=== PATIENT | female | born 1955 | race Caucasian/White ===

== ENCOUNTER 2021-06-25 09:48 | Inpatient (IN) | payer OTHER ==
--- OUTSIDE RECORDS SUMMARY | 2021-06-25 09:51 | XMS REPORT | Continuity of Care Document ---
:1955 Author Organization [facility] t Address [address] [place] [address] Care Team Providers Name Role Phone Estefany Doty MD Primary Care Physician Alfreda KAUFMAN, Carey Attending Clinician Unavailable Problems Condition Condition Condition Status Onset Resolution Last Treating Co mments Source Name Details Category Date Date Treatment Clinician Date Neuropathy Neuropathy Disease Active [place] 2-10 [facility] 00:00: st 00 Osteoarthr Osteoarthr Disease Active [place] itis itis 2-10 Methodi 00:00: st 00 Type 2 Type 2 Disease Active [place] diabetes diabetes 2-10 Method i mellitus mellitus 00:00: st 00 HLD HLD Disease Active [place] (hyperlipi (hyperlipi 2-10 Me thodi demia) demia) 00:00: st 00 Hypertensi Hypertensi Disease Active [place] on on 2-10 Methodi 00:00: st 00 Episodic Episodic Disease Active Overview: Rosales [place] mood mood 2-10 Formattin Methodi disorder disorder 00:00: g of this st note might be different from the original. Mood disorder Allergies, Adverse Reactions, Alerts Allergy Allergy Status Severity Reaction(s) Onset Inactive Treating Comm ents Source Name Type Date Date Clinician Scotty Propensi Active Moe Inhibito ty to 08-04 Methodi rs adverse 00:00: st reaction 00 s to drug Lisinopr Propensi Active [place] ty to 08-04 Methodi adverse 00:00: st reaction 00 s to drug Social History Social Habit Start Date Stop Date Quantity Comments Source Alcohol intake 2017-01-24 2017-01-24 Current [facility] thodist 00:00:00 00:00:00 non-drinker of alcohol (finding) Sex Ass[birth year] [facility] ethodist 00:00:00 00:00:00 Smoking Status Start Date Stop Date Source Never smoker [place] Methodis t Medications Ordered Filled Start Stop Current Ordering Indication Dosage Frequency Signature Comments Components Source Medication Medication Date Date Medication? Clinician (SIG) Name Name Bactrim DS Bactrim DS 2020-0 2020- No Yao [address] [facility] Pyridium Pyridium 2020-0 2020- No Yao [address] [facility] 07[facility] - 00:[facility]: 00:00 meals [facility] 00 :00 [facility] Wellbutrin Wellbutrin 2019-0 Yes Yao [address] [facility] XL XL 07-03 [facility] - 00:[facility]: morning [facility] 00 [facility] Magnesium Magnesium 2019-0 2020- No Yao [address] [facility] 07-02-04 [facility] - 00:00: 00:00 meal [facility] 00 :00 [facility] Sure Sure 2018-0 Yes Yao [address] [facility] Comfort Pen Comfort Pen 07-04 [facility] [place] 00:[place]: [facility] 00 [facility] simvastatin Yes TAKE 1 [place] (ZOCOR) 10 6-09 TABLET Methodi MG tablet 00:00: DAILY st 00 glimepiride Yes TAKE 1 [place] (AMARYL) 4 5-17 TABLET [facility]i MG tablet 00:00: DAILY st JARDIANCE 2016- Yes TAKE 1 [place] 25 mg 5-16 TABLET [facility]i tablet 00:00: DAILY st buPROPion Yes Depression TAKE 1 Moe XL 4-25 with TABLET Methodi (WELLBUTRIN 00:00: anxiety DAILY st XL) 150 MG 00 24 hr tablet nystatin Yes APPLY Abhi (MYCOSTATIN 4-25 TOPICALLY Met aleah ) 100,000 00:00: TWICE A st unit/gram 00 DAY cream benzonatate Yes 100mg [id number] Take 1 Abhi (TESSALON) 3-10 [id number] capsule Methodi 100 MG 00:00: 3D ([address] capsule 00 total) by mouth 3 (three) times a day as needed for cough. BD INSULIN Yes USE [place] PEN NEEDLE 02-03 DIRECTED Metho di UF MINI 31 00:00: st gauge x 00 02/10" needle valsartan Yes TAKE 1 [place] (DIOVAN) 3-09 TABLET [facility]i 320 MG 00:00: DAILY st tablet 00 metFORMIN Yes TAKE 1 [place] (GLUCOPHAGE 3-03 TABLET Method i ) 1,000 mg 00:00: TWICE A st tablet DAY FREESTYLE Yes USE TO [place] LITE STRIPS 3-03 TEST TWICE Me thodi strip test 00:00: A DAY st strips 00 cetirizine Yes 10mg QD Take 10 mg [place] (ZyrTEC) 10 2-27 by mouth Meth dany MG tablet 10:01: daily. st 19 multivitami Yes 1{tbl} QD Take 1 [place] 2-27 tablet by Miguelito (THERAGRAN) 10:00: mouth st tablet 22 daily. CYANOCOBALA Yes 1{tbl} QD Take 1 [place] MIN, 2-27 tablet by Miguelito VITAMIN 10:00: mouth st B-12, 22 daily. (VITAMIN B-12 ORAL) LACTOBACILL Yes 1{capsu QD Take 1 [place] US 2-27 le} capsule by Miguelito ACIDOPHILUS 10:00: mouth st (PROBIOTIC 22 daily. ORAL) fexofenadin Yes 1{tbl} QD Take 1 [place] e-pseudoepH 2-27 tablet by Met bullard EDrine 09:59: mouth st (DAYLIN-D 07 daily. 24) 180-240 mg per 24 hr tablet naproxen Yes 250mg Q.5D Take 250 [place] (NAPROSYN) 2-27 mg by Methodi 250 MG 09:59: mouth 2 st tablet 07 (two) times a day with meals. traMADol Yes 50mg Q6H Take 50 mg Marcin ston (ULTRAM) 50 2-27 by mouth Meth dany mg tablet 09:34: every 6 st 09 (six) hours as needed for moderate pain. PROAIR HFA Yes USE 2 [place] 90 2-03 INHALATION Methodi mcg/actuati 00:00: S EVERY 6 s t on inhaler 00 HOURS NEEDED FOR WHEEZING LANTUS 2015-11 Yes INJECT 60 [place] SOLOSTAR 1-22 UNITS Methodi 100 unit/mL 00:00: UNDER THE s t (3 mL) 00 SKIN EVERY insulin pen EVENING amLODIPine 2015-11 Yes TAKE 1 [place] (NORVASC) 1-01 TABLET Methodi 10 MG 00:00: DAILY st tablet 00 pen needle, Yes Type 2 Use once [place] diabetic 31 9-23 diabetes daily with Methodi gauge x 00:00: mellitus, lantus pen st 5/16" 00 uncontrolle needle d (HCC) lancets Yes [facility] Methodi 00:00: mellitus, st 00 uncontrolle d (HCC) FREESTYLE Yes USE [place] FREEDOM 1-13 DIRECTED Methodi LITE kit 00:00: TWICE A st 00 DAY. Lantus Lantus Yes Yao inject [address] [facility] SoloStar SoloStar [facility] Gabapentin Gabapentin Yes Yao [address] [facility] Simvastatin Simvastatin Yes Yao [address] [facility] - evening [facility] Amlodipine Amlodipine Yes Yao [address] [facility] Besylate Besylate [facility] Trulicity Trulicity Yes Yao as [facility] Aspirin Aspirin Yes Yao [address] Adult Adult [facility] Gabapentin Gabapentin Yes Yao TAKE [address] [facility] [facility] CAPSULE [facility] - TWICE A Memoria DAY l [facility] Metformin Metformin Yes Yao [address] HCl HCl [facility] with a [facility] - meal [facility] Zyrtec Zyrtec Yes Yao 1 tablet [facility] Allergy Allergy [facility] Valsartan Valsartan Yes Yao [address] [facility] Immunizations Ordered Filled Immunization Date Status Comments Sourc e Immunization Name Name Afluria single dose Afluria single dose 2019-08-[address] [facility] 00[facility]00 [facility] Influenza, 2015-08-27 Completed Moe Method ist Quadrivalent 00:00:00 Tdap 2011-11-28 Completed Moe Method ist 00:00:00 Procedures This patient has no known procedures. Plan of Care Planned Activity Planned Date Details Comments Source Future Scheduled 2021-07-29 INFLUENZA VACCINE [place] [facility] 00:00:00 [code = INFLUENZA VACCINE] Future Scheduled 2020 65+ PNEUMOCOCCAL [place] [facility] 00:00:00 VACCINE (1 of 1 - PPSV23) [code = 65+ PNEUMOCOCCAL VACCINE (1 of 1 - PPSV23)] Future Scheduled 2018-08-09 BREAST CANCER [facility] thodist Test 00:00:00 SCREENING [code = BREAST CANCER SCREENING] Future Scheduled 2005 COLONOSCOPY SCREENING [facility] 00:00:00 [code = COLONOSCOPY SCREENING] Future Scheduled 2005 SHINGLES VACCINES (#1) [place] [facility] Test 00:00:00 [code = SHINGLES VACCINES (#1)] Future Scheduled [address] malignant neoplasm of cervix (procedure) [code = 492957109] Future Scheduled 1967 COVID-19 VACCINE (1) Marcin chiquita [facility] 00:00:00 [code = COVID-19 VACCINE (1)] Encounters Start End Encounter Admission Attending Care Care Encounter Source Date/Time Date/Time Type Type Clinicians Facility Department ID 2021-04-10 2021-04-10 Outpatient [facility] [id number] [facility] 2021-01-21 2021-01-21 Outpatient [facility] [id number] [facility] 2021-01-19 2021-01-19 [facility] [id number] 2021-01-05 2021-01-05 Out[facility] [id number] [facility] 2021-01-05 2021-01-05 Out[facility] [id number] [facility] 2020-10-06 2020-10-06 Outpatient [facility] [id number] [facility] 2020-09-16 2020-09-16 Outpatient [facility] [id number] [facility] 2020-07-28 2020-07-28 [facility] [id number] 10:15:00 10:15:[address] Luke s - Drive [facility] Family [facility] l Medicine Outpati ent Clinics 2020-07-03 2020-07-03 [facility] [id number] 13:15:00 13:15:00 t [place] Luke s - Drive [facility] Family [facility] l Medicine Outpati ent Clinics 2020-06-03 2020-06-03 [facility] [id number] 08:10:00 08:10:00 t [place] [address] Luke s - Drive [facility] Family Medicine l Medicine Outpati ent Clinics 2020-04-02 2020-04-02 [facility] [id number] 14:30:00 14:30:00 t [place] [address] Luke s - Drive [facility] Family Medicine l Medicine Outpati ent Clinics 2020-03-19 2020-03-19 [facility] [id number] 16:00:00 16:00:00 t [place] [address] Luke s - Drive [facility] Family Medicine l Medicine Outpati ent Clinics 2020-03-18 2020-03-18 [facility] [id number] 10:06:00 10:06:00 t [place] [address] Luke s - Drive [facility] Medicine Outpati ent Clinics 2020-02-19 2020-02-19 [facility] [id number] 10:31:00 10:31:00 t [place]ite [place] [employer] [employer] Luke s - Drive [facility] Medicine Outpati ent Clinics 2020-02-14 2020-02-14 [facility] [id number] 11:00:00 11:00:00 t [facility] Road [facility] Medicine Outpati ent Clinics 2020-02-14 2020-02-14 [facility] [id number] 09:52:00 09:52:00 t [facility] Road [facility] Medicine Outpati ent Clinics 2020-01-25 2020-01-25 [facility] [id number] 10:49:00 10:49:00 t [place]ite [employer] s - Drive [facility] Medicine Outpati ent Clinics 2020-01-12 2020-01-12 [facility] [id number] 00:00:00 00:00:00 Deandra Thompson [id number] Aurelio Suh [id number] Professio [id number] [address] 2019-12-25 2019-12-25 [facility] [id number] 09:30:00 09:30:00 t Kywa Steiner - [facility] Medicine Medicine Outpati ent Clinics 2019-11-30 2019-11-30 [facility] [id number] 08:30:00 08:30:00 t [place]ite [employer] [employer] s - Drive [facility] Medicine Outpati ent Clinics 2019-11-16 2019-11-16 [facility] [id number] 15:35:00 15:35:00 t [address] [employer] s - Drive [facility] Medicine Outpati ent Clinics 2019-11-01 2019-11-01 [facility] [id number] 10:00:00 10:00:00 t [employer] - [employer] [facility] Medicine Outpati ent Clinics 2019-10-31 2019-10-31 [facility] [id number] 09:59:00 09:59:00 t Identia [facility] Medicine Outpati ent Clinics 2019-08-28 2019-08-28 [facility] [id number] 09:51:00 09:51:00 t Identia [facility] Medicine Outpati ent Clinics 2019-08-27 2019-08-27 [facility] [id number] 09:46:00 09:46:00 t Identia [facility] Medicine Outpati ent Clinics 2019-08-22 2019-08-22 [facility] [id number] 08:15:00 08:15:[address] [facility] Outpati ent Clinics Results This patient has no known results.
[2021-06-25] MEDS ORDERED: NA CHLORIDE 0.9% 1,000 ML ONE (11:15)
[2021-06-25 11:32] LABS: Absolute Lymphocytes (CBC) 0.6 K/uL (0.7-4.9); Basophils % 0.1 % (0-1.3); Hematocrit 32.2 % (36.0-45.0); Lymphocytes % 9.6 % (15.3-44.8); RBC Red Blood Cell Count 4.16 M/uL (3.86-4.86)
[2021-06-25 11:33] LABS: Protime INR 1.19
[2021-06-25] MEDS ORDERED: METHYLPREDNISOLONE 125 MG INJ ONE (11:43)
--- NOTE | 2021-06-25 12:31 | RAD REPORT ---
EXAM DESCRIPTION: Jarvis Single View06/25/2021 10:16 am CLINICAL HISTORY: sob COMPARISON: 2016 FINDINGS: Moderate bilateral pulmonary opacities. The heart is normal size IMPRESSION: Moderate bilateral pulmonary opacities may represent pneumonia
[2021-06-25 12:56] LABS: ALT/SGPT 28 U/L (12-78); AST/SGOT 36 U/L (15-37); Albumin 2.5 g/dL (3.4-5.0); Alkaline Phosphatase 65 U/L (45-117); BUN Blood Urea Nitrogen 22 mg/dL (7-18); Bicarbonate 26 mmol/L (21-32); Bilirubin Direct 0.1 mg/dL (0-0.2); Bilirubin Total 0.3 mg/dL (0.2-1.0); Ferritin 115.6 ng/mL (8-388); Glucose Level 101 mg/dL (74-106); Magnesium 1.6 mg/dL (1.8-2.4); NT PRO-BNP 165 pg/mL (<125); Potassium 3.9 mmol/L (3.5-5.1); Protein, Total 6.6 g/dL (6.4-8.2); Sodium Level 142 mmol/L (136-145); Troponin (Emerg Dept Use Only) < 0.02 ng/mL (0.0-0.045)
--- NOTE | 2021-06-25 13:18 | RAD REPORT ---
EXAM DESCRIPTION: CT - Chest For Pe Angio - 06/25/2021 1:07 pm CLINICAL HISTORY: SOB COMPARISON: Thorax Wo Con dated 05/23/2017 FINDINGS: Chest Wall: No suspicious thyroid nodules or pathologic lymphadenopathy. Lungs: Moderate to severe bilateral airspace disease. Pleura: No significant effusions or pneumothorax. Mediastinum/freddy: No pathologic lymphadenopathy. Small hiatal hernia. Question gastroesophageal reflu x disease as there is some circumferential thickening of distal esophagus. Pulmonary arteries/Aorta: No filling defect identified. No aortic aneurysm. Heart: No significant pericardial effusion. Cardiomegaly. Upper abdomen: No acute abnormality. Bones: No acute abnormality. Scattered degenerative changes are present spine. IMPRESSION: Negative for pulmonary embolism. Moderate to severe bilateral airspace disease concernin g for multifocal pneumonia, including Covid-19.
--- NOTE | 2021-06-25 13:32 | EDPHYS ---
Physician Documentation [facility] Name: Jazlyn Granados Age: 65 yrs Sex: Female : 1955 Arrival Date: 06/25/2021 Time: 09:49 Bed 17 Private MD: ED Physician Bill Castro HPI: 06/25 10:05 This 65 yrs old Female presents to ER via Wheelchair with complaints of cp Shortness Of Breath - covid+. Historical: - Allergies: 10:03 Lisinopril; aa5 - PMHx: 10:03 Anxiety; Depression; Diabetes - IDDM; Hyperlipidemia; Hypertension; aa5 - Immunization history:: Client reports having NOT received the Covid vaccine. Flu vaccine is not up to date. - Social history:: Smoking status: Patient denies any tobacco usage or history of. Exam: 12:38 ECG was reviewed by the Attending Physician. cp Vital Signs: 09:52 BP 124 / 96; Pulse 96; Resp 30 S; Temp 97.4(TE); Pulse Ox 62% on R/A; Weight 78.93 kg aa5 (R); Height 4 ft. 11 in. (149.86 cm) (R); 09:54 Pulse Ox 93% on Non-rebreather mask; aa5 12:00 BP 93 / 51; Pulse 91; Resp 27; Pulse Ox 97% on NC; tr6 09:52 Body Mass Index 35.14 (78.93 kg, 149.86 cm) aa5 MDM: 09:58 Patient medically screened. [facility] 06/25 09:59 Order name: Basic Metabolic Panel; Complete Time: 13:06 cp 06/25 13:06 Interpretation: Normal except: CL 113; BUN 22; GFR 65. cp 06/25 09:59 Order name: CBC with Diff; Complete Time: 11:40 cp 06/25 11:40 Interpretation: Normal except: HGB 10.6; HCT 32.2; MCV 77.5; MCH 25.4; RDW 16.1; MPV cp 7.0; PAPI% 82.6; LYM% 9.6; LYMA 0.6. 06/25 09:59 Order name: LFT's; Complete Time: 13:06 cp 06/25 09:59 Order name: Magnesium; Complete Time: 13:06 cp 06/25 09:59 Order name: NT PRO-BNP; Complete Time: 13:06 06/25 09:59 Order name: PT-INR; Complete Time: 11:40 06/25 09:59 Order name: Troponin (emerg Dept Use Only); Complete Time: 13:06 06/25 09:59 Order name: CRP; Complete Time: 13:06 06/25 09:59 Order name: Ferritin; Complete Time: 13:06 06/25 09:59 Order name: Urine Microscopic Only 06/25 10:15 Order name: Blood Culture Adult (2) 06/25 10:15 Order name: Lactate; Complete Time: 11:40 06/25 10:15 Order name: Procalcitonin; Complete Time: 11:40 06/25 10:16 Order name: Blood Culture ED[facility] 06/25 13:35 Order name: ABG 06/25 13:59 Order name: Basic Metabolic Panel [facility] 06/25 13:59 Order name: Basic Metabolic Panel [facility] 06/25 13:59 Order name: Lipid Profile [facility] 06/25 13:59 Order name: Lipid Profile [facility] 06/25 13:59 Order name: Magnesium [facility] 06/25 13:59 Order name: Magnesium [facility] 06/25 13:59 Order name: CBC with Automated Diff [facility] 06/25 13:59 Order name: CBC with Automated Diff [facility] 06/25 20:26 Order name: Glucose, Ancillary Testing [facility] 06/25 22:38 Order name: Glucose, Ancillary Testing [facility] 06/26 05:20 Order name: Liver (Hepatic) Function [facility] 06/26 07:56 Order name: Glucose, Ancillary Testing [facility] 06/26 11:47 Order name: Glucose, Ancillary Testing ED[facility] 06/26 16:30 Order name: Glucose, Ancillary Testing [facility] 06/26 20:07 Order name: Glucose, Ancillary Testing [facility] 06/25 09:59 Order name: XRAY Chest (1 view); Complete Time: 12:39 06/25 12:39 Interpretation: Report reviewed. 06/25 09:59 Order name: EKG; Complete Time: 10:00 06/25 09:59 Order name: Cardiac monitoring; Complete Time: 10:23 06/25 09:59 Order name: EKG - Nurse/Tech; Complete Time: 10:23 06/25 09:59 Order name: IV Saline Lock; Complete Time: 10:44 06/25 09:59 Order name: Labs collected and sent; Complete Time: 10:23 06/25 09:59 Order name: O2 Per Protocol; Complete Time: 10:23 06/25 09:59 Order name: O2 Sat Monitoring; Complete Time: 10:23 06/25 10:57 Order name: Labs - recollect needed: recollect all please, hemolyzed; Complete Time: em1 11:26 06/25 11:59 Order name: CT Chest For PE Angio; Complete Time: 13:23 06/25 13:59 Order name: CONS Physician Consult [facility] 06/25 13:59 Order name: Consistent Carb (ADA) 1800 Jose Eduardo [facility] 06/25 14:00 Order name: Respiratory Therapy Consult [facility] 06/27 05:51 Order name: D-Dimer [facility] 06/27 05:55 Order name: Liver (Hepatic) Function [facility] 06/27 05:55 Order name: C-Reactive Protein [facility] 06/27 05:55 Order name: Ferritin [facility] 06/27 08:19 Order name: Vancomycin Level Trough [facility] 06/27 08:30 Order name: Glucose, Ancillary Testing [facility] 06/27 13:14 Order name: Glucose, Ancillary Testing [facility] 06/27 17:58 Order name: Glucose, Ancillary Testing [facility] 06/27 20:25 Order name: Glucose, Ancillary Testing EDMS EC:38 Rate is 85 beats/min. Rhythm is regular. NE interval is normal. QRS interval is normal. cp QT interval is normal. T waves are Inverted in lead aVR. Interpreted by me. Reviewed by me. Administered Medications: 10:56 Drug: NS 0.9% 1000 ml Route: IV; Rate: 1 bolus; Site: right wrist; tr6 17:18 Follow up: Response: No adverse reaction; IV Status: Completed infusion jd3 11:26 Drug: SOLU-Medrol (methylPrednisoLONE) 125 mg Route: IVP; Site: right antecubital; tr6 12:20 Follow up: Response: No adverse reaction jd3 14:50 Drug: Magnesium Sulfate 1 grams Route: IVPB; Infused Over: 1 hrs; Site: right tr6 antecubital; 17:18 Follow up: Response: No adverse reaction; IV Status: Infusion continued upon admission jd3 Disposition Summary: 06/25/21 13:31 Hospitalization Ordered Hospitalization Status: Inpatient Admission cp Provider: Bubba Velez cp Condition: Stable cp Problem: new cp Symptoms: have improved cp Bed/Room Type: Standard cp Location: [facility] ER HOLD(06/25/21 19:34) dw Room Assignment: ERHOLD-(06/25/21 19:34) dw Diagnosis - Other viral pneumonia cp - Hypoxemia cp Forms: - Medication Reconciliation Form cp - SBAR form cp Addendum: 06/29/2021 06:44 Co-signature as Attending Physician, Bill Castro MD I agree with the assessment and c parks plan of care. Signatures: Dispatcher [employer] Adelaida Vu RN RN Bill Jones MD MD cha Martinez, Eric em1 Beatriz Cid RN RN aa5 Bill Dash, PA PA Neyda Gauthier, RN RN tr6 Sathish Oakes RN jd3 Corrections: (The following items were deleted from the chart) 06/25 10:04 10:03 PMHx: Asthma; aa5 aa5 19:34 13:31 Telemetry/MedSurg (Inpatient) cp dw 19:34 13:31 cp dw
--- NOTE | 2021-06-25 13:32 | ER ---
Nurse's Notes [facility] Name: Jazlyn Granados Age: 65 yrs Sex: Female : 1955 Arrival Date: 06/25/2021 Time: 09:49 Bed 17 Private MD: Diagnosis: Other viral pneumonia;Hypoxemia Presentation: 06/25 09:52 Chief complaint: Patient states: sent by Dr. Velez, COVID-19 positive and SOB. Pt aa5 currently 62% O2 sat RA. Pt is A\T\O x 4. 09:52 Coronavirus screen: Client reports previous positive COVID test result. Ebola Screen: aa5 Patient negative for fever greater than or equal to 101.5 degrees Fahrenheit, and additional compatible Ebola Virus Disease symptoms. Initial Sepsis Screen: Does the patient meet any 2 criteria? RR > 20 per min. HR > 90 bpm. Yes Does the patient have a suspected source of infection? Yes: Productive cough/pneumonia. Risk Assessment: Do you want to hurt yourself or someone else? Patient reports no desire to harm self or others. Onset of symptoms was June 25, 2021. 09:52 Acuity: KAELYN 1 aa5 09:52 Method Of Arrival: Wheelchair aa5 Historical: - Allergies: 10:03 Lisinopril; aa5 - PMHx: 10:03 Anxiety; Depression; Diabetes - IDDM; Hyperlipidemia; Hypertension; aa5 - Immunization history:: Client reports having NOT received the Covid vaccine. Flu vaccine is not up to date. - Social history:: Smoking status: Patient denies any tobacco usage or history of. Assessment: 13:01 Reassessment: pt transported to CT. tr6 14:06 Reassessment: pt placed on high flow O2 by RT. tr6 Vital Signs: 09:52 BP 124 / 96; Pulse 96; Resp 30 S; Temp 97.4(TE); Pulse Ox 62% on R/A; Weight 78.93 kg aa5 (R); Height 4 ft. 11 in. (149.86 cm) (R); 09:54 Pulse Ox 93% on Non-rebreather mask; aa5 12:00 BP 93 / 51; Pulse 91; Resp 27; Pulse Ox 97% on NC; tr6 09:52 Body Mass Index 35.14 (78.93 kg, 149.86 cm) aa5 ED Course: 09:49 Patient arrived in ED. as 09:52 Arm band placed on Patient placed in an exam room, on a stretcher. aa5 09:58 Bill Castro MD is Attending Physician. [facility] 09:58 Bill Dash PA is PHCP. cp 09:58 Bill Castro MD is Attending Physician. 10:01 Neyda Madera RN is Primary Nurse. tr6 10:02 Triage completed. aa5 10:16 XRAY Chest (1 view) In Process Unspecified. EDMS 10:22 Patient has correct armband on for positive identification. Bed in low position. Call 5 light in reach. Side rails up X 1. Warm blanket given. telemetry monitor on. Pulse ox on. NIBP on. 10:22 Missed attempt(s): 20 gauge in right forearm. 5 10:23 EKG done, by ED staff, reviewed by Bill Castro MD. mh5 11:26 Inserted saline lock: 18 gauge in right hand, using aseptic technique. tr6 11:26 Inserted saline lock: 18 gauge in right antecubital area, using aseptic technique. tr6 Blood collected. 13:07 CT Chest For PE Angio In Process Unspecified. EDMS 13:31 Bubba Velez MD is Hospitalizing Provider. 06/27 19:43 Primary Nurse role handed off by Neyda Madera RN mw2 Administered Medications: 06/25 10:56 Drug: NS 0.9% 1000 ml Route: IV; Rate: 1 bolus; Site: right wrist; tr6 17:18 Follow up: Response: No adverse reaction; IV Status: Completed infusion jd3 11:26 Drug: SOLU-Medrol (methylPrednisoLONE) 125 mg Route: IVP; Site: right antecubital; tr6 12:20 Follow up: Response: No adverse reaction jd3 14:50 Drug: Magnesium Sulfate 1 grams Route: IVPB; Infused Over: 1 hrs; Site: right tr6 antecubital; 17:18 Follow up: Response: No adverse reaction; IV Status: Infusion continued upon admission jd3 Outcome: 13:31 Decision to Hospitalize by Provider. 06/27 21:55 Patient left the ED. mw Signatures: Dispatcher [employer] EDWA Liang, Anabela, RN Bill Reveles MD MD cha Martinez, Amelia as Calderon, Audri, RN RN aa5 Bill Dash PA PA cp Martinez, Maria 5 Sathish Oakes RN RN jd3 Delano Becerra2 Neyda Madera RN RN tr6 Corrections: (The following items were deleted from the chart) 06/25 10:04 10:03 PMHx: Asthma; aa5 aa5
[2021-06-25] MEDS ORDERED: ONDANSETRON 4 MG/2 ML VIAL IV PRN (13:55)
[2021-06-25 13:59] LABS: Arterial Blood Carboxyhemoglob 0.9 % (0-1.5); Blood Gas Oxyhemoglobin 90.3 % (94-97); Blood O2 Saturation 91.9 % (92-98.5)
[2021-06-25] MEDS ORDERED: MAGNESIUM SULFATE 1 gm IVPB 1 GM/100 ML BAG IV ONE (14:06)
[2021-06-25] MEDS ORDERED: ENOXAPARIN 40 MG/0.4 ML SQ SCH (15:00)
[2021-06-25] MEDS: INSULIN -REGULAR HUMAN 50 UNIT/0.5 ML ML SQ SCH ×2 (16:30→20:19)
[2021-06-25] MEDS ORDERED: ASPIRIN EC 81 MG TAB PO SCH (16:47)
[2021-06-25] MEDS: METHYLPREDNISOLONE 125 MG INJ IV SCH (17:00)
[2021-06-25] MEDS: IVERMECTIN 3 MG TABLET PO SCH (17:00)
[2021-06-25] MEDS ORDERED: ASPIRIN EC 81 MG TAB PO ONE (17:45)
[2021-06-25] MEDS ORDERED: ENOXAPARIN 40 MG/0.4 ML SQ ONE (17:45)
[2021-06-25 18:11] VITALS: BMI 35.1
[2021-06-25] MEDS: BARICITINIB 2 MG TABLET PO SCH (19:00)
[2021-06-25] MEDS: FAMOTIDINE 20 MG/2 ML VIAL IV SCH (20:21)
[2021-06-25] MEDS ORDERED: DIPHENHYDRAMINE 25 MG TAB/CAP ONE (20:23)
[2021-06-25] MEDS ORDERED: predniSONE 20 MG TAB ONE ×2 (20:24→20:25)
[2021-06-25] MEDS ORDERED: FAMOTIDINE 20 MG TAB ONE (20:24)
[2021-06-25] MEDS ORDERED: INSULIN -REGULAR HUMAN 50 UNIT/0.5 ML ML ONE (20:41)
[2021-06-25] MEDS ORDERED: FAMOTIDINE 20 MG/2 ML VIAL IV ONE (20:41)
[2021-06-26] MEDS: METHYLPREDNISOLONE 125 MG INJ IV SCH ×3 (00:08→16:34)
[2021-06-26] MEDS ORDERED: METHYLPREDNISOLONE 40 MG INJ ONE ×2 (00:31→09:38)
[2021-06-26 05:06] LABS: Absolute Lymphocytes (CBC) 0.7 K/uL (0.7-4.9); Basophils % 0.1 % (0-1.3); Hematocrit 30.9 % (36.0-45.0); Lymphocytes % 18.1 % (15.3-44.8); MPV 7.2 fL (7.6-11.3); RBC Red Blood Cell Count 4.01 M/uL (3.86-4.86)
[2021-06-26 05:20] LABS: ALT/SGPT 27 U/L (12-78); AST/SGOT 27 U/L (15-37); Albumin 2.3 g/dL (3.4-5.0); Alkaline Phosphatase 67 U/L (45-117); BUN Blood Urea Nitrogen 23 mg/dL (7-18); Bicarbonate 27 mmol/L (21-32); Bilirubin Direct < 0.1 mg/dL (0-0.2); Bilirubin Total 0.2 mg/dL (0.2-1.0); Glucose Level 158 mg/dL (74-106); HDL Cholesterol 44 mg/dL (40-60); LDL Cholesterol, Calculated 34 (<130); Potassium 4.3 mmol/L (3.5-5.1); Protein, Total 6.8 g/dL (6.4-8.2); Sodium Level 143 mmol/L (136-145)
[2021-06-26] MEDS: INSULIN -REGULAR HUMAN 50 UNIT/0.5 ML ML SQ SCH ×4 (07:30→20:48)
[2021-06-26] MEDS ORDERED: RIVAROXABAN 10 MG TABLET PO SCH (09:00)
[2021-06-26] MEDS: BARICITINIB 2 MG TABLET PO SCH (09:34)
[2021-06-26] MEDS: FAMOTIDINE 20 MG/2 ML VIAL IV SCH ×2 (09:34→20:49)
[2021-06-26] MEDS: RIVAROXABAN 20 MG TABLET PO SCH (09:35)
[2021-06-26] MEDS ORDERED: FAMOTIDINE 20 MG/2 ML VIAL IV ONE ×2 (09:38→21:01)
[2021-06-26] MEDS ORDERED: INSULIN -REGULAR HUMAN 50 UNIT/0.5 ML ML ONE ×3 (12:23→20:58)
--- NOTE | 2021-06-26 12:58 | P.HP ---
Certification for Inpatient Patient admitted to: Inpatient With expected LOS: >2 Midnights Practitioner: I am a practitioner with admitting privileges, knowledge of patient current condition, hospital course, and medical plan of care. Services: Services provided to patient in accordance with Admission requirements found in Title 42 Section 412.3 of the Code of Federal Regulations Patient History Date of Service: 06/26/21 Reason for admission: COUGH, DYSPNEA History of Present Illness: REGINALD HAD A TELEHEALTH VISIT WITH ME ON FOR COUGH, CONGESTION, YELLOW SPUTUM. I ASKED HER TO GET COVID TEST AND GAVE AUGMENTIN FOR SINUSITIS. SHE CALLED AGAIN YESTERDAY SAYING THAT SHE IS POSTIIVE FOR COVID AND HAS LOW OXYGEN SAT DWON TO 77%. I ASKED HER TO GET TO ER SHE WAS GIVEN STEROIDS IV, IVERMECTIN AND ORAL MONOCOLONAL ABD. SHE IS NOW ON HIGH FLOW OXYGEN. Allergies lisinopril Allergy (Severe, Verified 06/25/21 17:50) Anaphylaxis Home medications list reviewed: Yes Home Medications: Amlodipine Besylate 1 tab PO DAILY 06/26/21 Aspirin [Aspirin EC 81 MG] 1 tab PO DAILY 06/26/21 Bupropion HCl [Wellbutrin Xl] 1 tab PO DAILY 06/26/21 Gabapentin 1 tab PO TID 06/26/21 Losartan Potassium 1 tab PO DAILY 06/26/21 Metformin HCl 1 tab PO BID 06/26/21 Simvastatin 1 tab PO BEDTIME 06/26/21 Zinc 1 tab PO BEDTIME 06/26/21 - Past Medical/Surgical History Has patient received pneumonia vaccine in the past: Yes - Social History Smoking Status: Never smoker Alcohol use: No CD- Drugs: No Caffeine use: No Place of Residence: Home Review of Systems General: Weakness Physical Examination - Vital Signs Temperature: 98.0 F Blood Pressure: 145/81 Pulse: 81 Respirations: 25 Pulse Ox (%): 92 - Physical Exam General: Oriented x3, Moderate distress, Obese HEENT: Atraumatic, PERRLA, Mucous membr. moist/pink, EOMI, Sclerae nonicteric Neck: Supple, 2+ carotid pulse no bruit, No LAD, Without JVD or thyroid abnormality Respiratory: Clear to auscultation bilaterally, Normal air movement Cardiovascular: Regular rate/rhythm, Normal S1 S2 Gastrointestinal: Normal bowel sounds, No tenderness Musculoskeletal: No tenderness Integumentary: No rashes Neurological: Normal gait, Normal speech, Normal strength at 5/5 x4 extr, Normal tone, Normal affect Lymphatics: No axilla or inguinal lymphadenopathy - Studies Laboratory Data (last 24 hrs) 06/25/21 11:18: Sodium 142, Potassium 3.9, BUN 22 H, Creatinine 0.87, Glucose 101, Magnesium 1.6 L, Total Bilirubin 0.3, AST 36, ALT 28, Alkaline Phosphatase 65 Assessment and Plan - Problems (Diagnosis) (1) Pneumonia due to COVID-19 virus Current Visit: Yes Status: Acute Plan: IV STEORIDS OXYGEN HIGH FLOW. IVERMECTIN TWO DOSES. ORAL BARICITINIB. XARELTO PO. SUPPORTIVE CARE. DR. ZALDIVAR CONSULTED. (2) Hypoxia Current Visit: Yes Status: Acute Plan: ABOVE. PROGNOSIS GUARDED. SHE REFUSED TO TAKE VACCINE BEFORE. - Advance Directives Does patient have a Living Will: No Does patient have a Durable POA for Healthcare: No
[2021-06-26] MEDS: GABAPENTIN 300 MG CAP PO SCH ×2 (13:57→20:48)
[2021-06-26] MEDS ORDERED: GABAPENTIN 300 MG CAP ONE ×2 (14:11→21:01)
[2021-06-26] MEDS ORDERED: METHYLPREDNISOLONE 125 MG INJ ONE (16:01)
[2021-06-26] MEDS: METFORMIN HCL 500 MG TAB PO SCH (16:34)
[2021-06-26] MEDS: ZINC SULFATE 220 MG CAP PO SCH (20:49)
[2021-06-26] MEDS: ATORVASTATIN 10 MG TAB PO SCH (20:52)
[2021-06-26] MEDS ORDERED: HOME MED 1 EA UNK (Simvastatin [Simvastatin] 20 MG Tablet) PO SCH (21:00)
[2021-06-26] MEDS ORDERED: ATORVASTATIN 20 MG TAB ONE (21:01)
[2021-06-26] MEDS ORDERED: ZINC SULFATE 220 MG CAP ONE (21:01)
--- NOTE | 2021-06-26 22:00 | P.CNS ---
Date of Consult: 06/26/21 (Pt agreed to TV) Reason for Consult: COVID penumonia Chief Complaint: COUGH, DYSPNEA History of Present Illness: AGe 65 AW COVID pneumonia, pulmonary complaintsand hypoxemia Allergies lisinopril Allergy (Severe, Verified 06/25/21 17:50) Anaphylaxis Home Medications: Amlodipine Besylate 1 tab PO DAILY 06/26/21 Aspirin [Aspirin EC 81 MG] 1 tab PO DAILY 06/26/21 Bupropion HCl [Wellbutrin Xl] 1 tab PO DAILY 06/26/21 Gabapentin 1 tab PO TID 06/26/21 Losartan Potassium 1 tab PO DAILY 06/26/21 Metformin HCl 1 tab PO BID 06/26/21 Simvastatin 1 tab PO BEDTIME 06/26/21 Zinc 1 tab PO BEDTIME 06/26/21 - Past Medical/Surgical History -: Diabetes -: HTN -: Hyperlipidemia - Social History Smoking Status: Unknown if ever smoked Alcohol use: No CD- Drugs: No Caffeine use: No Place of Residence: Home Physical Examination Temp Pulse Resp BP Pulse Ox 98.2 F 86 27 H 119/67 86 L 06/26/21 19:58 06/26/21 19:58 06/26/21 19:58 06/26/21 19:58 06/26/21 19:58 - Problems (1) Pneumonia due to COVID-19 virus Current Visit: Yes Status: Acute Plan: AGe 65 AW COVID pneumonia/ CXRY BIalteral chanes/ Steroids, ivermectin and Barcitinib/ LAbs reviewed
[2021-06-27] MEDS: METHYLPREDNISOLONE 125 MG INJ IV SCH ×3 (00:02→17:00)
[2021-06-27] MEDS ORDERED: METHYLPREDNISOLONE 125 MG INJ ONE (00:08)
[2021-06-27 05:55] LABS: Albumin 2.5 g/dL (3.4-5.0); Bilirubin Direct 0.1 mg/dL (0-0.2); Bilirubin Total 0.3 mg/dL (0.2-1.0); C-Reactive Protein 47.1 mg/L (<3.00); Ferritin 185.3 ng/mL (8-388); Protein, Total 7.1 g/dL (6.4-8.2)
[2021-06-27] MEDS: INSULIN -REGULAR HUMAN 50 UNIT/0.5 ML ML SQ SCH ×4 (07:30→20:38)
[2021-06-27] MEDS: METFORMIN HCL 500 MG TAB PO SCH ×3 (08:00→17:00)
[2021-06-27] MEDS ORDERED: AMLODIPINE 10 MG TAB ONE (08:17)
[2021-06-27] MEDS ORDERED: GABAPENTIN 300 MG CAP ONE ×3 (08:18→20:37)
[2021-06-27] MEDS ORDERED: ASPIRIN EC 81 MG TAB PO ONE (08:18)
[2021-06-27] MEDS ORDERED: FAMOTIDINE 20 MG/2 ML VIAL IV ONE (08:18)
[2021-06-27] MEDS ORDERED: METFORMIN HCL 500 MG TAB ONE (08:18)
[2021-06-27] MEDS ORDERED: METHYLPREDNISOLONE 40 MG INJ ONE ×2 (08:18→17:50)
[2021-06-27] MEDS: ASPIRIN EC 81 MG TAB PO SCH (08:36)
[2021-06-27] MEDS: AMLODIPINE 10 MG TAB PO SCH (08:37)
[2021-06-27] MEDS: FAMOTIDINE 20 MG/2 ML VIAL IV SCH ×2 (08:37→20:37)
[2021-06-27] MEDS: GABAPENTIN 300 MG CAP PO SCH ×3 (08:37→20:37)
[2021-06-27] MEDS ORDERED: INSULIN -REGULAR HUMAN 50 UNIT/0.5 ML ML ONE ×4 (08:46→20:44)
[2021-06-27] MEDS: BARICITINIB 2 MG TABLET PO SCH (10:02)
[2021-06-27] MEDS: LOSARTAN POTASSIUM 50 MG TABLET PO SCH (10:03)
[2021-06-27] MEDS: BUPROPION HCL XL 150 MG TAB PO SCH (10:03)
[2021-06-27] MEDS: RIVAROXABAN 20 MG TABLET PO SCH (10:04)
[2021-06-27] MEDS ORDERED: PROMETHAZINE-DM 5 ML OSYR PO PRN (10:47)
--- NOTE | 2021-06-27 11:24 | P.PN ---
Subjective Date of Service: 06/27/21 Chief Complaint: REsp failure Requiring high concentration of Fio2, Better Review of Systems General: Weakness Respiratory: Shortness of Breath Physical Examination - Vital Signs Temperature: 98.2 F Blood Pressure: 122/47 Pulse: 81 Respirations: 25 Pulse Ox (%): 88 - Physical Exam General: Alert, In no apparent distress, Oriented x3 Assessment & Plan - Problems (Diagnosis) (1) Pneumonia due to COVID-19 virus Current Visit: Yes Status: Acute Plan: Stable/ CW present Therapy / On high concentration of FIO2/ VS reviewed
[2021-06-27] MEDS: PROMETH/COD 6.25/10MG SYRUP 5ML PO PRN ×2 (12:29→17:35)
[2021-06-27] MEDS ORDERED: PROMETH/COD 6.25/10MG SYRUP 5ML ONE ×2 (12:46→17:49)
[2021-06-27] MEDS ORDERED: ASCORBIC ACID 500 MG TABLET ONE ×2 (13:30→17:49)
--- NOTE | 2021-06-27 14:29 | P.PN ---
Subjective Date of Service: 06/27/21 Chief Complaint: REsp failure Subjective: Improving TALKED TO HER TODAY. SHE IS FEELING A LOT BETTER. SHE HAS NO CHEST PAIN. NO FEVER. Review of Systems 10-point ROS is otherwise unremarkable Respiratory: Cough, Shortness of Breath Physical Examination - Vital Signs Temperature: 98.1 F Blood Pressure: 120/70 Pulse: 70 Respirations: 25 Pulse Ox (%): 92 - Physical Exam General: Oriented x3, Mild distress, Moderate distress, Obese Cardiovascular: Normal S1 S2 Assessment And Plan - Current Problems (Diagnosis) (1) Pneumonia due to COVID-19 virus Current Visit: Yes Status: Acute Plan: IV STEORIDS OXYGEN HIGH FLOW. IVERMECTIN TWO DOSES. ORAL BARICITINIB. XARELTO PO. SUPPORTIVE CARE. DR. ZALDIVAR CONSULTED. CONTINUE MEDS. FEELS BETTER. HYPOXIA IS BETTER. (2) Hypoxia Current Visit: Yes Status: Acute Plan: ABOVE. PROGNOSIS GUARDED. SHE REFUSED TO TAKE VACCINE BEFORE.
[2021-06-27] MEDS: IVERMECTIN 3 MG TABLET PO SCH (17:33)
[2021-06-27] MEDS ORDERED: ATORVASTATIN 20 MG TAB ONE (20:37)
[2021-06-27] MEDS: ZINC SULFATE 220 MG CAP PO SCH (20:37)
[2021-06-27] MEDS ORDERED: FAMOTIDINE 20 MG TAB ONE (20:37)
[2021-06-27] MEDS ORDERED: ZINC SULFATE 220 MG CAP ONE (20:37)
[2021-06-27] MEDS: ATORVASTATIN 10 MG TAB PO SCH (20:37)
[2021-06-28] MEDS: METHYLPREDNISOLONE 125 MG INJ IV SCH ×3 (00:25→16:14)
[2021-06-28 07:54] LABS: Absolute Lymphocytes (CBC) 0.7 K/uL (0.7-4.9); Hematocrit 31.9 % (36.0-45.0); Lymphocytes % 7.3 % (15.3-44.8); MPV 6.9 fL (7.6-11.3); RBC Red Blood Cell Count 4.15 M/uL (3.86-4.86)
[2021-06-28 08:07] LABS: Albumin 2.4 g/dL (3.4-5.0); Bilirubin Direct 0.1 mg/dL (0-0.2); Bilirubin Total 0.3 mg/dL (0.2-1.0); Potassium 4.4 mmol/L (3.5-5.1); Protein, Total 6.6 g/dL (6.4-8.2)
[2021-06-28] MEDS: AMLODIPINE 10 MG TAB PO SCH (09:24)
[2021-06-28] MEDS: LOSARTAN POTASSIUM 50 MG TABLET PO SCH (09:25)
[2021-06-28] MEDS: GABAPENTIN 300 MG CAP PO SCH ×3 (09:25→19:36)
[2021-06-28] MEDS: METFORMIN HCL 500 MG TAB PO SCH ×2 (09:25→16:14)
[2021-06-28] MEDS: RIVAROXABAN 20 MG TABLET PO SCH (09:25)
[2021-06-28] MEDS: ASPIRIN EC 81 MG TAB PO SCH (09:25)
[2021-06-28] MEDS: FAMOTIDINE 20 MG/2 ML VIAL IV SCH ×2 (09:25→19:36)
[2021-06-28] MEDS: BUPROPION HCL XL 150 MG TAB PO SCH (09:27)
[2021-06-28] MEDS: INSULIN -REGULAR HUMAN 50 UNIT/0.5 ML ML SQ SCH ×4 (09:27→21:00)
[2021-06-28] MEDS: BARICITINIB 2 MG TABLET PO SCH (09:28)
[2021-06-28 10:11] LABS: Blood Morphology Comment NOT SEEN (NOT SEEN); Platelet Estimate ADEQ
--- NOTE | 2021-06-28 11:50 | P.PN ---
Subjective Date of Service: 06/28/21 Chief Complaint: REsp failure Subjective: Improving TALKED TO HER TODAY. SHE IS FEELING A LOT BETTER. SHE HAS NO CHEST PAIN. NO FEVER. SHE IS LOT BETTER. SHE HAS NO CHEST PAIN. SHE IS ABLE TO REDUCE OXYGEN. Physical Examination - Vital Signs Temperature: 97.4 F Blood Pressure: 144/69 Pulse: 99 Respirations: 32 Pulse Ox (%): 89 - Physical Exam General: Oriented x3, Moderate distress, Obese HEENT: Atraumatic, PERRLA, EOMI Neck: Supple, JVD not distended Respiratory: Diminished Cardiovascular: Regular rate/rhythm, Normal S1 S2 Gastrointestinal: Normal bowel sounds, No tenderness Musculoskeletal: No tenderness Integumentary: No rashes Neurological: Normal speech, Normal tone, Normal affect Lymphatics: No axilla or inguinal lymphadenopathy - Studies Medications List Reviewed: Yes Assessment And Plan - Current Problems (Diagnosis) (1) Pneumonia due to COVID-19 virus Current Visit: Yes Status: Acute Plan: IV STEORIDS OXYGEN HIGH FLOW. IVERMECTIN TWO DOSES. ORAL BARICITINIB. XARELTO PO. SUPPORTIVE CARE. DR. ZALDIVAR CONSULTED. CONTINUE MEDS. FEELS BETTER. HYPOXIA IS BETTER. CONT MEDS. (2) Hypoxia Current Visit: Yes Status: Acute Plan: ABOVE. PROGNOSIS GUARDED. SHE REFUSED TO TAKE VACCINE BEFORE.
[2021-06-28] MEDS: PROMETH/COD 6.25/10MG SYRUP 5ML PO PRN ×2 (11:53→19:35)
[2021-06-28] MEDS: ATORVASTATIN 10 MG TAB PO SCH (19:35)
[2021-06-28] MEDS: ZINC SULFATE 220 MG CAP PO SCH (19:35)
[2021-06-29] MEDS: METHYLPREDNISOLONE 125 MG INJ IV SCH ×3 (00:45→16:01)
[2021-06-29 04:52] LABS: Albumin 2.4 g/dL (3.4-5.0); Bilirubin Direct 0.1 mg/dL (0-0.2); Bilirubin Total 0.4 mg/dL (0.2-1.0); C-Reactive Protein 10.9 mg/L (<3.00); Protein, Total 6.3 g/dL (6.4-8.2)
[2021-06-29] MEDS: BARICITINIB 2 MG TABLET PO SCH (08:41)
[2021-06-29] MEDS: BUPROPION HCL XL 150 MG TAB PO SCH (08:41)
[2021-06-29] MEDS: GABAPENTIN 300 MG CAP PO SCH ×3 (08:42→20:55)
[2021-06-29] MEDS: FAMOTIDINE 20 MG/2 ML VIAL IV SCH ×2 (08:42→20:55)
[2021-06-29] MEDS: RIVAROXABAN 20 MG TABLET PO SCH (08:42)
[2021-06-29] MEDS: AMLODIPINE 10 MG TAB PO SCH (08:42)
[2021-06-29] MEDS: ASPIRIN EC 81 MG TAB PO SCH (08:43)
[2021-06-29] MEDS: LOSARTAN POTASSIUM 50 MG TABLET PO SCH (08:43)
[2021-06-29] MEDS: METFORMIN HCL 500 MG TAB PO SCH ×2 (08:43→16:01)
[2021-06-29] MEDS: INSULIN -REGULAR HUMAN 50 UNIT/0.5 ML ML SQ SCH ×4 (08:44→20:55)
[2021-06-29] MEDS ORDERED: D50W 25 GM/50 ML SYRINGE IV PRN (13:16)
[2021-06-29] MEDS ORDERED: GLUCAGON 1 MG/VIAL IM PRN (13:16)
--- NOTE | 2021-06-29 13:16 | P.PN ---
Subjective Date of Service: 06/29/21 Chief Complaint: REsp failure Subjective: Improving TALKED TO HER TODAY. SHE IS FEELING A LOT BETTER. SHE HAS NO CHEST PAIN. NO FEVER. SHE IS LOT BETTER. SHE HAS NO CHEST PAIN. SHE IS ABLE TO REDUCE OXYGEN. SHE IS ON LESSER OXYGEN NOW. IMPROVING. Review of Systems 10-point ROS is otherwise unremarkable General: Weakness, Malaise Respiratory: Shortness of Breath Physical Examination - Vital Signs Temperature: 97.9 F Blood Pressure: 111/55 Pulse: 92 Respirations: 18 Pulse Ox (%): 95 - Physical Exam General: Oriented x3, Moderate distress, Obese HEENT: Atraumatic, PERRLA, EOMI Neck: Supple, JVD not distended Respiratory: Diminished Cardiovascular: Regular rate/rhythm, Normal S1 S2 Gastrointestinal: Normal bowel sounds, No tenderness Musculoskeletal: No tenderness Integumentary: No rashes Neurological: Normal speech, Normal tone, Normal affect Lymphatics: No axilla or inguinal lymphadenopathy - Studies Medications List Reviewed: Yes Assessment And Plan - Current Problems (Diagnosis) (1) Pneumonia due to COVID-19 virus Current Visit: Yes Status: Acute Plan: IV STEORIDS OXYGEN HIGH FLOW. IVERMECTIN TWO DOSES. ORAL BARICITINIB. XARELTO PO. SUPPORTIVE CARE. DR. ZALDIVAR CONSULTED. CONTINUE MEDS. FEELS BETTER. HYPOXIA IS BETTER. CONT MEDS. DOWN TO 25 LT OXYGEN. CONTINUE MEDS. MAY NEED FEW MORE DAYS HERE. (2) Hypoxia Current Visit: Yes Status: Acute Plan: ABOVE. PROGNOSIS GUARDED. SHE REFUSED TO TAKE VACCINE BEFORE.
[2021-06-29] MEDS: PROMETH/COD 6.25/10MG SYRUP 5ML PO PRN (18:15)
[2021-06-29] MEDS: ZINC SULFATE 220 MG CAP PO SCH (20:55)
[2021-06-29] MEDS: INSULIN GLARGINE 100 UNITS/ML SQ SCH (20:55)
[2021-06-29] MEDS: ATORVASTATIN 10 MG TAB PO SCH (20:55)
[2021-06-30] MEDS: METHYLPREDNISOLONE 125 MG INJ IV SCH ×3 (01:23→16:24)
[2021-06-30 07:24] LABS: Albumin 2.4 g/dL (3.4-5.0); Bilirubin Direct 0.2 mg/dL (0-0.2); Bilirubin Total 0.5 mg/dL (0.2-1.0); Protein, Total 6.5 g/dL (6.4-8.2)
[2021-06-30] MEDS: FAMOTIDINE 20 MG/2 ML VIAL IV SCH ×2 (07:51→20:47)
[2021-06-30] MEDS: METFORMIN HCL 500 MG TAB PO SCH ×2 (07:52→16:24)
[2021-06-30] MEDS: RIVAROXABAN 20 MG TABLET PO SCH (07:52)
[2021-06-30] MEDS: GABAPENTIN 300 MG CAP PO SCH ×3 (07:52→20:47)
[2021-06-30] MEDS: ASPIRIN EC 81 MG TAB PO SCH (07:53)
[2021-06-30] MEDS: AMLODIPINE 10 MG TAB PO SCH (07:57)
[2021-06-30] MEDS: LOSARTAN POTASSIUM 50 MG TABLET PO SCH (07:57)
[2021-06-30] MEDS: BARICITINIB 2 MG TABLET PO SCH (07:58)
[2021-06-30] MEDS: INSULIN -REGULAR HUMAN 50 UNIT/0.5 ML ML SQ SCH ×4 (07:58→21:01)
[2021-06-30] MEDS: BUPROPION HCL XL 150 MG TAB PO SCH (07:59)
[2021-06-30] MEDS: PROMETH/COD 6.25/10MG SYRUP 5ML PO PRN ×2 (10:31→18:38)
[2021-06-30] MEDS: ZINC SULFATE 220 MG CAP PO SCH (20:47)
[2021-06-30] MEDS: ATORVASTATIN 10 MG TAB PO SCH (20:47)
[2021-06-30] MEDS: INSULIN GLARGINE 100 UNITS/ML SQ SCH (21:01)
--- NOTE | 2021-06-30 21:17 | P.PN ---
Subjective Date of Service: 06/30/21 Chief Complaint: REsp failure Subjective: Improving TALKED TO HER TODAY. SHE IS FEELING A LOT BETTER. SHE HAS NO CHEST PAIN. NO FEVER. SHE IS LOT BETTER. SHE HAS NO CHEST PAIN. SHE IS ABLE TO REDUCE OXYGEN. SHE IS ON LESSER OXYGEN NOW. IMPROVING. SHE IS LOT BETTER. NO CHEST PAIN. Physical Examination - Vital Signs Temperature: 97.5 F Blood Pressure: 100/56 Pulse: 94 Respirations: 18 Pulse Ox (%): 90 - Physical Exam General: Alert, In no apparent distress, Oriented x3 HEENT: Atraumatic, PERRLA, EOMI Neck: Supple, JVD not distended Cardiovascular: Regular rate/rhythm Gastrointestinal: Normal bowel sounds, No tenderness Musculoskeletal: No tenderness Integumentary: No rashes Neurological: Normal speech, Normal tone, Normal affect Lymphatics: No axilla or inguinal lymphadenopathy - Studies Microbiology Data (last 24 hrs): 06/25/21 10:45 Blood - Blood Aerobic Blood Culture - Final No growth in 5 days. 06/25/21 10:45 Blood - Blood Anaerobic Blood Culture - Final No growth in 5 days. 06/25/21 10:32 Blood - Blood Aerobic Blood Culture - Final No growth in 5 days. 06/25/21 10:32 Blood - Blood Anaerobic Blood Culture - Final No growth in 5 days. Medications List Reviewed: Yes Assessment And Plan - Current Problems (Diagnosis) (1) Pneumonia due to COVID-19 virus Current Visit: Yes Status: Acute Plan: IV STEORIDS OXYGEN HIGH FLOW. IVERMECTIN TWO DOSES. ORAL BARICITINIB. XARELTO PO. SUPPORTIVE CARE. DR. ZALDIVAR CONSULTED. CONTINUE MEDS. FEELS BETTER. HYPOXIA IS BETTER. CONT MEDS. DOWN TO 25 LT OXYGEN. CONTINUE MEDS. MAY NEED FEW MORE DAYS HERE. SHE IS DOWN TO 6 LT NC OXYGEN. CONTINUE MEDS. (2) Hypoxia Current Visit: Yes Status: Acute Plan: ABOVE. PROGNOSIS GUARDED. SHE REFUSED TO TAKE VACCINE BEFORE.
[2021-07-01] MEDS: METHYLPREDNISOLONE 125 MG INJ IV SCH ×3 (01:00→16:01)
[2021-07-01 04:11] LABS: Albumin 2.5 g/dL (3.4-5.0); Bilirubin Direct 0.2 mg/dL (0-0.2); Bilirubin Total 0.5 mg/dL (0.2-1.0); Protein, Total 6.4 g/dL (6.4-8.2)
[2021-07-01] MEDS: FAMOTIDINE 20 MG/2 ML VIAL IV SCH ×2 (08:07→20:51)
[2021-07-01] MEDS: GABAPENTIN 300 MG CAP PO SCH ×3 (08:07→20:52)
[2021-07-01] MEDS: METFORMIN HCL 500 MG TAB PO SCH ×2 (08:07→16:02)
[2021-07-01] MEDS: BUPROPION HCL XL 150 MG TAB PO SCH (08:07)
[2021-07-01] MEDS: BARICITINIB 2 MG TABLET PO SCH (08:07)
[2021-07-01] MEDS: LOSARTAN POTASSIUM 50 MG TABLET PO SCH (08:08)
[2021-07-01] MEDS: AMLODIPINE 10 MG TAB PO SCH (08:08)
[2021-07-01] MEDS: INSULIN -REGULAR HUMAN 50 UNIT/0.5 ML ML SQ SCH ×4 (08:08→20:46)
[2021-07-01] MEDS: ASPIRIN EC 81 MG TAB PO SCH (08:08)
[2021-07-01] MEDS: RIVAROXABAN 20 MG TABLET PO SCH (08:08)
[2021-07-01] MEDS: PROMETH/COD 6.25/10MG SYRUP 5ML PO PRN ×3 (08:18→20:52)
--- NOTE | 2021-07-01 18:00 | P.PN ---
Subjective Date of Service: 07/01/21 Chief Complaint: REsp failure TALKED TO HER TODAY. SHE IS FEELING A LOT BETTER. SHE HAS NO CHEST PAIN. NO FEVER. SHE IS LOT BETTER. SHE HAS NO CHEST PAIN. SHE IS ABLE TO REDUCE OXYGEN. SHE IS ON LESSER OXYGEN NOW. IMPROVING. SHE IS LOT BETTER. NO CHEST PAIN. STABLE NO CHANGES. [facility] PLANNERS ARE TRYING TO PULMONARY REHAB. Physical Examination - Vital Signs Temperature: 97.6 F Blood Pressure: 105/52 Pulse: 80 Respirations: 25 Pulse Ox (%): 92 - Physical Exam General: Oriented x3, Mild distress, Moderate distress, Obese HEENT: Atraumatic, PERRLA, EOMI Neck: Supple, JVD not distended Respiratory: Diminished Cardiovascular: Regular rate/rhythm, Normal S1 S2 Gastrointestinal: Normal bowel sounds, No tenderness Musculoskeletal: No tenderness Integumentary: No rashes Neurological: Normal speech, Normal tone, Normal affect Lymphatics: No axilla or inguinal lymphadenopathy - Studies Medications List Reviewed: Yes Assessment And Plan - Current Problems (Diagnosis) (1) Pneumonia due to COVID-19 virus Current Visit: Yes Status: Acute Plan: IV STEORIDS OXYGEN HIGH FLOW. IVERMECTIN TWO DOSES. ORAL BARICITINIB. XARELTO PO. SUPPORTIVE CARE. DR. ZALDIVAR CONSULTED. CONTINUE MEDS. FEELS BETTER. HYPOXIA IS BETTER. CONT MEDS. DOWN TO 25 LT OXYGEN. CONTINUE MEDS. MAY NEED FEW MORE DAYS HERE. SHE IS DOWN TO 6 LT NC OXYGEN. CONTINUE MEDS. (2) Hypoxia Current Visit: Yes Status: Acute Plan: ABOVE. PROGNOSIS GUARDED. SHE REFUSED TO TAKE VACCINE BEFORE. MAY BENEFIT BY REHAB.
[2021-07-01] MEDS: INSULIN GLARGINE 100 UNITS/ML SQ SCH (20:50)
[2021-07-01] MEDS: ZINC SULFATE 220 MG CAP PO SCH (20:51)
[2021-07-01] MEDS: ATORVASTATIN 10 MG TAB PO SCH (20:52)
[2021-07-02] MEDS: PROMETH/COD 6.25/10MG SYRUP 5ML PO PRN ×4 (00:35→20:57)
[2021-07-02 05:32] LABS: Albumin 2.6 g/dL (3.4-5.0); Bilirubin Direct 0.2 mg/dL (0-0.2); Bilirubin Total 0.6 mg/dL (0.2-1.0); Phosphorus 3.4 mg/dL (2.5-4.9); Protein, Total 6.5 g/dL (6.4-8.2)
[2021-07-02] MEDS: METFORMIN HCL 500 MG TAB PO SCH ×2 (08:01→16:00)
[2021-07-02] MEDS: BUPROPION HCL XL 150 MG TAB PO SCH (08:01)
[2021-07-02] MEDS: RIVAROXABAN 20 MG TABLET PO SCH (08:01)
[2021-07-02] MEDS: BARICITINIB 2 MG TABLET PO SCH (08:01)
[2021-07-02] MEDS: ASPIRIN EC 81 MG TAB PO SCH (08:01)
[2021-07-02] MEDS: LOSARTAN POTASSIUM 50 MG TABLET PO SCH (08:02)
[2021-07-02] MEDS: GABAPENTIN 300 MG CAP PO SCH ×3 (08:02→20:57)
[2021-07-02] MEDS: INSULIN -REGULAR HUMAN 50 UNIT/0.5 ML ML SQ SCH ×4 (08:02→20:58)
[2021-07-02] MEDS: FAMOTIDINE 20 MG/2 ML VIAL IV SCH ×2 (08:04→20:58)
--- NOTE | 2021-07-02 13:08 | P.PN ---
Subjective Date of Service: 07/02/21 Chief Complaint: REsp failure Subjective: Improving TALKED TO HER TODAY. SHE IS FEELING A LOT BETTER. SHE HAS NO CHEST PAIN. NO FEVER. SHE IS LOT BETTER. SHE HAS NO CHEST PAIN. SHE IS ABLE TO REDUCE OXYGEN. SHE IS ON LESSER OXYGEN NOW. IMPROVING. SHE IS LOT BETTER. NO CHEST PAIN. STABLE NO CHANGES. [facility]ERS ARE TRYING TO PULMONARY REHAB. GEN WEAK, I TALKED TO HER . SHE AGREES FOR LTAC OR SNF. Physical Examination - Vital Signs Temperature: 97.6 F Blood Pressure: 100/54 Pulse: 71 Respirations: 24 Pulse Ox (%): 97 - Physical Exam General: Oriented x3, Mild distress, Moderate distress, Obese HEENT: Atraumatic, PERRLA, EOMI Neck: Supple, JVD not distended Cardiovascular: Regular rate/rhythm, Normal S1 S2 Gastrointestinal: Normal bowel sounds, No tenderness Musculoskeletal: No tenderness Integumentary: No rashes Neurological: Normal speech, Normal tone, Normal affect Lymphatics: No axilla or inguinal lymphadenopathy - Studies Medications List Reviewed: Yes Assessment And Plan - Current Problems (Diagnosis) (1) Pneumonia due to COVID-19 virus Current Visit: Yes Status: Acute Plan: IV STEORIDS OXYGEN HIGH FLOW. IVERMECTIN TWO DOSES. ORAL BARICITINIB. XARELTO PO. SUPPORTIVE CARE. DR. ZALDIVAR CONSULTED. CONTINUE MEDS. FEELS BETTER. HYPOXIA IS BETTER. CONT MEDS. DOWN TO 25 LT OXYGEN. CONTINUE MEDS. MAY NEED FEW MORE DAYS HERE. SHE IS DOWN TO 6 LT NC OXYGEN. CONTINUE MEDS. RESUME MEDS. STILL ON BARICITINIB. FINISHING COURSE. (2) Hypoxia Current Visit: Yes Status: Acute Plan: ABOVE. PROGNOSIS GUARDED. SHE REFUSED TO TAKE VACCINE BEFORE. MAY BENEFIT BY REHAB.
--- NOTE | 2021-07-02 15:27 | P.PN ---
Subjective Date of Service: 07/02/21 Chief Complaint: REsp failure Doign well/ Little agiated/ On NC O2 Review of Systems Respiratory: Shortness of Breath Physical Examination - Vital Signs Temperature: 97.6 F Blood Pressure: 100/54 Pulse: 71 Respirations: 24 Pulse Ox (%): 97 - Physical Exam General: Alert, In no apparent distress, Oriented x3 - Studies Medications List Reviewed: Yes Assessment & Plan - Problems (Diagnosis) (1) Pneumonia due to COVID-19 virus Current Visit: Yes Status: Acute Plan: Doign well on NC O2/Change to Po pred/DC
[2021-07-02] MEDS: ATORVASTATIN 10 MG TAB PO SCH (20:57)
[2021-07-02] MEDS: predniSONE 20 MG TAB PO SCH (20:57)
[2021-07-02] MEDS: INSULIN GLARGINE 100 UNITS/ML SQ SCH (20:58)
[2021-07-02] MEDS: ZINC SULFATE 220 MG CAP PO SCH (20:58)
[2021-07-03 04:25] LABS: Absolute Lymphocytes (CBC) 0.7 K/uL (0.7-4.9); Basophils % 0.1 % (0-1.3); Hematocrit 34.4 % (36.0-45.0); Lymphocytes % 5.4 % (15.3-44.8); MPV 7.6 fL (7.6-11.3); RBC Red Blood Cell Count 4.43 M/uL (3.86-4.86)
[2021-07-03 04:40] LABS: ALT/SGPT 43 U/L (12-78); AST/SGOT 21 U/L (15-37); Albumin 2.5 g/dL (3.4-5.0); Alkaline Phosphatase 60 U/L (45-117); BUN Blood Urea Nitrogen 44 mg/dL (7-18); Bicarbonate 26 mmol/L (21-32); Bilirubin Direct 0.2 mg/dL (0-0.2); Bilirubin Total 0.4 mg/dL (0.2-1.0); Glucose Level 131 mg/dL (74-106); Potassium 4.8 mmol/L (3.5-5.1); Protein, Total 6.1 g/dL (6.4-8.2); Sodium Level 140 mmol/L (136-145)
[2021-07-03 04:41] LABS: C-Reactive Protein < 2.90 mg/L (<3.00)
[2021-07-03 05:18] LABS: Blood Morphology Comment NOT SEEN (NOT SEEN); Platelet Estimate INCR
[2021-07-03] MEDS: FAMOTIDINE 20 MG/2 ML VIAL IV SCH ×2 (09:44→21:30)
[2021-07-03] MEDS: RIVAROXABAN 20 MG TABLET PO SCH (09:44)
[2021-07-03] MEDS: METFORMIN HCL 500 MG TAB PO SCH ×2 (09:44→17:24)
[2021-07-03] MEDS: GABAPENTIN 300 MG CAP PO SCH ×3 (09:44→21:29)
[2021-07-03] MEDS: predniSONE 20 MG TAB PO SCH ×2 (09:44→21:30)
[2021-07-03] MEDS: ASPIRIN EC 81 MG TAB PO SCH (09:44)
[2021-07-03] MEDS: INSULIN -REGULAR HUMAN 50 UNIT/0.5 ML ML SQ SCH ×4 (09:44→21:31)
[2021-07-03] MEDS: BUPROPION HCL XL 150 MG TAB PO SCH (09:46)
[2021-07-03] MEDS: BARICITINIB 2 MG TABLET PO SCH (09:46)
--- NOTE | 2021-07-03 15:55 | P.PN ---
Subjective Date of Service: 07/03/21 Chief Complaint: REsp failure Subjective: Improving TALKED TO HER TODAY. SHE IS FEELING A LOT BETTER. SHE HAS NO CHEST PAIN. NO FEVER. SHE IS LOT BETTER. SHE HAS NO CHEST PAIN. SHE IS ABLE TO REDUCE OXYGEN. SHE IS ON LESSER OXYGEN NOW. IMPROVING. SHE IS LOT BETTER. NO CHEST PAIN. STABLE NO CHANGES. [facility]ANNERS ARE TRYING TO PULMONARY REHAB. GEN WEAK, I TALKED TO HER . SHE AGREES FOR LTAC OR SNF. SHE IS WALKING AROUND SHE DOES NOT WANT TO GO TO FACILITY BUT WANTS TO GO HOME. Physical Examination - Vital Signs Temperature: 96.9 F Blood Pressure: 116/61 Pulse: 82 Respirations: 30 Pulse Ox (%): 96 - Physical Exam General: Oriented x3, Mild distress, Obese HEENT: Atraumatic, PERRLA, EOMI Neck: Supple, JVD not distended Respiratory: Clear to auscultation bilaterally, Normal air movement Cardiovascular: Regular rate/rhythm, Normal S1 S2 Gastrointestinal: Normal bowel sounds, No tenderness Musculoskeletal: No tenderness Integumentary: No rashes Neurological: Normal speech, Normal tone, Normal affect Lymphatics: No axilla or inguinal lymphadenopathy - Studies Medications List Reviewed: Yes Assessment And Plan - Current Problems (Diagnosis) (1) Pneumonia due to COVID-19 virus Current Visit: Yes Status: Acute Plan: IV STEORIDS OXYGEN HIGH FLOW. IVERMECTIN TWO DOSES. ORAL BARICITINIB. XARELTO PO. SUPPORTIVE CARE. DR. ZALDIVAR CONSULTED. CONTINUE MEDS. FEELS BETTER. HYPOXIA IS BETTER. CONT MEDS. DOWN TO 25 LT OXYGEN. CONTINUE MEDS. MAY NEED FEW MORE DAYS HERE. SHE IS DOWN TO 6 LT NC OXYGEN. CONTINUE MEDS. RESUME MEDS. STILL ON BARICITINIB. FINISHING COURSE. SHE IS DOWN TO 4 LT OXYGEN NOW. (2) Hypoxia Current Visit: Yes Status: Acute Plan: ABOVE. PROGNOSIS GUARDED. SHE REFUSED TO TAKE VACCINE BEFORE. MAY BENEFIT BY REHAB.
[2021-07-03] MEDS: ZINC SULFATE 220 MG CAP PO SCH (21:29)
[2021-07-03] MEDS: ATORVASTATIN 10 MG TAB PO SCH (21:30)
[2021-07-03] MEDS: INSULIN GLARGINE 100 UNITS/ML SQ SCH (21:32)
[2021-07-04 04:16] LABS: Absolute Lymphocytes (CBC) 0.4 K/uL (0.7-4.9); Basophils % 0.5 % (0-1.3); Hematocrit 35.4 % (36.0-45.0); Lymphocytes % 3.9 % (15.3-44.8); MPV 7.8 fL (7.6-11.3); RBC Red Blood Cell Count 4.54 M/uL (3.86-4.86)
[2021-07-04 04:40] LABS: ALT/SGPT 44 U/L (12-78); AST/SGOT 15 U/L (15-37); Albumin 2.5 g/dL (3.4-5.0); Alkaline Phosphatase 65 U/L (45-117); BUN Blood Urea Nitrogen 30 mg/dL (7-18); Bicarbonate 27 mmol/L (21-32); Bilirubin Direct 0.2 mg/dL (0-0.2); Bilirubin Total 0.5 mg/dL (0.2-1.0); Glucose Level 194 mg/dL (74-106); Potassium 4.9 mmol/L (3.5-5.1); Protein, Total 6.1 g/dL (6.4-8.2); Sodium Level 138 mmol/L (136-145)
[2021-07-04 04:46] LABS: C-Reactive Protein < 2.90 mg/L (<3.00)
[2021-07-04 08:40] VITALS: BP 112/64; TEMP 98
[2021-07-04] MEDS: ASPIRIN EC 81 MG TAB PO SCH (08:52)
[2021-07-04] MEDS: GABAPENTIN 300 MG CAP PO SCH (08:52)
[2021-07-04] MEDS: METFORMIN HCL 500 MG TAB PO SCH (08:52)
[2021-07-04] MEDS: RIVAROXABAN 20 MG TABLET PO SCH (08:52)
[2021-07-04] MEDS: FAMOTIDINE 20 MG/2 ML VIAL IV SCH (08:53)
[2021-07-04] MEDS: INSULIN -REGULAR HUMAN 50 UNIT/0.5 ML ML SQ SCH (08:53)
[2021-07-04] MEDS: BARICITINIB 2 MG TABLET PO SCH (08:57)
[2021-07-04] MEDS: predniSONE 20 MG TAB PO SCH (08:57)
[2021-07-04] MEDS: BUPROPION HCL XL 150 MG TAB PO SCH (08:57)
--- NOTE | 2021-07-04 09:36 | P.DS ---
Admission Date: 06/25/21 Discharge Date: 07/04/21 Disposition: ROUTINE DISCHARGE Discharge Condition: SERIOUS Reason for Admission: REsp failure - Problems (1) Pneumonia due to COVID-19 virus Current Visit: Yes Status: Acute (2) Hypoxia Current Visit: Yes Status: Acute Brief History of Present Illness: REGINALD HAD A TELEHEALTH VISIT WITH ME ON FOR COUGH, CONGESTION, YELLOW SPUTUM. I ASKED HER TO GET COVID TEST AND GAVE AUGMENTIN FOR SINUSITIS. SHE CALLED AGAIN YESTERDAY SAYING THAT SHE IS POSTIIVE FOR COVID AND HAS LOW OXYGEN SAT DWON TO 77%. I ASKED HER TO GET TO ER SHE WAS GIVEN STEROIDS IV, IVERMECTIN AND ORAL MONOCOLONAL ABD. SHE IS NOW ON HIGH FLOW OXYGEN. Hospital Course: REGINALD CAME WITH SEVERE DYSPNEA, HYPOXIA, COVID PNEUMONIA AND WITH BARICITINIB, STEROIDS, HIGH FLOW OXYGEN SHE HAS IMPROVED WELL. SHE IS DOWN TO 3 LT NC. SHE HAS ABOUT 10 DAYS OF BARICITINIB AND SHE IS CLINICALLY STABLE TO GO HOME PER AND DR. ZALDIVAR. SHE IS GIVEN INSULIN GLUCOSE STAYS HIGH. SHE WILL FU WITH ME AND DR. ZALDIVAR. SHE ALSO HAS OXYGEN AT HOME, STEROIDS AND XARELTO. Vital Signs/Physical Exam: Temp Pulse Resp BP Pulse Ox 98 F 88 22 H 112/64 91 07/04/21 08:00 07/04/21 08:00 07/04/21 08:00 07/04/21 08:00 07/04/21 08:00 Laboratory Data at Discharge: WBC 11.30 K/uL (4.3-10.9) H 07/04/21 03:52 Hgb 11.4 g/dL (12.0-15.0) L 07/04/21 03:52 Hct 35.4 % (36.0-45.0) L 07/04/21 03:52 Plt Count 452 K/uL (152-406) H 07/04/21 03:52 PT 13.7 SECONDS (9.5-12.5) H 06/25/21 11:18 INR 1.19 06/25/21 11:18 Sodium 138 mmol/L (136-145) 07/04/21 03:52 Potassium 4.9 mmol/L (3.5-5.1) 07/04/21 03:52 BUN 30 mg/dL (7-18) H 07/04/21 03:52 Creatinine 0.77 mg/dL (0.55-1.3) 07/04/21 03:52 Glucose 194 mg/dL (74-106) H 07/04/21 03:52 Phosphorus 3.4 mg/dL (2.5-4.9) 07/02/21 04:23 Magnesium 2.0 mg/dL (1.8-2.4) 06/28/21 07:45 Total Bilirubin 0.5 mg/dL (0.2-1.0) 07/04/21 03:52 AST 15 U/L (15-37) 07/04/21 03:52 ALT 44 U/L (12-78) 07/04/21 03:52 Alkaline Phosphatase 65 U/L (45-117) 07/04/21 03:52 Triglycerides 70 mg/dL (<150) 06/26/21 04:45 Cholesterol 92 mg/dL (<200) 06/26/21 04:45 HDL Cholesterol 44 mg/dL (40-60) 06/26/21 04:45 Cholesterol/HDL Ratio 2.09 06/26/21 04:45 Home Medications: Aspirin [Aspirin EC 81 MG] 1 tab PO DAILY 06/26/21 Bupropion HCl [Wellbutrin Xl] 1 tab PO DAILY 06/26/21 Gabapentin 1 tab PO TID 06/26/21 Metformin HCl 1 tab PO BID 06/26/21 Simvastatin 1 tab PO BEDTIME 06/26/21 Zinc 1 tab PO BEDTIME 06/26/21 predniSONE [Prednisone*] 20 mg PO BID tab 07/04/21 Followup: Bubba Velez MD [Primary Care Provider] -
[2021-07-04 09:58] VITALS: O2SAT 91
== END 2021-07-04 10:56 | disposition home or self-care (01) | DRG 177 ==
LOC: ER 09:48 → ERHOLD 13:53 → 4TH 06-27 21:37
PROVIDERS: ADMIT Internal Medicine; ATTEND Internal Medicine
PROC: 5A09557 Assistance with Respiratory Ventilation, Greater than 96 Consecutive Hours, Continuous Positive Airway Pressure (ICD-10-PCS; principal; 2021-06-25)
DX: U07.1 COVID-19 (principal); J12.82 Pneumonia due to coronavirus disease 2019; E11.9 Type 2 diabetes mellitus without complications; E78.5 Hyperlipidemia, unspecified; I10 Essential (primary) hypertension; R09.02 Hypoxemia; Z79.899 Other long term (current) drug therapy; Z79.82 Long term (current) use of aspirin; Z79.84 Long term (current) use of oral hypoglycemic drugs; Z88.8 Allergy status to other drugs, medicaments and biological substances
CPT/HCPCS: 36415; 71045; 71275; 80048; 80061; 80076; 80202; 82728; 82805; 82947; 83605; 83735; 83880; 84100; 84145; 84484; 85025; 85379; 85610; 86140; 87040; 93005; 94002; 94003; 94760; 96361; 96365; 96366; 96375; 97112; 97116; 97161; 99291; 99292; J1650; J1815; J2405; J2920; J2930; J3475; J7030; J7512; Q9967

== ENCOUNTER 2021-07-20 10:46 | Emergency (ER) | payer OTHER ==
--- OUTSIDE RECORDS SUMMARY | 2021-07-20 10:50 | XMS REPORT | Continuity of Care Document ---
:[address] [facility] t Address [address] [place] [address] Care Team Providers Name Role Phone Estefany Doty MD Primary Care Physician Alfreda KAUFMAN, Aurelio Attending Clinician Unavailable Problems Condition Condition Condition Status Onset Resolution Last Treating Co mments Source Name Details Category Date Date Treatment Clinician Date Neuropathy Neuropathy Disease Active M ethodi 01-07 00:00: Hospita 00 l Osteoarthr Osteoarthr Disease Active M ethodi itis itis 01-07 00:00: Hospita 00 l Type 2 Type 2 Disease Active Methodi diabetes diabetes 01-07 mellitus mellitus 00:00: Hospit a 00 l HLD HLD Disease Active Methodi (hyperlipi (hyperlipi 01-07 demia) demia) 00:00: Hospita 00 l Hypertensi Hypertensi Disease Active M ethodi on on 01-07 00:00: Hospita 00 l Episodic Episodic Disease Active Overview: Me thodi mood mood 2- Formattin st disorder disorder 00:00: g of this Hos margareth 00 note l might be different from the original. Mood disorder Allergies, Adverse Reactions, Alerts Allergy Allergy Status Severity Reaction(s) Onset Inactive Treating Comm ents Source Name Type Date Date Clinician Scotty Propensi Active Methodi Inhibito ty to 08-04 rs adverse 00:00: Hospita reaction 00 l s to drug Lisinopr Propensi Active Method i il ty to 08-04 st adverse 00:00: Hospita reaction 00 l s to drug Social History Social Habit Start Date Stop Date Quantity Comments Source Alcohol intake 2017-01-24 2017-01-24 Current [facility] 00:00:00 00:00:00 non-drinker of Hospital alcohol (finding) Sex Ass[birth year] [facility] 00:[facility] 00:[facility]:00 Hospital Smoking Status Start Date Stop Date Source Never smoker [facility] Medications Ordered Filled Start Stop Current Ordering Indication Dosage Frequency Signature Comments Components Source Medication Medication Date Date Medication? Clinician (SIG) Name Name Bactrim DS Bactrim DS 2020-0 2020- No Yao [address] [facility] Pyridium Pyridium 2020-0 2020- No Yao [address] [facility] Wellbutrin Wellbutrin 2019-0 Yes Yao [address] [facility] XL XL 07-03 [facility] 00:[facility]: morning [facility] 00 l [facility] Magnesium Magnesium 2020-0 2020- No Yao [address] [facility] 07[facility] - 00:[facility] 00:[facility] meal [facility] 00 :00 Out[facility] ent Clinics Sure Sure 2018-0 Yes Yao [address] [facility] [address] Comfort Pen Comfort Pen 07-04 [facility] [place] [facility] 00 [facility] simvastatin Yes TAKE 1 Meth dany (ZOCOR) 10 6-[address] MG tablet 00:00: DAILY Hospita 00 l glimepiride Yes TAKE 1 Meth dany (AMARYL) 4 5-[address] MG tablet 00:00: DAILY Hospita 00 l JARDIANCE Yes TAKE 1 Method i 25 mg 5-[address] tablet 00:00: DAILY Hospita 00 l buPROPion Yes [id number] TAKE 1 M ethodi XL 4-[address] (WELLBUTRIN 00:00: DAILY Hospi ta XL) 150 MG 00 l 24 hr tablet nystatin Yes APPLY Methodi (MYCOSTATIN 4-[address] ) 100,000 00:00: TWICE A Hospi ta unit/gram 00 DAY l cream benzonatate Yes 100mg [id number] Take 1 Methodi (TESSALON) 3-[id number] 100 MG 00:00: 3D (100 mg Hospita capsule 00 total) by l mouth 3 (three) times a day as needed for cough. BD INSULIN Yes USE Metho di PEN NEEDLE 02-[address] [facility]F MINI 31 00:00: Hospita gauge x 00 l 02/10" needle valsartan Yes TAKE 1 Method i (DIOVAN) 3-[address] 320 MG 00:00: DAILY Hospita tablet 00 l metFORMIN Yes TAKE 1 Method i (GLUCOPHAGE 3-[address] ) 1,000 mg 00:00: TWICE A Hosp patti tablet 00 DAY l FREESTYLE Yes USE TO Method i LITE STRIPS [address] strip test 00:00: A DAY Hospit a strips 00 l cetirizine Yes 10mg QD Take 10 mg M ethodi (ZyrTEC) 10 2-[address] MG tablet 16:01: daily. Hospit a 19 l multivitami Yes 1{tbl} QD Take 1 Me thodi n 2-27 tablet by (THERAGRAN) 16:00: mouth Hospi ta tablet 22 daily. l CYANOCOBALA Yes 1{tbl} QD Take 1 Me thodi MIN, 2-27 tablet by VITAMIN 16:00: mouth Hospita B-12, 22 daily. l (VITAMIN B-12 ORAL) LACTOBACILL Yes 1{capsu QD Take 1 M ethodi US 2-27 le} capsule by ACIDOPHILUS 16:00: mouth Hospi ta (PROBIOTIC 22 daily. l ORAL) fexofenadin Yes 1{tbl} QD Take 1 Me thodi e-pseudoepH 2-[address] EDrine 15:59: mouth Hospita (DAYLIN-D 07 daily. l 24) 180-240 mg per 24 hr tablet naproxen Yes 250mg Q.5D Take 250 Meth dany (NAPROSYN) 2-[address] 250 MG 15:59: mouth 2 Hospita tablet 07 (two) l times a day with meals. traMADol Yes 50mg Q6H Take 50 mg Met hodi (ULTRAM) 50 2-[address] mg tablet 15:34: every 6 Hospi ta 09 (six) l hours as needed for moderate pain. PROAIR HFA Yes USE 2 Method i 90 2-[address] mcg/actuati 00:00: S EVERY 6 H ospita on inhaler 00 HOURS l NEEDED FOR WHEEZING LANTUS 2015-11 Yes INJECT 60 Method i SOLOSTAR 1-[address] 100 unit/mL 00:00: UNDER THE H ospita (3 mL) 00 SKIN EVERY l insulin pen EVENING amLODIPine 2015-11 Yes TAKE 1 Metho di (NORVASC) 1-[address] 10 MG 00:00: DAILY Hospita tablet 00 l pen needle, Yes [id number] Use once Methodi diabetic 31 9-[address] gauge x 00:00: lantus pen Hosp patti 16" 00 l needle lancets Yes [id number] BID Metho di misc 9-[address] 00:00: Hospita 00 l FREESTYLE Yes USE Method i FREEDOM 1-[address] LITE kit 00:00: TWICE A Hospit a DAY. l Lantus Lantus Yes Yao inject [address] SoloStar SoloStar [facility] Gabapentin Gabapentin Yes Yao [address] [facility] [facility] Simvastatin Simvastatin Yes Yao [address] [facility] - evening [facility] Amlodipine Amlodipine Yes Yao [address] Besylate Besylate [facility] Trulicity Trulicity Yes Yao as [facility] Aspirin Aspirin Yes Yao [address] Adult Adult [facility] Gabapentin Gabapentin Yes Yao TAKE [address] [facility] [facility] CAP[facility]LE [facility] - TWICE A [facility] DAY l [facility] Metformin Metformin Yes Yao [address] HCl HCl [facility] - meal [facility] Zyrtec Zyrtec Yes Yao 1 tablet [facility] Allergy Allergy [facility] Valsartan Valsartan Yes Yao [address] [facility] Immunizations Ordered Filled Immunization Date Status Comments Sour e Immunization Name Name Afluria single dose Afluria single dose 2019-08-[address] [facility]00 [facility] Influenza, 2015-08-27 Completed [facility] 00:00:00 Hospital Tdap 2011-11-28 Completed [facility] 00:[facility]:00 Hospital Procedures This patient has no known procedures. Plan of Care Planned Activity Planned Date Details Comments Source Future Scheduled Test COVID-19 VACCINE (1) [facility] [code = COVID-19 VACCINE (1)] Future Scheduled Test Screening for malignant [facility] neoplasm of cervix (procedure) [code = 835884243] Future Scheduled Test COLONOSCOPY SCREENING [facility] [code = COLONOSCOPY SCREENING] Future Scheduled Test SHINGLES VACCINES (#1) [facility] [code = SHINGLES VACCINES (#1)] Future Scheduled Test BREAST CANCER SCREENING [facility] [code = BREAST CANCER SCREENING] Future Scheduled Test 65+ PNEUMOCOCCAL Me [facility] VACCINE (1 of 1 - PPSV23) [code = 65+ PNEUMOCOCCAL VACCINE (1 of 1 - PPSV23)] Future Scheduled Test INFLUENZA VACCINE [code [facility] = INFLUENZA VACCINE] Encounters Start End Encounter Admission Attending Care Care Encounter Source Date/Time Date/Time Type Type Clinicians Facility Department ID 2021-04-10 2021-04-10 Outpatient [facility] [id number] 2021-01-21 2021-01-21 Outpatient [facility] [id number] [facility] 2021-01-19 2021-01-19 Outpatient [facility] [id number] [facility] 2021-01-05 2021-01-05 [facility] [id number] [facility] 2021-01-05 2021-01-05 Out[facility] [id number] [facility] 2020-10-06 2020-10-06 [facility] [id number] [facility] 2020-09-16 2020-09-16 Out[facility] [id number] [facility] 2020-07-28 2020-07-28 [facility] [id number] 10:15:00 10:15:00 [place] Score [employer] Luke s - Drive [facility] Family Medicine l Medicine Outpati ent Clinics 2020-07-03 2020-07-03 [facility] [id number] 13:15:00 13:15:00 [place] beModel s - Drive [facility] Medicine l Medicine Outpati ent Clinics 2020-06-03 2020-06-03 [facility] [id number] 08:10:00 08:10:00 [place] beModel s - Drive [facility] Family Medicine l Medicine Outpati ent Clinics 2020-04-02 2020-04-02 [facility] [id number] 14:30:00 14:30:00 [place] beModel s - Drive [facility] Family Medicine l Medicine Outpati ent Clinics 2020-03-19 2020-03-19 [facility] [id number] 16:00:00 16:00:00 [place] beModel s - Drive [facility] Medicine l Medicine Outpati ent Clinics 2020-03-18 2020-03-18 [facility] [id number] 10:06:00 10:06:00 [place] beModel s - Drive [facility] Medicine l Medicine Outpati ent Clinics 2020-02-19 2020-02-19 [facility] [id number] 10:31:00 10:31:00 [place] Score [employer] Luke s - Drive [facility] Medicine Outpati ent Clinics 2020-02-14 2020-02-14 [facility] [id number] 11:00:00 11:00:00 [facility] Medicine Outpati ent Clinics 2020-02-14 2020-02-14 [facility] [id number] 09:52:00 09:52:00 [facility] Medicine Outpati ent Clinics 2020-01-25 2020-01-25 [facility] [id number] 10[facility]49:00 10:49:00 t [place] [employer] - is now [employer] Mo-DV s - Drive [facility] Medicine Outpati ent Clinics 2020-01-12 2020-01-12 [facility] [id number] 00:00:00 00:00:00 Deandra Thompson [id number] Aurelio [place] [id number] [facility] [id number] [address] 2019-12-25 2019-12-25 [facility] [id number] 09:30:00 09:30:00 corrine [facility]aw [facility] 2019-11-30 2019-11-30 [facility] [id number] 08:30:00 08:30:00 [place] [employer] - is now [employer] LuMo-DV s - Drive [facility] Medicine Outpati ent Clinics 2019-11-16 2019-11-16 [facility] [id number] 15:35:00 15:35:00 [place] [employer] - is now [employer] LuMo-DV s - Drive [facility] Medicine Outpati ent Clinics 2019-11-01 2019-11-01 [facility] [id number] 10:00:00 10:00:00 t [place] Score [employer] Lu[employer]-DV s - Drive [facility] Medicine Outpati ent Clinics 2019-10-31 2019-10-31 [facility] [id number] 09:59:00 09:59:00 t [employer] - Score The Board [facility] Outpati ent Clinics 2019-08-28 2019-08-28 [facility] [id number] 09:51:00 09:51:00 t [employer] [facility] Outpati ent Clinics 2019-08-27 2019-08-27 [facility] [id number] 09:46:00 09:46:00 t [employer] - Score The Board [facility] Outpati ent Clinics 2019-08-22 2019-08-22 [facility] [id number] 08:15:00 08:15:00 t [employer] [facility] Results This patient has no known results.
[2021-07-20] MEDS ORDERED: LIDOCAINE 1% MPF 5 ML VIAL ONE (15:04)
--- NOTE | 2021-07-20 15:16 | ER ---
Nurse's Notes [facility] Name: Jazlyn Granados Age: 65 yrs Sex: Female : 1955 Arrival Date: 07/20/2021 Time: 10:48 Bed DX1 Private MD: Bubba Velez V Diagnosis: Cutaneous abscess of hand Presentation: 07/20 11:39 Chief complaint: Patient states: Swelling and redness to R hand that began 8 days ago. ss Pt reports it is where she had her peripheral IV from 2 weeks ago when she was admitted for COVID. Coronavirus screen: Client denies travel out of the [place] in the last 14 days. Ebola Screen: Patient denies exposure to infectious person. Patient denies travel to an Ebola-affected area in the 21 days before illness onset. Initial Sepsis Screen: Does the patient meet any 2 criteria? No. Patient's initial sepsis screen is negative. Does the patient have a suspected source of infection? No. Patient's initial sepsis screen is negative. Risk Assessment: Do you want to hurt yourself or someone else? Patient reports no desire to harm self or others. Onset of symptoms was July 12, 2021. 11:39 Method Of Arrival: Wheelchair 11:39 Acuity: KAELYN 3 ss Historical: - Allergies: 11:41 Lisinopril; ss - PMHx: 11:41 Anxiety; Depression; Diabetes - IDDM; Hyperlipidemia; Hypertension; ss - Immunization history:: Client reports having NOT received the Covid vaccine. - Social history:: Smoking status: Patient denies any tobacco usage or history of. Screenin:45 Abuse screen: Denies threats or abuse. Denies injuries from another. Nutritional ss screening: No deficits noted. Tuberculosis screening: Never had TB. Fall Risk None identified. Assessment: 13:12 General: Appears in no apparent distress. comfortable, Behavior is calm, cooperative, ss Denies fever, feeling ill, fatigue, chills. Pain: Complains of pain in dorsal aspect of proximal phalanx of right ring finger and dorsum of right hand. Neuro: Level of Consciousness is awake, alert, obeys commands, Oriented to person, place, time, situation, Engraving Patternmaker are equal bilaterally. Cardiovascular: Pulses are palpable in right radial artery and left radial artery. Respiratory: Airway is patent Respiratory effort is even, unlabored, Respiratory pattern is regular, symmetrical. GI: Patient currently denies diarrhea, nausea, vomiting. EENT: Oral mucosa is moist. Derm: Skin is intact, is healthy with good turgor, Skin is dry, Skin is pink, warm \T\ dry. normal. Musculoskeletal: Circulation, motion, and sensation intact. Range of motion: intact in all extremities, Swelling present in dorsal aspect of proximal phalanx of right ring finger and dorsum of right hand. 14:45 Reassessment: Patient appears in no apparent distress at this time. Patient and/or ss family updated on plan of care and expected duration. Pain level reassessed. Patient is alert, oriented x 3, equal unlabored respirations, skin warm/dry/pink. Vital Signs: 11:39 BP 148 / 74; Pulse 92; Resp 18; Temp 98.2(TE); Pulse Ox 97% on 3 lpm NC; Weight 74.84 ss kg; Height 4 ft. 11 in. (149.86 cm); Pain 3/10; 11:39 Body Mass Index 33.33 (74.84 kg, 149.86 cm) ED Course: 10:48 Patient arrived in ED. mr 10:48 Bubba Velez MD is Private Physician. mr 11:41 Triage completed. ss 11:41 Arm band placed on right wrist. 13:10 UPPER EXTREMITY VENOUS UNILATE In Process Unspecified. EDMS 13:13 Andrew Vilchis PA is PHCP. jr8 13:13 Denton Mix MD is Attending Physician. jr8 14:45 Patient has correct armband on for positive identification. Bed in low position. Call ss light in reach. 15:15 Biju Perry MD is Referral Physician. jr8 15:15 Assist provider with I \T\ D: of an abscess on right hand Set up I\T\D tray. Performed by Andrew DUMONT Dressing with 4X4s, kerlix Patient tolerated well. 15:30 Lena Borrero RN is Primary Nurse. 15:30 Patient did not have IV access during this emergency room visit. ss Administered Medications: 15:00 Drug: Lidocaine (1 %) 5 ml {Note: administered by JULIA Morales.} Volume: 5 ml; Route: ss Infiltration; Outcome: 15:15 Discharge ordered by MD. ballard 15:30 Discharged to home via wheelchair, with family. 15:30 Condition: good 15:30 Discharge instructions given to patient, Instructed on discharge instructions, follow up and referral plans. medication usage, Demonstrated understanding of instructions, follow-up care, medications, Prescriptions given X 1. 15:32 Patient left the ED. Signatures: Dispatcher [employer] [facility] Nahomy Lowe Lena Borrero RN RN Andrew Vilchis PA PA jr8 Corrections: (The following items were deleted from the chart) 15:31 15:00 Lidocaine (1 %) 5 ml 5 ml Infiltration 5 ml [facility] 18:57 15:30 No provider procedures requiring assistance completed. ss
--- NOTE | 2021-07-20 15:16 | EDPHYS ---
Physician Documentation [facility] Name: Jazlyn Granados Age: 65 yrs Sex: Female : 1955 Arrival Date: 07/20/2021 Time: 10:48 Bed DX1 Private MD: Bubba Velez V ED Physician Denton Mix HPI: 07/20 15:32 This 65 yrs old Female presents to ER via Wheelchair with complaints of Hand jr8 Swelling. 15:32 The patient or guardian reports pain, swelling, tenderness. The complaints affect the jr8 dorsum right hand. Onset: The symptoms/episode began/occurred gradually. Modifying factors: The symptoms are alleviated by nothing, the symptoms are aggravated by movement. Associated signs and symptoms: The patient has no apparent associated signs or symptoms. Severity of symptoms: At their worst the symptoms were moderate, in the emergency department the symptoms are unchanged. The patient has not experienced similar symptoms in the past. The patient has been recently seen by a physician:. This is a 65-year-old female patient that presented to the emergency room for swelling of the dorsal right hand. Stated that she recently had an IV in that hand for hospitalization. After being discharged started to notice swelling around the region that had become worse.. Historical: - Allergies: 11:41 Lisinopril; ss - PMHx: 11:41 Anxiety; Depression; Diabetes - IDDM; Hyperlipidemia; Hypertension; ss - Immunization history:: Client reports having NOT received the Covid vaccine. - Social history:: Smoking status: Patient denies any tobacco usage or history of. ROS: 15:32 Eyes: Negative for injury, pain, redness, and discharge, ENT: Negative for injury, jr8 pain, and discharge, Neck: Negative for injury, pain, and swelling, Cardiovascular: Negative for chest pain, palpitations, and edema, Respiratory: Negative for shortness of breath, cough, wheezing, and pleuritic chest pain, Abdomen/GI: Negative for abdominal pain, nausea, vomiting, diarrhea, and constipation, Back: Negative for injury and pain, Neuro: Negative for headache, weakness, numbness, tingling, and seizure. 15:32 MS/extremity: Positive for erythema, pain, swelling, tenderness, of the Dorsal right hand. Exam: 15:32 Constitutional: This is a well developed, well nourished patient who is awake, alert, jr8 and in no acute distress. Cardiovascular: Regular rate and rhythm with a normal S1 and S2. No gallops, murmurs, or rubs. Normal PMI, no JVD. No pulse deficits. Respiratory: Lungs have equal breath sounds bilaterally, clear to auscultation and percussion. No rales, rhonchi or wheezes noted. No increased work of breathing, no retractions or nasal flaring. MS/ Extremity: Pulses equal, no cyanosis. Neurovascular intact. Full, normal range of motion. Neuro: Awake and alert, GCS 15, oriented to person, place, time, and situation. Cranial nerves II-XII grossly intact. Motor strength 5/5 in all extremities. Sensory grossly intact. 15:32 Skin: Patient has approximately 5 cm area of swelling of the dorsal right hand over the fourth metacarpal region. Fluctuant and painful to palpation. No surrounding cellulitis.. Vital Signs: 11:39 BP 148 / 74; Pulse 92; Resp 18; Temp 98.2(TE); Pulse Ox 97% on 3 lpm NC; Weight 74.84 ss kg; Height 4 ft. 11 in. (149.86 cm); Pain 3/10; 11:39 Body Mass Index 33.33 (74.84 kg, 149.86 cm) ss Procedures: 15:13 I \T\ D: Incision and drainage was performed for an abscess of the right dorsal hand jr8 Prepped with Betadine, Anesthetized with 3 ml's 1% Lidocaine. Incised with #11 blade. Drained moderate amount purulent fluid. bloody fluid. Loculations removed. Abscess cavity explored. Packed with iodoform gauze, Dressing: sterile 4x4 gauze, the patient tolerated the procedure well. MDM: 13:13 Patient medically screened. jr8 15:13 Data reviewed: vital signs, nurses notes, radiologic studies, ultrasound, and as a jr8 result, I will discharge patient. Data interpreted: Pulse oximetry: on room air is 97 %. Interpretation: normal. Counseling: I had a detailed discussion with the patient and/or guardian regarding: the historical points, exam findings, and any diagnostic results supporting the discharge/admit diagnosis, radiology results, the need for outpatient follow up, a hand specialist, to return to the emergency department if symptoms worsen or persist or if there are any questions or concerns that arise at home. 15:13 ED course: Discussed with patient that she needs to follow-up with hand specialist in jr8 the next 48 hours if possible. We will give her referral to Dr. Perry. In between now and then needs to start antibiotics. If she cannot get into him in the next 48 hours needs to come back for reevaluation and repacking of her hand.. 07/20 11:56 Order name: UPPER EXTREMITY VENOUS UNILATE EDND 07/20 15:31 Order name: I\T\D Setup; Complete Time: 15:31 ss Administered Medications: 15:00 Drug: Lidocaine (1 %) 5 ml {Note: administered by PA. Andrew} Volume: 5 ml; Route: ss Infiltration; Disposition: 17:29 Co-signature as Attending Physician, Denton Mix MD I agree with the assessment and rn plan of care. Attestation: The patient's history, exam findings, diagnostics, and a summary of any interventions or procedures was reviewed in detail with Andrew DUMONT. Disposition Summary: 07/20/21 15:15 Discharge Ordered Location: Home jr8 Problem: new jr8 Symptoms: have improved jr8 Condition: Stable jr8 Diagnosis - Cutaneous abscess of hand jr8 Followup: jr8 - With: Biju Perry MD - When: 48 Hours - Reason: Wound Recheck, Recheck today's complaints, Continuance of care, Re-evaluation by your physician Discharge Instructions: - Discharge Summary Sheet jr8 - Skin Abscess jr8 Forms: - Medication Reconciliation Form jr8 - Thank You Letter jr8 - Antibiotic Education jr8 - Prescription Opioid Use jr8 Prescriptions: - Bactrim DS 800-160 mg Oral Tablet - take 1 tablet by ORAL route every 12 hours for 7 days; 14 tablet; Refills: 0, jr8 Product Selection Permitted Signatures: Dispatcher [employer] EDND Denton Mix MD MD rn Smirch, Shelby, RN RN ss Roszak, Josh, PA PA jr8 Corrections: (The following items were deleted from the chart) 11:56 11:52 Extremity Venous Uni Ltd+[email or web address] ordered. EDND EDND
[2021-07-20 15:36] VITALS: BP 148/74; TEMP 98.2; O2SAT 97
--- NOTE | 2021-07-21 07:52 | RAD REPORT ---
EXAM DESCRIPTION: US - UPPER EXTREMITY VENOUS UNILATE - 07/20/2021 1:09 pm CLINICAL HISTORY: Right arm pain and swelling Imaging system malfunction precluded earlier dictation. Findings were discussed via telephone with eugene e referring clinician. COMPARISON: None. TECHNIQUE: Real-time sonographic evaluation of the right upper extremity deep venous systems was per formed. FINDINGS: Normal compressibility, flow augmentation, phasic flow and spontaneous flow are identified in the right upper extremity deep venous system. No intraluminal filling defects seen. Internal jugu lar and subclavian veins are normal as well. At the right hand area of concern there is a 4.5 x 2.5 x 2.0 centimeter heterogeneous hypoechoic focu s in the soft tissues. Presumptive diagnosis is abscess. Old hematoma is possible. IMPRESSION: No DVT in the right upper extremity. At the right hand area of concern there is a 4.5 x 2.5 x 2.0 centimeter heterogeneous hypoechoic focu s in the soft tissues. Presumptive diagnosis is abscess. Old hematoma is possible.
== END 2021-07-20 15:32 | disposition home or self-care (01) ==
LOC: ER 10:46
PROC: 0J9J0ZZ Drainage of Right Hand Subcutaneous Tissue and Fascia, Open Approach (ICD-10-PCS; principal; 2021-07-20)
DX: L02.511 Cutaneous abscess of right hand (principal); I10 Essential (primary) hypertension; Z88.8 Allergy status to other drugs, medicaments and biological substances
CPT/HCPCS: 93971; 99284

== ENCOUNTER 2021-07-22 08:18 | Emergency (ER) | payer OTHER ==
--- OUTSIDE RECORDS SUMMARY | 2021-07-22 08:21 | XMS REPORT | Continuity of Care Document ---
:1955 Author Organization [facility] t Address [address] [place] [address] Care Team Providers Name Role Phone Estefany [...] Comments Source Alcohol intake 2017-01-24 2017-01-24 Current [facility] 00:00:00 00:00:00 non-drinker of Hospital alcohol (finding) Sex Ass[birth year] [facility] 00:[facility] 00:00:00 Hospital Smoking Status Start Date Stop Date Source Never smoker [facility] Medications Ordered Filled Start Stop Current Ordering Indication Dosage Frequency Signature Comments Components Source Medication Medication Date Date Medication? Clinician (SIG) Name Name Bactrim DS Bactrim DS 2020-0 2020- No Yao [address] [facility] Pyridium Pyridium 2020-0 2020- No Yao [address] [facility] Wellbutrin Wellbutrin 2019-0 Yes Yao [address] [facility] XL XL 07-03 [facility] 00:[facility]: morning [facility] 00 [facility] Magnesium Magnesium 2020-0 2020- No Yao [address] [facility] 07[facility]02 [facility] - 00:[facility]: 00:[facility] meal [facility] 00 [facility] Clinics Sure Sure 2018-0 Yes Yao [address] [facility] Comfort Pen Comfort Pen 07-04 [facility]: [facility] 00 [facility] simvastatin Yes TAKE 1 Meth dany (ZOCOR) 10 6-[address] MG tablet 00:00: DAILY Hospita 00 l simvastatin Yes TAKE 1 Meth dany (ZOCOR) 10 6-[address] MG tablet 00:00: DAILY Hospita l glimepiride Yes TAKE 1 Meth dany (AMARYL) 4 5-[address] MG tablet 00:00: DAILY Hospita 00 l glimepiride Yes TAKE 1 Meth dany (AMARYL) 4 5-[address] MG tablet 00:00: DAILY Hospita 00 l JARDIANCE Yes TAKE 1 Method i 25 mg 5-[address] tablet 00:00: DAILY Hospita 00 l JARDIANCE Yes TAKE 1 Method i 25 mg 5-[address] tablet 00:00: DAILY Hospita 00 l buPROPion Yes [id number] TAKE 1 M ethodi XL 4-[address] (WELLBUTRIN 00:00: DAILY Hospi ta XL) 150 MG 00 l 24 hr tablet nystatin Yes APPLY Method[facility] (MYCOSTATIN 4-[address] ) 100,000 00:00: TWICE A Hospi ta unit/gram 00 DAY l cream buPROPion Yes [id number] TAKE 1 M ethodi XL 4-[address] (WELLBUTRIN 00:00: DAILY Hospi ta XL) 150 MG 00 l 24 hr tablet nystatin Yes APPLY Method[facility] (MYCOSTATIN 4-[address] ) 100,000 00:00: TWICE A Hospi ta unit/gram 00 DAY l cream benzonatate Yes 100mg Q.[id number] Take 1 [facility] (TESSALON) 3-[id number] 100 MG 00:00: 3D (100 mg Hospita capsule 00 total) by l mouth 3 (three) times a day as needed for cough. benzonatate Yes 100mg Q.[id number] Take 1 [facility] (TESSALON) 3-[id number] 100 MG 00:00: 3D (100 mg Hospita capsule 00 total) by l mouth 3 (three) times a day as needed for cough. BD INSULIN Yes USE Metho di PEN NEEDLE 3-[address] [facility] MINI 31 00:00: Hospita gauge x 00 l 16" needle valsartan Yes TAKE 1 Method i (DIOVAN) 3-[address] 320 MG 00:00: DAILY Hospita tablet 00 l BD INSULIN Yes USE Metho di PEN NEEDLE 3-[address] [facility] MINI 31 00:00: Hospita gauge x 00 l 16" needle valsartan Yes TAKE 1 Method i (DIOVAN) 3-[address] 320 MG 00:00: DAILY Hospita tablet 00 l metFORMIN Yes TAKE 1 Method i (GLUCOPHAGE 3-[address] ) 1,000 mg 00:00: TWICE A Hosp patti tablet 00 DAY l FREESTYLE Yes USE TO Method i LITE STRIPS 3-[address] strip test 00:00: A DAY Hospit a strips 00 l metFORMIN Yes TAKE 1 Method i (GLUCOPHAGE 3-[address] ) 1,000 mg 00:00: TWICE A Hosp patti tablet 00 DAY l FREESTYLE Yes USE TO Method i LITE STRIPS 3-[address] strip test 00:00: A DAY Hospit a strips 00 l cetirizine Yes 10mg QD Take 10 mg M ethodi (ZyrTEC) 10 2-[address] MG tablet 16:01: daily. Hospit a 19 l cetirizine Yes 10mg QD Take 10 mg M ethodi (ZyrTEC) 10 2-[address] MG tablet 16:01: daily. Hospit a 19 l multivitami Yes 1{tbl} QD Take 1 Me thodi n 2-[address] (THERAGRAN) 16:00: mouth Hospi ta tablet 22 daily. l CYANOCOBALA Yes 1{tbl} QD Take 1 Me thodi MIN, 2-[address] VITAMIN 16:00: mouth Hospita B-12, 22 daily. l (VITAMIN B-12 ORAL) LACTOBACILL Yes 1{capsu QD Take 1 M ethodi US 2-27 le} capsule by st ACIDOPHILUS 16:00: mouth Hospi ta (PROBIOTIC 22 daily. l ORAL) multivitami Yes 1{tbl} QD Take 1 Me thodi n 2-[address] (THERAGRAN) 16:00: mouth Hospi ta tablet 22 daily. l CYANOCOBALA Yes 1{tbl} QD Take 1 Me thodi MIN, 2-[address] VITAMIN 16:00: mouth Hospita B-12, 22 daily. l (VITAMIN B-12 ORAL) LACTOBACILL Yes 1{capsu QD Take 1 M ethodi US 2-27 le} capsule by st ACIDOPHILUS 16:00: mouth Hospi ta (PROBIOTIC 22 daily. l ORAL) fexofenadin 2016-0 Yes 1{tbl} QD Take 1 Me thodi e-pseudoepH 2-[address] EDrine 15:59: mouth Hospita (DAYLIN-D 07 daily. l 24) 180-240 mg per 24 hr tablet naproxen 0 Yes 250mg Q.5D Take 250 Meth dany (NAPROSYN) 2-[address] 250 MG 15:59: mouth 2 Hospita tablet 07 (two) l times a day with meals. fexofenadin Yes 1{tbl} QD Take 1 Me thodi e-pseudoepH 2-[address] EDrine 15:59: mouth Hospita (DAYLIN-D 07 daily. l 24) 180-240 mg per 24 hr tablet naproxen 0 Yes 250mg Q.5D Take 250 Meth dany (NAPROSYN) 2-[address] 250 MG 15:59: mouth 2 Hospita tablet 07 (two) l times a day with meals. traMADol Yes 50mg Q6H Take 50 mg Met hodi (ULTRAM) 50 2-[address] mg tablet 15:34: every 6 Hospi ta 09 (six) l hours as needed for moderate pain. traMADol 0 Yes 50mg Q6H Take 50 mg Met hodi (ULTRAM) 50 2-[address] mg tablet 15:34: every 6 Hospi ta 09 (six) l hours as needed for moderate pain. PROAIR HFA Yes USE 2 Method i 90 2-[address] mcg/actuati 00:00: S EVERY 6 H ospita on inhaler 00 HOURS l NEEDED FOR WHEEZING PROAIR HFA Yes USE 2 Method i 90 2-[address] mcg/actuati 00:00: S EVERY 6 H ospita on inhaler 00 HOURS l NEEDED FOR WHEEZING LANTUS 2015-11 Yes INJECT 60 Method i SOLOSTAR 1-[address] 100 unit/mL 00:00: UNDER THE H ospita (3 mL) 00 SKIN EVERY l insulin pen EVENING LANTUS 2015-11 Yes INJECT 60 Method i SOLOSTAR 1-[address] 100 unit/mL 00:00: UNDER THE H ospita (3 mL) 00 SKIN EVERY l insulin pen EVENING amLODIPine 2015-11 Yes TAKE 1 Metho di (NORVASC) 1-[address] 10 MG 00:00: DAILY Hospita tablet 00 l amLODIPine 2015-11 Yes TAKE 1 Metho di (NORVASC) 1-[address] 10 MG 00:00: DAILY Hospita tablet 00 l pen needle, Yes [id number] Use once Methodi diabetic 31 9-[address] gauge x 00:00: lantus pen Hosp patti 04/12" l needle pen needle, Yes [id number] Use once Methodi diabetic 31 9-[address] gauge x 00:00: lantus pen Hosp patti 04/12" l needle lancets Yes [id number] BID Metho di misc - testing st 00:00: Hospita 00 l lancets Yes [id number] BID Metho di misc 08-[address] 00:00: Hospita 00 l FREESTYLE Yes USE Method i FREEDOM 1-[address] LITE kit 00:00: TWICE A Hospit a DAY. l FREESTYLE Yes USE Method i FREEDOM 1-[address] LITE kit 00:00: TWICE A Hospit a 00 DAY. l Lantus Lantus Yes Yao inject [address] [facility] SoloStar SoloStar [facility] Gabapentin Gabapentin Yes Yao [address] [facility] Simvastatin Simvastatin Yes Yao [address] [facility] - evening [facility] Amlodipine Amlodipine Yes Yao [address] [facility] Besylate Besylate [facility] Trulicity Trulicity Yes Yao as [facility] Aspirin Aspirin Yes Yao [address] Adult Adult [facility] Gabapentin Gabapentin Yes Yao TAKE [address] [facility] CAPSULE [facility] - TWICE A Memoria DAY l [facility] Metformin Metformin Yes Yao [address] HCl HCl [facility] with a [facility] - meal [facility] Zyrtec [facility] Yes Yao [facility] Valsartan Valsartan Yes Yao [address] [facility] Immunizations Ordered Filled Immunization Date Status Comments Sourc e Immunization Name Name Afluria single dose Afluria single dose 2019-08-[address] [facility] Influenza, 2015-08-27 Completed [facility] 00:00:00 [facility] Influenza, 2015-08-27 Completed [facility] [employer] 00:00:00 [facility] Tdap 2011-11-28 Completed [facility] 00:00:00 Hospital Tdap 2011-11-28 Completed [facility] 00:00:00 Hospital Procedures This patient has no known procedures. Plan of Care Planned Activity Planned Date Details Comments Source Future Scheduled Test COVID-19 VACCINE (1) [facility] [code = COVID-19 VACCINE (1)] Future Scheduled Test Screening for malignant [facility] neoplasm of cervix (procedure) [code = 778492104] Future Scheduled Test COLONOSCOPY SCREENING [facility] [code = COLONOSCOPY SCREENING] Future Scheduled Test SHINGLES VACCINES (#1) [facility] [code = SHINGLES VACCINES (#1)] Future Scheduled Test BREAST CANCER SCREENING [facility] [code = BREAST CANCER SCREENING] Future Scheduled Test 65+ PNEUMOCOCCAL [facility] VACCINE (1 of 1 - PPSV23) [code = 65+ PNEUMOCOCCAL VACCINE (1 of 1 - PPSV23)] Future Scheduled Test INFLUENZA VACCINE [code [facility] = INFLUENZA VACCINE] Future Scheduled Test COVID-19 VACCINE (1) [facility] [code = COVID-19 VACCINE (1)] Future Scheduled Test Screening for malignant [facility] neoplasm of cervix (procedure) [code = 231371173] Future Scheduled Test COLONOSCOPY SCREENING [facility] [code = COLONOSCOPY SCREENING] Future Scheduled Test SHINGLES VACCINES (#1) [facility] [code = SHINGLES VACCINES (#1)] Future Scheduled Test BREAST CANCER SCREENING [facility] [code = BREAST CANCER SCREENING] Future Scheduled Test 65+ PNEUMOCOCCAL [facility] VACCINE (1 of 1 - PPSV23) [code = 65+ PNEUMOCOCCAL VACCINE (1 of 1 - PPSV23)] Future Scheduled Test INFLUENZA VACCINE [code [facility] = INFLUENZA VACCINE] Encounters Start End Encounter Admission Attending Care Care Encounter Source Date/Time Date/Time Type Type Clinicians Facility Department ID 2021-04-10 2021-04-10 Outpatient [facility] [id number] [facility] 2021-01-21 2021-01-21 Outpatient [facility] [id number] [facility] 2021-01-19 2021-01-19 Outpatient [facility] [id number] [facility] 2021-01-05 2021-01-05 Outpatient [facility]LMLC STLC [id number] [facility] 2021-01-05 2021-01-05 Outpatient [facility]MLC [facility] [id number] [facility] 2020-10-06 2020-10-06 Outpatient [facility]MLC [facility] [id number] [facility] 2020-09-16 2020-09-16 Outpatient [facility] [id number] [facility] 2020-07-28 2020-07-28 [facility] [id number] [address] 10:15:00 10:15:00 t [facility] - [facility] l Medicine Outpati ent Clinics 2020-07-03 2020-07-03 [facility] [id number] 13:15:00 13:15:00 t [facility] - [facility] Medicine Outpati ent Clinics 2020-06-03 2020-06-03 [facility] [id number] 08:10:00 08:10:00 t [place] - [facility] l Medicine Outpati ent Clinics 2020-04-02 2020-04-02 [facility] [id number] 14:30:00 14:30:00 t [employer] - [employer] [facility] Medicine Medicine Outpati ent Clinics 2020-03-19 2020-03-19 [facility] [id number] 16:00:00 16:00:00 t [facility] s - Drive [facility] Medicine Medicine Outpati ent Clinics 2020-03-18 2020-03-18 [facility] [id number] 10:06:00 10:06:00 t [facility] - Drive [facility] Medicine Medicine Outpati ent Clinics 2020-02-19 2020-02-19 [facility] [id number] 10:31:00 10:31:00 t [employer] [facility] Medicine Outpati ent Clinics 2020-02-14 2020-02-14 [facility] [id number] 11:00:00 11:00:00 t [facility] [employer] [facility] Medicine Outpati ent Clinics 2020-02-14 2020-02-14 [facility] [id number] 09:52:00 09:52:00 t [facility] Medicine Outpati ent Clinics 2020-01-25 2020-01-25 [facility] [id number] 10:49:00 10:49:00 t [employer] [employer] [facility] Medicine Outpati ent Clinics 2020-01-12 2020-01-12 [facility] [id number] 00:00:00 00:00:00 Deandra Thompson [id number] Aurelio Suh [id number] [facility] [id number] [address] 2019-12-25 2019-12-25 [facility] [id number] 09:30:00 09:30:00 corrine Card Jatin [place] [facility] Medicine l Medicine Outpati ent Clinics 2019-11-30 2019-11-30 [facility] [id number] 08:30:00 08:30:00 t [place] [facility] - Drive [facility] Medicine Outpati ent Clinics 2019-11-16 2019-11-16 [facility] [id number] 15:35:00 15:35:00 t [facility] - Drive [facility] Medicine Outpati ent Clinics 2019-11-01 2019-11-01 [facility] [id number] 10:00:00 10:00:00 t [facility] - Drive [facility] Medicine Outpati ent Clinics 2019-10-31 2019-10-31 [facility] [id number] 09:59:00 09:59:00 t [facility] - Drive [facility] Medicine Outpati ent Clinics 2019-08-28 2019-08-28 [facility] [id number] 09:51:00 09:51:00 t [place] [facility] - Drive [facility] Medicine Outpati ent Clinics 2019-08-27 2019-08-27 [facility] [id number] 09:46:00 09:46:00 t [place] [facility] - Drive [facility] Medicine Outpati ent Clinics 2019-08-22 2019-08-22 [facility] [id number] 08:15:00 08:15:00 t [employer] [facility] - Drive [facility] Medicine Outpati ent Clinics Results This patient has no known results.
--- NOTE | 2021-07-22 08:54 | ER ---
Nurse's Notes [facility] Name: Jazlyn Granados Age: 65 yrs Sex: Female : 1955 Arrival Date: 07/22/2021 Time: 08:21 Bed Waiting Private MD: Bubba Velez V Diagnosis: Encounter for change or removal of nonsurgical wound dressing Presentation: 07/22 08:48 Chief complaint: Patient states: needs wound check to right hand, was seen here aa5 recently. Coronavirus screen: At this time, the client does not indicate any symptoms associated with coronavirus-19. Ebola Screen: Patient negative for fever greater than or equal to 101.5 degrees Fahrenheit, and additional compatible Ebola Virus Disease symptoms. Initial Sepsis Screen: Does the patient meet any 2 criteria? No. Patient's initial sepsis screen is negative. Does the patient have a suspected source of infection? No. Patient's initial sepsis screen is negative. Risk Assessment: Do you want to hurt yourself or someone else? Patient reports no desire to harm self or others. Onset of symptoms was July 22, 2021. 08:48 Method Of Arrival: Ambulatory aa5 08:48 Acuity: KAELYN 4 aa5 Historical: - Allergies: 08:49 Lisinopril; aa5 - PMHx: 08:49 Anxiety; Depression; Diabetes - IDDM; Hyperlipidemia; Hypertension; aa5 Screenin:55 Abuse screen: Denies threats or abuse. Nutritional screening: No deficits noted. aa5 Tuberculosis screening: No symptoms or risk factors identified. Fall Risk None identified. Assessment: 08:48 General: Appears comfortable, Behavior is calm, cooperative. Pain: Complains of pain in aa5 dorsum of right hand. Neuro: Level of Consciousness is awake, alert, obeys commands, Oriented to person, place, time, situation. Cardiovascular: Patient's skin is warm and dry. Respiratory: Airway is patent Respiratory effort is even, unlabored, Respiratory pattern is regular, symmetrical. GI: No signs and/or symptoms were reported involving the gastrointestinal system. : No signs and/or symptoms were reported regarding the genitourinary system. EENT: No signs and/or symptoms were reported regarding the EENT system. Derm: Skin is pink, warm \\T\\ dry. Wound to dorsum of right hand with mild redness noted, no drainage noted, with packing in place noted. Pt states "the wound looks better". Musculoskeletal: Range of motion: intact in all extremities. 08:52 Reassessment: Wound being repacked by COURT SUPERVISOR in triage . aa5 08:55 Reassessment: Wound with new packing in place, cleaned with saline, dressed with gauze aa5 and Kerlix. . 09:05 Reassessment: Patient is alert, oriented x 3, equal unlabored respirations, skin aa5 warm/dry/pink. Vital Signs: 08:49 BP 113 / 80; Pulse 98; Resp 20 S; Pulse Ox 96% on 3 lpm NC; aa5 ED Course: 08:21 Patient arrived in ED. as 08:29 Bubba Velez MD is Private Physician. as 08:43 Katey Christensen FNP-C is [facility]. kb 08:43 Bill Castro MD is Attending Physician. kb 08:48 Arm band placed on. aa5 08:48 Patient has correct armband on for positive identification. aa5 08:49 Triage completed. aa5 08:54 Biju Perry MD is Referral Physician. kb 09:05 No provider procedures requiring assistance completed. Patient did not have IV access aa5 during this emergency room visit. Administered Medications: No medications were administered Outcome: 08:54 Discharge ordered by . kb 09:05 Discharged to home ambulatory, with friend. aa5 09:05 Condition: stable 09:05 Discharge instructions given to patient, Instructed on discharge instructions, follow up and referral plans. Demonstrated understanding of instructions, follow-up care. 09:08 Patient left the ED. aa5 Signatures: Katey Christensen FNP-C FNP-Kylie Cho as Beatriz Cid, RN RN aa5 Corrections: (The following items were deleted from the chart) 09:08 08:55 Reassessment: Wound cleaned with saline, dressed with gauze and Kerlix. . aa5 aa5
--- NOTE | 2021-07-22 08:54 | EDPHYS ---
Physician Documentation [facility] Name: Jazlyn Granados Age: 65 yrs Sex: Female : 1955 Arrival Date: 07/22/2021 Time: 08: Bed Waiting Private MD: Bubba Velez V ED Physician Bill Castro HPI: 07/22 08:59 This 65 yrs old Female presents to ER via Ambulatory with complaints of Wound kb Check. 08:59 Patient presents to ED for recheck of: abscess. The affected area is on the dorsum of kb right hand. Previous treatment: The patient was initially treated 2 day(s) ago, the care was rendered at [facility], Treatment type: The patient's original treatment included an I\\T\\D. Progress: The patient reports decreased drainage, fever, pain, redness, swelling. The patient has not experienced similar symptoms in the past. The patient has not recently seen a physician. Historical: - Allergies: 08:49 Lisinopril; aa5 - PMHx: 08:49 Anxiety; Depression; Diabetes - IDDM; Hyperlipidemia; Hypertension; aa5 ROS: 08:58 Constitutional: Negative for fever, chills, and weight loss, MS/Extremity: Negative for kb injury and deformity, Neuro: Negative for headache, weakness, numbness, tingling, and seizure. 08:58 Skin: Positive for abscess, of the dorsum of right hand. Exam: 08:58 Constitutional: This is a well developed, well nourished patient who is awake, alert, kb and in no acute distress. Head/Face: Normocephalic, atraumatic. ENT: Moist Mucous membranes Respiratory: Respirations even and unlabored. No increased work of breathing, no retractions or nasal flaring. MS/ Extremity: Pulses equal, no cyanosis. Neurovascular intact. Full, normal range of motion. Neuro: Awake and alert, GCS 15, oriented to person, place, time, and situation. Moves all extremities. Normal gait. Psych: Awake, alert, with orientation to person, place and time. Behavior, mood, and affect are within normal limits. 08:58 Skin: Wound recheck: Abscess: the wound has improved, decreased erythema, decreased pain, the packing is in place. Vital Signs: 08:49 BP 113 / 80; Pulse 98; Resp 20 S; Pulse Ox 96% on 3 lpm NC; aa5 MDM: 08:54 Patient medically screened. kb 08:54 Data reviewed: vital signs, nurses notes. Data interpreted: Pulse oximetry: on room air kb is 96 %. Interpretation: normal. Counseling: I had a detailed discussion with the patient and/or guardian regarding: the historical points, exam findings, and any diagnostic results supporting the discharge/admit diagnosis, the need for outpatient follow up, a general surgeon, a hand specialist, to return to the emergency department if symptoms worsen or persist or if there are any questions or concerns that arise at home. 08:57 ED course: Packing removed and abscess repacked with 1/4" iodoform gauze. kb Administered Medications: No medications were administered Disposition: 07/23 07:49 Co-signature as Attending Physician, Bill Castro MD I agree with the assessment and heladio plan of care. Disposition Summary: 07/22/21 08:54 Discharge Ordered Location: Home kb Condition: Stable kb Diagnosis - Encounter for change or removal of nonsurgical wound dressing kb Followup: kb - With: Emergency Department - When: As needed - Reason: Worsening of condition Followup: kb - With: Private Physician - When: 2 - 3 days - Reason: Recheck today's complaints, Continuance of care, Re-evaluation by your physician Followup: kb - With: Biju Perry MD - When: 1 - 2 days - Reason: Recheck today's complaints Discharge Instructions: - Discharge Summary Sheet kb - Incision and Drainage, Care After kb Forms: - Medication Reconciliation Form kb - Thank You Letter kb - Antibiotic Education kb - Prescription Opioid Use kb Signatures: Katey Christensen, TOBACCO STRIPPER HAND-C TOBACCO STRIPPER HAND-Bill Duran MD MD cha Calderon, Audri, RN RN aa5
[2021-07-22 09:12] VITALS: BP 113/80; O2SAT 96
== END 2021-07-22 09:08 | disposition home or self-care (01) ==
LOC: ER 08:18
DX: Z48.01 Encounter for change or removal of surgical wound dressing (principal)
CPT/HCPCS: 99281

== ENCOUNTER 2021-08-06 07:37 | Day surgery (SDC) | payer OTHER ==
[2021-08-05 15:39] LABS: Urine Appearance CLEAR (Clear); Urine Color YELLOW (Yellow); Urine Specific Gravity >=1.030 (1.005-1.030)
[2021-08-05 15:40] LABS: Urine Bilirubin NEGATIVE (Negative); Urine Blood NEGATIVE (Negative); Urine Glucose 3+ (Negative); Urine Protein NEGATIVE (Negative); Urine Urobilinogen 0.2 mg/dL (0.2-1.0); Urine pH 5.5 (5.0-7.0)
[2021-08-05 15:42] LABS: Urine Microscopic Reflex ORDER UMIC
--- NOTE | 2021-08-05 15:44 | RAD REPORT ---
EXAM DESCRIPTION: RAD - Chest Pa And Lat (2 Views) - 08/05/2021 3:33 pm CLINICAL HISTORY: preop COMPARISON: Chest Single View dated 06/25/2021; Chest Pa And Lat (2 Views) dated 11/27/2016; Chest Si ngle View dated 08/24/2016 FINDINGS: Lines: None. Lungs: Mild improved aeration of the lungs bilaterally with some clearing of the bilateral pulmonary airspace opacities. There is still some residual airspace opacities remaining . Pleural: No significant pleural effusions or pneumothorax. Cardiac: The heart size is within normal limits. Bones: No acute fractures. Other: IMPRESSION: Improving though not completely resolve bilateral airspace disease consistent with seque la of prior pneumonia.
[2021-08-05 15:52] LABS: Urine Bacteria <20 /HPF (<20)
[2021-08-05 15:55] LABS: Potassium 3.6 mmol/L (3.5-5.1)
[2021-08-05 16:00] LABS: Absolute Lymphocytes (CBC) 3.6 K/uL (0.7-4.9); Basophils % 1.4 % (0-1.3); Hematocrit 34.1 % (36.0-45.0); Lymphocytes % 35.1 % (15.3-44.8); MPV 7.4 fL (7.6-11.3); RBC Red Blood Cell Count 4.15 M/uL (3.86-4.86)
[2021-08-05 17:47] LABS: White Blood Cell Scan OK (OK)
[2021-08-05 17:48] LABS: Anisocytosis 1+; Blood Morphology Comment NOTED (NOT SEEN); Platelet Estimate ADEQ
[2021-08-06] MEDS ORDERED: NA CHLORIDE 0.9% 1,000 ML ONE (08:29)
[2021-08-06] MEDS ORDERED: CEFAZOLIN/SWI 1gm 1 GM/10 ML SYR ONE (08:30)
[2021-08-06] MEDS ORDERED: propofoL 200 MG/20 ML VIAL IV ONE (08:35)
[2021-08-06] MEDS ORDERED: FENTANYL CITR 100 MCG/2 ML ONE (08:36)
[2021-08-06] MEDS ORDERED: MIDAZOLAM HCL 2 MG/2 ML INJ ONE (08:36)
[2021-08-06] MEDS ORDERED: ONDANSETRON 4 MG/2 ML VIAL ONE (08:36)
[2021-08-06] MEDS ORDERED: LIDOCAINE 2% MPF 5 ML VIAL ONE (08:36)
[2021-08-06] MEDS ORDERED: dexAMETHasone 4 MG/ML VIAL ONE (08:36)
[2021-08-06] MEDS ORDERED: KETOROLAC 30 MG/ML INJ ONE (08:37)
[2021-08-06] MEDS ORDERED: LIDOCAINE 1% W/EPI 1:100,000 MDV 50 ML VIAL ONE (09:43)
[2021-08-06] MEDS ORDERED: Mastisol Adhesive Liq ONE (10:12)
--- NOTE | 2021-08-06 10:24 | OP ---
Surgeon: Biju Perry MD Preoperative Diagnosis: Open wound, right dorsal hand. Postoperative Diagnosis: Open wound, right dorsal hand. Procedure Performed: Excision of 2.5 cm lesion with flap closure. Anesthesia: Local and sedation. Procedure In Detail: A 1% Xylocaine with epinephrine used to infiltrate the dorsal hand over the fourth metacarpal and then the hand was prepped with Betadine scrub, Betadine paint, dry sterile drapes were applied in the usual manner. A felt-tip marking pen was used for elliptical incision. Scalpel was used on skin, dissection down to some thrombosed vein. This was curetted as well and then the wound was closed after electrocautery was used for hemostasis and closed with 4-0 PDS subq than 4-0 Prolene in running subcuticular followed by tincture of benzoin, Steri-Strips, and then 2-inch Phani. The patient tolerated the procedure well and returned to Recovery. NITA/TABITHA Voice ID: [id number] Report ID: [id number] HARMAN
[2021-08-06] MEDS ORDERED: CODEINE 30MG/APAP 300MG TAB ONE (10:48)
[2021-08-06 10:58] VITALS: BP 144/68; TEMP 97.6; O2SAT 97
== END 2021-08-06 10:55 | disposition home or self-care (01) ==
LOC: OR 07:37
PROVIDERS: ATTEND Specialist
PROC: 0JBJ0ZZ Excision of Right Hand Subcutaneous Tissue and Fascia, Open Approach (ICD-10-PCS; principal; 2021-08-06 09:00)
DX: L57.0 Actinic keratosis (principal); L57.8 Other skin changes due to chronic exposure to nonionizing radiation
CPT/HCPCS: 11423; 87088; 85025; 87086; 80048; 36415; 82947; 88305; 87077; 87186; 71046; J2704; J2250; J0690; J7030; 81003; 81015; J1100; J2405; J3010

== ENCOUNTER 2021-10-08 12:20 | Emergency (ER) | payer OTHER ==
--- NOTE | 2021-10-08 13:37 | RAD REPORT ---
EXAM DESCRIPTION: RAD - Chest Single View - 10/08/2021 1:12 pm CLINICAL HISTORY: Cough;Congestion COMPARISON: August 05 TECHNIQUE: AP portable chest image was obtained 10/08/2021 1:12 pm . FINDINGS: Lung volumes are low. This accentuates the baseline interstitial fibrotic pattern. No foca l peripheral mass or consolidation. Failure or volume overload are not suspected. Severity of chronic disease could mask early edema or infiltrate. Heart and vasculature are normal. No measurable pleural effusion and no pneumothorax. No acute bony abnormality seen. No acute aortic findings suspected. IMPRESSION: No acute cardiopulmonary finding seen. Prominent baseline interstitial fibrotic pattern could mask edema or infiltrate. No significant change from the comparison.
[2021-10-08 14:41] LABS: SARS-COV-2 RT PCR NEGATIVE (NEGATIVE)
--- NOTE | 2021-10-08 14:59 | ER ---
Nurse's Notes [facility] Name: Jazlyn Granados Age: 66 yrs Sex: Female : 1955 Arrival Date: 10/08/2021 Time: 12:25 Bed 16 Private MD: Bubba Velez V Diagnosis: Acute upper respiratory infection, unspecified Presentation: 10/08 12:37 Chief complaint: Patient states: I have a really bad productive cough. I think it is a ld1 sinus infection and I want to make sure that is what it is. Coronavirus screen: Client presents with at least one sign or symptom that may indicate coronavirus-19. Standard/surgical mask placed on the client. Ebola Screen: No symptoms or risks identified at this time. Initial Sepsis Screen: Does the patient meet any 2 criteria? No. Patient's initial sepsis screen is negative. Does the patient have a suspected source of infection? No. Patient's initial sepsis screen is negative. Risk Assessment: Do you want to hurt yourself or someone else? Patient reports no desire to harm self or others. Onset of symptoms was October 08, 2021. 12:37 Method Of Arrival: Ambulatory ld1 12:37 Acuity: KAELYN 4 ld1 Triage Assessment: 12:39 General: Appears in no apparent distress. comfortable, Behavior is calm, cooperative, ld1 appropriate for age. Pain: Denies pain. Neuro: Level of Consciousness is awake, alert, obeys commands, Oriented to person, place, time, situation, Appropriate for age. Cardiovascular: Capillary refill < 3 seconds Patient's skin is warm and dry. Respiratory: Airway is patent Respiratory effort is even, unlabored, Respiratory pattern is regular, symmetrical. GI: Abdomen is round non-distended. : No signs and/or symptoms were reported regarding the genitourinary system. Derm: No signs and/or symptoms reported regarding the dermatologic system. Musculoskeletal: No signs and/or symptoms reported regarding the musculoskeletal system. Historical: - Allergies: 12:39 Lisinopril; ld1 - Home Meds: 12:39 amlodipine 10 mg tab 1 tab once daily [Active]; bupropion HCl 150 mg Oral Tb24 1 tab ld1 once daily [Active]; glimepiride 4 mg Oral tab 1 tab once daily [Active]; metformin 1,000 mg Oral tr24 1 tab twice a day [Active]; valsartan 320 mg Oral tab 1 tab once daily [Active]; Insulin Glargine Sub-Q [Active]; fexofenadine 180 mg Oral tab 1 tab once daily [Active]; simvastatin 10 mg Oral tab 1 tab once daily [Active]; - PMHx: 12:39 Anxiety; Depression; Diabetes - IDDM; Hyperlipidemia; Hypertension; ld1 - Immunization history:: Adult Immunizations up to date, Client reports having NOT received the Covid vaccine. - Social history:: Smoking status: Patient denies any tobacco usage or history of. Patient/guardian denies using alcohol. Screenin:00 Abuse screen: Denies threats or abuse. Denies injuries from another. Nutritional jt3 screening: No deficits noted. Tuberculosis screening: No symptoms or risk factors identified. Fall Risk None identified. Assessment: 13:00 Cardiovascular: Rhythm is sinus tachycardia. Respiratory: Reports cough that is jt3 productive, hacking, Breath sounds are clear bilaterally. Per Katey HOFFMAN. 14:48 Reassessment: Patient appears in no apparent distress at this time. Patient and/or jt3 family updated on plan of care and expected duration. Pain level reassessed. Vital Signs: 12:37 BP 102 / 44; Pulse 108; Resp 22; Temp 98.1(TE); Pulse Ox 96% on R/A; Weight 70.31 kg; ld1 Height 4 ft. 11 in. (149.86 cm); Pain 0/10; 14:48 BP 104 / 71; Pulse 98; Resp 20; Pulse Ox 96% on R/A; jt3 12:37 Body Mass Index 31.31 (70.31 kg, 149.86 cm) ld1 ED Course: 12:25 Patient arrived in ED. am2 12:25 Bubba Velez MD is Private Physician. am2 12:39 Triage completed. ld1 12:39 Arm band placed on right wrist. ld1 12:45 Katey Christensen FNP-C is PHCP. kb 12:45 Anne-Marie aCllahan MD is Attending Physician. kb 12:47 Elfego Orantes, NETO is Primary Nurse. jt3 13:00 Bed in low position. Call light in reach. Side rails up X2. jt3 13:00 No provider procedures requiring assistance completed. jt3 13:12 Chest Single View XRAY In Process Unspecified. EDMS 15:17 Patient did not have IV access during this emergency room visit. ss Administered Medications: No medications were administered Outcome: 14:59 Discharge ordered by . kb 15:17 Discharged to home ambulatory. ss 15:17 Condition: good 15:17 Discharge instructions given to patient, Instructed on discharge instructions, follow up and referral plans. Demonstrated understanding of instructions, follow-up care, medications, Prescriptions given X 1. 15:19 Patient left the ED. ss Signatures: Dispatcher [employer] EDGA Katey Christensen, LEAK DETECTOR-C LEAK DETECTOR-Lena Eric, RN RN Shabana Novak Lauren, RN RN ld1 Elfego Orantes RN RN jt3
--- NOTE | 2021-10-08 14:59 | EDPHYS ---
Physician Documentation [facility] Name: Jazlyn Granados Age: 66 yrs Sex: Female : 1955 Arrival Date: 10/08/2021 Time: 12:25 Bed 16 Private MD: Bubba Velez V ED Physician Anne-Marie Callahan HPI: 10/08 15:38 This 66 yrs old Female presents to ER via Ambulatory with complaints of kb Cough, Sinus Congestion. 15:38 The patient or guardian reports cough, that is intermittent, described as mild. Onset: kb The symptoms/episode began/occurred 3 day(s) ago, and became worse this morning. Severity of symptoms: At their worst the symptoms were moderate, in the emergency department the symptoms are unchanged. Modifying factors: The symptoms are alleviated by nothing, the symptoms are aggravated by nothing. Associated signs and symptoms: Pertinent positives: rhinorrhea, Pertinent negatives: chest pain, diarrhea, ear ache, fever, nausea, sore throat, vomiting. The patient has not experienced similar symptoms in the past. The patient has not recently seen a physician. Pt states she believes she has a sinus infection because she has had cough and congestion for 3 days. States symptoms are worse today so she came to make sure it wasn't something more serious. Historical: - Allergies: 12:39 Lisinopril; ld1 - Home Meds: 12:39 amlodipine 10 mg tab 1 tab once daily [Active]; bupropion HCl 150 mg Oral Tb24 1 tab ld1 once daily [Active]; glimepiride 4 mg Oral tab 1 tab once daily [Active]; metformin 1,000 mg Oral tr24 1 tab twice a day [Active]; valsartan 320 mg Oral tab 1 tab once daily [Active]; Insulin Glargine Sub-Q [Active]; fexofenadine 180 mg Oral tab 1 tab once daily [Active]; simvastatin 10 mg Oral tab 1 tab once daily [Active]; - PMHx: 12:39 Anxiety; Depression; Diabetes - IDDM; Hyperlipidemia; Hypertension; ld1 - Immunization history:: Adult Immunizations up to date, Client reports having NOT received the Covid vaccine. - Social history:: Smoking status: Patient denies any tobacco usage or history of. Patient/guardian denies using alcohol. ROS: 15:36 Constitutional: Negative for fever, chills, and weight loss. kb 15:36 ENT: Positive for rhinorrhea, sinus congestion. 15:36 Respiratory: Positive for cough, Negative for dyspnea on exertion, hemoptysis, orthopnea, pleurisy, shortness of breath, sputum production, wheezing. 15:36 All other systems are negative. Exam: 15:38 Constitutional: This is a well developed, well nourished patient who is awake, alert, kb and in no acute distress. Head/Face: Normocephalic, atraumatic. ENT: Moist Mucous membranes Respiratory: Respirations even and unlabored. No increased work of breathing, no retractions or nasal flaring. Skin: Warm, dry with normal turgor. Normal color. MS/ Extremity: Pulses equal, no cyanosis. Neurovascular intact. Full, normal range of motion. Neuro: Awake and alert, GCS 15, oriented to person, place, time, and situation. Moves all extremities. Normal gait. Psych: Awake, alert, with orientation to person, place and time. Behavior, mood, and affect are within normal limits. Vital Signs: 12:37 BP 102 / 44; Pulse 108; Resp 22; Temp 98.1(TE); Pulse Ox 96% on R/A; Weight 70.31 kg; ld1 Height 4 ft. 11 in. (149.86 cm); Pain 0/10; 14:48 BP 104 / 71; Pulse 98; Resp 20; Pulse Ox 96% on R/A; jt3 12:37 Body Mass Index 31.31 (70.31 kg, 149.86 cm) ld1 MDM: 12:45 Patient medically screened. kb 15:35 Data reviewed: vital signs, nurses notes. Data interpreted: Pulse oximetry: on room air kb is 96 %. Interpretation: normal. Counseling: I had a detailed discussion with the patient and/or guardian regarding: the historical points, exam findings, and any diagnostic results supporting the discharge/admit diagnosis, lab results, radiology results, the need for outpatient follow up, a family practitioner, to return to the emergency department if symptoms worsen or persist or if there are any questions or concerns that arise at home. 10/08 12:57 Order name: COVID-19/FLU A+B (Document "Date of Onset" if Symptomatic); Complete Time: kb 14:45 11/11 12:57 Order name: Chest Single View XRAY; Complete Time: 13:41 kb Administered Medications: No medications were administered Disposition Summary: 10/08/21 14:59 Discharge Ordered Location: Home kb Condition: Stable kb Diagnosis - Acute upper respiratory infection, unspecified kb Followup: kb - With: Emergency Department - When: As needed - Reason: Worsening of condition Followup: kb - With: Private Physician - When: 2 - 3 days - Reason: Recheck today's complaints, Continuance of care, Re-evaluation by your physician Discharge Instructions: - Discharge Summary Sheet kb - Upper Respiratory Infection, Adult, [id number] kb - Viral Respiratory Infection, [id number] kb Forms: - Medication Reconciliation Form kb - Thank You Letter kb - Antibiotic Education kb - Prescription Opioid Use kb Prescriptions: - Tessalon Perles 100 mg Oral Capsule - take 1 capsule by ORAL route every 8 hours As needed; 15 capsule; Refills: 0, kb Product Selection Permitted Addendum: 10/12/2021 06:40 Co-signature as Attending Physician, Anne-Marie Callahan MD I agree with the assessment m a2 and plan of care. PA/SPED TEACHER's history reviewed, patient interviewed, and examined. I agree with assessment and care plan and confirm the diagnosis (es) above. Signatures: Dispatcher [employer] Katey Roman, BRANDEE-C FIRE TECHNOLOGY INSTRUCTOR-Anne-Marie Marlow MD MD ma2 Mercy Schmitt RN RN ld1
[2021-10-08 15:34] VITALS: O2SAT 96
[2021-10-08 15:35] VITALS: BP 104/71
[2021-10-08 15:45] VITALS: TEMP 101
--- OUTSIDE RECORDS SUMMARY | 2021-10-10 21:34 | XMS REPORT | Continuity of Care Document ---
:1955 Author Organization [facility] t Address [address] [place] [address] Care Team Providers Name Role Phone Estefany Doty MD Primary Care Physician Alfreda KAUFMAN, Aurelio Attending Clinician Unavailable Payers Payer Name Policy Type Policy Number Effective Date Expiration Date S ource Problems Condition Condition Condition Status Onset Resolution Last Treating Co mments Source Name Details Category Date Date Treatment Clinician Date Vitamin D Vitamin D Disease Active Uni vers deficiency deficiency - it y of 00:00: [place] 00 [facility] Type 2 Type 2 Disease Active 2016-11 Univers diabetes diabetes 0-04 ity of mellitus mellitus 00:00: [place] without without 00 Medical complicati complicati Br anch on, with on, with long-term long-term current current use of use of insulin insulin Dyslipidem Dyslipidem Disease Active 2016-11 U nivers ia ia 0-04 ity of 00:00: [place] 00 [facility] Essential Essential Disease Active 2016-11 Uni vers hypertensi hypertensi 0-04 it y of on on 00:00: [place] 00 [facility] Osteoarthr Osteoarthr Disease Active M ethodi itis itis 2- 00:00: Hospita 00 l Type 2 Type 2 Disease Active Methodi diabetes diabetes 2-10 st mellitus mellitus 00:00: Hospit a 00 l HLD HLD Disease Active Methodi (hyperlipi (hyperlipi 01-07 demia) demia) 00:00: Hospita 00 l Hypertensi Hypertensi Disease Active M ethodi on on 01-07 00:00: Hospita 00 l Episodic Episodic Disease Active Overview: Me thodi mood mood 01-[address] disorder disorder 00:00: g of this Hos margareth 00 note l might be different from the original. Mood disorder Neuropathy Neuropathy Disease Active M ethodi 01-07 00:00: Hospita 00 l Allergies, Adverse Reactions, Alerts Allergy Allergy Status Severity Reaction(s) Onset Inactive Treating Comm ents Source Name Type Date Date Clinician Scotty Propensi Active Methodi Inhibito ty to 08-04 rs adverse 00:00: Hospita reaction 00 l s to drug Lisinopr Propensi Active Method i il ty to 08-04 adverse 00:00: Hospita reaction 00 l s to drug Social History Social Habit Start Date Stop Date Quantity Comments Source Sex Assigned At [facility] Alcohol intake 2017-01-24 2017-01-24 Current [facility] 00:00:00 00:00:00 non-drinker of alcohol (finding) Smoking Status Start Date Stop Date Source Unknown if ever smoked [facility] Ordered Filled Start Stop Current [...] 00:00: 00:00 meals Memoria 00 :00 l Outpati ent Clinics Wellbutrin Wellbutrin 2020-0 Yes Yao [address] [facility] XL XL 07-03 [facility] 00:[facility] morning [facility] 00 l Outpati ent Clinics Magnesium Magnesium 2020-0 2020- No Yao [address] [facility] [address] 07-02 [facility] - 00:00: 00:00 meal [facility] 00 :[facility] l [facility] Sure Sure Yes Yao [address] [facility] Comfort Pen Comfort Pen 07-04 [facility] [place] 00:00: [facility]oria 00 l [facility] Clinics VALSARTAN Yes TAKE 1 Univer s 320 mg 4-15 TABLET ity of tablet 00:00: DAILY [place] [facility] VALSARTAN Yes TAKE 1 Univer s 320 mg 4-15 TABLET ity of tablet 00:00: DAILY [place] [facility] METFORMIN Yes [id number] TAKE 1 U nivers 1,000 mg 3-11 TABLET ity of tablet 00:00: TWICE A [place] [facility] METFORMIN Yes [id number] TAKE 1 U nivers 1,000 mg 3-11 TABLET ity of tablet 00:00: TWICE A [place] [facility] Medical Branch TRULICITY Yes [id number] 1.5mg INJECT 1.5 Univers 1.5 mg/0.5 3-01 MG UNDER ity o f mL PnIj 00:00: THE [address] Medical Branch TRULICITY Yes [id number] 1.5mg INJECT 1.5 Univers 1.5 mg/0.5 3-01 MG UNDER ity o f mL PnIj 00:00: THE [facility] WEEKLY Medical Branch Insulin Yes [id number] 20U inject 20 Univers Glargine 2-04 Units ity of (LANTUS 00:00: under the [place] [address] skin Medical U-100 daily. Branch INSULIN) 100 unit/mL (3 mL) injection Insulin Yes [id number] 20U inject 20 Univers Glargine 2-04 Units ity of (LANTUS 00:00: under the [place] [address] skin Medical U-100 daily. Branch INSULIN) 100 unit/mL (3 mL) injection ergocalcife Yes Take by Un blaise renaldo, 1-02 mouth. ity of vitamin D2, 19:08: [place] (VITAMIN D 19 Medical ORAL) Branch ergocalcife Yes Take by Un blaise renaldo, 1-02 mouth. ity of vitamin D2, 19:08: [place] (VITAMIN D 19 Medical ORAL) Branch azithromyci Yes [id number] 250mg Take 1 Univers n 1-02 tablet by ity of (ZITHROMAX 00:00: mouth [place] Z-MELANIE) 250 00 SEE-INSTRU Med ical mg tablet CTIONS. Branch Take 500 mg day 1, then 250 mg days 2 to 5. simvastatin Yes [id number] 10mg Take 1 Univers 10 mg 1-02 tablet by ity of tablet 00:00: mouth [place] 00 daily. Medical Branch azithromyci Yes [id number] 250mg Take 1 Univers n 1-02 tablet by ity of (ZITHROMAX 00:00: mouth [place] Z-MELANIE) 250 00 SEE-INSTRU Med ical mg tablet CTIONS. Branch Take 500 mg day 1, then 250 mg days 2 to 5. simvastatin Yes [id number] 10mg Take 1 Univers 10 mg 1-02 tablet by ity of tablet 00:00: mouth [place] 00 daily. Medical Branch FREESTYLE 2018- Yes USE FOUR Univ ers LITE STRIPS 0-15 TIMES A ity o f strip 00:00: DAY [place] 00 DIRECTED Medical Branch FREESTYLE 2017- Yes USE FOUR Univ ers LITE STRIPS 0-15 TIMES A ity o f strip 00:00: DAY [place] 00 DIRECTED Medical Branch Insulin 2017- Yes [id number] Use as Uni vers [place], 0-01 directed ity of Disposable, 00:00: [place] (MARK PEN 00 Medical NEEDLE) 32 Branch gauge x 5/32" Ndle Insulin 2017- Yes [id number] Use as Uni vers [place], 0-01 directed ity of Disposable, 00:00: [place] (MARK PEN 00 Medical NEEDLE) 32 Branch gauge x 5/32" Ndle Blood-Gluco 2017- Yes Use as Univ ers se Meter 5-30 directed, ity of (BLOOD 00:00: QID, [place] GLUCOSE 00 DX:E11.9 Medical MONITORING) Branch Kit lancets 33 Yes Use as Unive rs gauge Misc 5-30 directed, ity of 00:00: Dx:E11.9, [place] 00 QID Medical Branch Blood-Gluco 2018-0 Yes Use as Univ ers se Meter 5-30 directed, ity of (BLOOD 00:00: QID, [place] GLUCOSE 00 DX:E11.9 Medical MONITORING) Branch Kit lancets 33 Yes Use as Unive rs gauge Misc 5-30 directed, ity of 00:00: Dx:E11.9, [place] 00 QID Medical Branch ergocalcife Yes [id number] Take 1 Univers rol, 1-09 capsule by ity of vitamin d2, 00:00: mouth [place] (VITAMIN 00 weekly. Medical D2) 50,000 Branch unit capsule ergocalcife Yes [id number] Take 1 Univers rol, 1-09 capsule by ity of vitamin d2, 00:00: mouth [place] (VITAMIN 00 weekly. Medical D2) 50,000 Branch unit capsule simvastatin Yes TAKE 1 Meth dany (ZOCOR) 10 6-[address] MG tablet 00:00: DAILY Hospita 00 l glimepiride Yes TAKE 1 Meth dany (AMARYL) 4 5-[address] MG tablet 00:00: DAILY Hospita 00 l JARDIANCE Yes TAKE 1 Method i 25 mg 5-[address] tablet 00:00: DAILY Hospita 00 l nystatin Yes APPLY Methodi (MYCOSTATIN 4-[address] ) 100,000 00:00: TWICE A Hospi ta unit/gram 00 DAY l cream buPROPion Yes TAKE 1 Univer s XL 150 mg 4-25 TABLET ity of 24 hr 00:00: DAILY [place] tablet 00 [facility] buPROPion Yes TAKE 1 Univer s XL 150 mg 4-25 TABLET ity of 24 hr 00:00: DAILY [place] tablet 00 [facility] buPROPion Yes [id number] TAKE 1 M ethodi XL 4-[address] (WELLBUTRIN 00:00: DAILY Hospi ta XL) 150 MG 00 l 24 hr tablet benzonatate Yes 100mg [id number] Take 1 Methodi (TESSALON) 3-[id number] 100 MG 00:00: 3D (100 [...] 1 Me thodi e-pseudoepH 2-27 tablet by EDrine 15:59: mouth Hospita (DAYLIN-D 07 daily. [...] pen EVENING amLODIPine 2015-11 Yes TAKE 1 Unive rs 10 mg 1-01 TABLET ity of tablet 00:00: DAILY [address] amLODIPine 2015-11 Yes TAKE 1 Unive rs 10 mg 1-01 TABLET ity of tablet 00:00: DAILY [address] amLODIPine 2015-11 Yes TAKE 1 Metho di (NORVASC) 1-[address] 10 MG 00:00: DAILY Hospita tablet 00 l pen needle, Yes [id number] Use once Methodi diabetic 31 08-[address] gauge x 00:00: lantus pen Hosp patti 04/12" 00 l needle lancets Yes [id number] BID Metho di misc 08-[address] 00:00: Hospita 00 l FREESTYLE Yes USE Method i FREEDOM 1-[address] LITE kit 00:00: TWICE A Hospit a DAY. l Lantus Lantus Yes Yao inject [address] SoloStar SoloStar [facility] Gabapentin Gabapentin Yes Yao [address] [facility] Simvastatin Simvastatin Yes Yao [address] [facility] - evening [facility] Amlodipine Amlodipine Yes Yao [address] [facility] Besylate Besylate [facility] Trulicity Trulicity Yes Yao as [facility] directed [facility] Aspirin Aspirin Yes Yao [address] Adult Adult [facility] Gabapentin Gabapentin Yes Yao TAKE [address] [facility] [facility] CAPSULE [facility] - TWICE A Memoria DAY l [facility] Metformin Metformin Yes Yao [address] HCl HCl [facility] with a [facility] - meal [facility] l [facility]ics [facility] Yes Yao 1 tablet [facility] t Allergy Allergy [facility] Valsartan Valsartan Yes Yao [address] [facility] [facility] Immunizations Ordered Filled Immunization Date Status Comments [facility] e Immunization Name Name Afluria single dose Afluria single dose 2019-08-[address] [facility] [facility] Influenza, 2015-08-27 Completed [facility] 00:00:00 Hospital Tdap 2011-11-28 Completed [facility] 00:00:00 Hospital Procedures This patient has no known procedures. Plan of Care Planned Activity Planned Date Details Comments Source Future Scheduled Test COVID-19 VACCINE (1) [facility] [code = COVID-19 VACCINE (1)] Future Scheduled Test Screening for malignant [facility] neoplasm of cervix (procedure) [code = 059454011] Future Scheduled Test COLONOSCOPY SCREENING [facility] [code = COLONOSCOPY SCREENING] Future Scheduled Test SHINGLES VACCINES (#1) [facility] [code = SHINGLES VACCINES (#1)] Future Scheduled Test BREAST CANCER SCREENING [facility] [code = BREAST CANCER SCREENING] Future Scheduled Test 65+ PNEUMOCOCCAL Me [facility] VACCINE (1 of 1 - PPSV23) [code = 65+ PNEUMOCOCCAL VACCINE (1 of 1 - PPSV23)] Future Scheduled Test INFLUENZA VACCINE [code [facility] = INFLUENZA VACCINE] Encounters Start End Encounter Admission Attending Care Care Encounter Source Date/Time Date/Time Type Type Clinicians Facility Department ID 2021-04-10 2021-04-10 Outpatient [facility] [id number] 2021-01-21 2021-01-21 Outpatient [facility] [id number] [facility] 2021-01-19 2021-01-19 Outpatient [facility] [id number] [facility] 2021-01-05 2021-01-05 Outpatient [facility] [id number] [facility] 2021-01-05 2021-01-05 Outpatient [facility] [id number] [facility] 2020-10-06 2020-10-06 Outpatient [facility] [id number] [facility] 2020-09-16 2020-09-16 Outpatient [facility] [id number] [facility] 2020-07-28 2020-07-28 [facility] [id number] 10:15:00 10:15:00 t [employer] [facility] Medicine l Medicine Outpati ent Clinics 2020-07-03 2020-07-03 [facility] [id number] 13:15:00 13:15:00 t [employer] ip[employer]io [facility] l Medicine Outpati ent Clinics 2020-06-03 2020-06-03 [facility] [id number] 08:10:00 08:10:00 t [employer] [facility] Medicine Outpati ent Clinics 2020-04-02 2020-04-02 [facility] [id number] 14:30:00 14:30:00 t [employer] [facility] Medicine Outpati ent Clinics 2020-03-19 2020-03-19 [facility] [id number] 16:00:00 16:00:00 t [employer] [facility] Medicine Outpati ent Clinics 2020-03-18 2020-03-18 [facility] [id number] 10:06:00 10:06:00 t [employer] [facility] Medicine Medicine Outpati ent Clinics 2020-02-19 2020-02-19 [facility] [id number] 10:31:00 10:31:00 t [employer] [facility] Medicine Outpati ent Clinics 2020-02-14 2020-02-14 [facility] [id number] 11:00:00 11:00:00 IRI [facility] Medicine Outpati ent Clinics 2020-02-14 2020-02-14 [facility] [id number] 09:52:00 09:52:00 Pop[facility] [employer] [facility] Medicine Outpati ent Clinics 2020-01-25 2020-01-25 [facility] [id number] 10:49:00 10:49:00 t [employer] s - Drive [facility] Medicine Outpati ent Clinics 2020-01-12 2020-01-12 [facility] [id number] 00:00:00 00:00:00 Deandra Thompson [id number] Aurelio [place] [id number] Professio [phone] nal 220 Building 2020-01-12 2020-01-12 [facility] [id number] Univers 00:00:00 00:00:00 Deandra Thompson [id number] i ty of Aurelio [place] [id number] [place] Profess[place] [phone] Me dical nal 220 Branch Building 2019-12-25 2019-12-25 [facility] [id number] 09:30:00 09:30:00 [facility] 2019-11-30 2019-11-30 [facility] [id number] 08:30:00 08:30:00 t [employer] - Drive [facility] Medicine Outpati ent Clinics 2019-11-16 2019-11-16 [facility] [id number] 15:35:00 15:35:00 t Tony [employer] - Drive [facility] Medicine Outpati ent Clinics 2019-11-01 2019-11-01 [facility] [id number] 10:00:00 10:00:00 t Tony [employer]Out [employer] - Drive [facility] Medicine Outpati ent Clinics 2019-10-31 2019-10-31 [facility] [id number] 09:59:00 09:59:00 t [employer] s - Drive [facility] Medicine Outpati ent Clinics 2019-08-28 2019-08-28 [facility] [id number] 09:51:00 09:51:00 t [employer] [facility] Outpati ent Clinics 2019-08-27 2019-08-27 Outpatient Tosin Leahyt [id number] 09:46:00 09:46:00 t [employer] [facility] 2019-08-22 2019-08-22 Outpatient Tosin Leahyt [id number] [facility] St 08:15:00 08:15:00 t [employer] [facility] Results This patient has no known results.
== END 2021-10-08 15:19 | disposition home or self-care (01) ==
LOC: ER 12:20
DX: J06.9 Acute upper respiratory infection, unspecified (principal); E11.9 Type 2 diabetes mellitus without complications; E78.5 Hyperlipidemia, unspecified; I10 Essential (primary) hypertension; F41.8 Other specified anxiety disorders; Z20.822 Contact with and (suspected) exposure to COVID-19
CPT/HCPCS: 0240U; 71045; 99284

== ENCOUNTER 2021-10-28 14:56 | Emergency (ER) | payer OTHER ==
--- OUTSIDE RECORDS SUMMARY | 2021-10-28 14:59 | XMS REPORT | Continuity of Care Document ---
:1955 Author Organization [facility] t Address [address] [place] [address] Care Team Providers Name Role Phone Estefany [...] deficiency deficiency - it y of 00:00: [place] 00 [facility] Type 2 Type 2 Disease Active 2016-11 Univers diabetes diabetes 0-04 ity of mellitus mellitus 00:00: [place] without without 00 Medical complicati complicati Br anch on, with on, with long-term long-term current current use of use of insulin insulin Dyslipidem Dyslipidem Disease Active 2016-11 U nivers ia ia 0-04 ity of 00:00: [place] 00 [facility] Essential Essential Disease Active 2016-11 Uni vers hypertensi hypertensi 0-04 it y of on on 00:00: [place] 00 [facility] Branch Osteoarthr Osteoarthr Disease Active M ethodi itis itis 2 00:00: Hospita 00 l Type 2 Type [...] Date Quantity Comments Source Sex Assigned At [facility] Alcohol intake 2017-01-24 2017-01-24 Current [facility] 00:00:00 00:00:00 non-drinker of alcohol (finding) Smoking Status Start Date Stop Date Source Unknown if ever smoked [facility] Ordered Filled Start Stop Current [...] 00:00: 00:00 meal [facility]oria 00 :00 l [facility] Clinics Sure Sure Yes Yao [address] [facility] [address] Comfort Pen Comfort Pen 07-04 [facility] [place] 00:00: Memoria 00 l [facility] ent Clinics VALSARTAN Yes TAKE 1 Univer s 320 mg 4-15 TABLET ity of tablet 00:00: DAILY [place] [facility] VALSARTAN Yes TAKE 1 Univer s 320 mg 4-15 TABLET ity of tablet 00:00: DAILY [place] [facility] METFORMIN Yes [id number] TAKE 1 U nivers 1,000 mg 3-11 TABLET ity of tablet 00:00: TWICE A [place] [facility] METFORMIN Yes [id number] TAKE 1 U nivers 1,000 mg 3-11 TABLET ity of tablet 00:00: TWICE A [place] [facility] Medical Branch TRULICITY Yes [id number] 1.5mg INJECT 1.5 Univers 1.5 mg/0.5 3-01 MG UNDER ity o f mL PnIj 00:00: THE [address] Medical Branch TRULICITY Yes [id number] 1.5mg INJECT 1.5 Univers 1.5 mg/0.5 3-01 MG UNDER ity o f mL PnIj 00:00: THE [facility] WEEKLY Medical Branch Insulin Yes [id number] 20U inject 20 Univers Glargine 2-04 Units ity of (LANTUS 00:00: under the [place] [address] skin Medical U-100 daily. Branch INSULIN) 100 unit/mL (3 mL) injection Insulin Yes [id number] 20U inject 20 Univers Glargine 2-04 Units ity of (LANTUS 00:00: under the [place] [address] skin Medical U-100 daily. Branch INSULIN) 100 unit/mL (3 mL) injection ergocalcife Yes Take by Un blaise renaldo, 1-02 mouth. ity of vitamin D2, 19:08: [place] (VITAMIN D 19 Medical ORAL) Branch ergocalcife Yes Take by Un blaise renaldo, 1-02 mouth. ity of vitamin D2, 19:08: [place] (VITAMIN D 19 Medical ORAL) Branch azithromyci Yes [id number] 250mg Take 1 Univers n 1-02 tablet by ity of (ZITHROMAX 00:00: mouth [place] Z-MELANIE) 250 00 SEE-INSTRU Med ical mg tablet CTIONS. Branch Take 500 mg day 1, then 250 mg days 2 to 5. simvastatin Yes [id number] 10mg Take 1 Univers 10 mg 1-02 tablet by ity of tablet 00:00: mouth [place] 00 daily. Medical Branch azithromyci Yes [id number] 250mg Take 1 Univers n 1-02 tablet by ity of (ZITHROMAX 00:00: mouth [place] Z-MELANIE) 250 00 SEE-INSTRU Med ical mg tablet CTIONS. Branch Take 500 mg day 1, then 250 mg days 2 to 5. simvastatin Yes [id number] 10mg Take 1 Univers 10 mg 1-02 [...] 00 DIRECTED Medical Branch Insulin 2017- Yes [id number] Use as Uni vers [place], 0-01 directed ity of Disposable, 00:00: [place] (MARK PEN 00 Medical NEEDLE) 32 Branch gauge x 5/32" Ndle Insulin 2017- Yes [id number] Use as Uni vers [place], 0-01 directed ity of Disposable, 00:00: [place] [...] [place] 00 QID Medical Branch ergocalcife Yes [id number] 00352Q Take 1 Univers rol, 1-09 capsule by ity of vitamin d2, 00:00: mouth [place] (VITAMIN 00 weekly. Medical D2) 50,000 Branch unit capsule ergocalcife Yes [id number] Take 1 Univers rol, 1-09 capsule by [...] 00:00: DAILY Hospita 00 l buPROPion Yes TAKE 1 Univer s XL 150 mg 4-25 TABLET ity of 24 hr 00:00: DAILY [place] tablet 00 [facility] buPROPion Yes TAKE 1 Univer s XL 150 mg 4-25 TABLET ity of 24 hr 00:00: DAILY [place] tablet 00 [facility] buPROPion Yes [id number] TAKE 1 M ethodi XL 4-[address] (WELLBUTRIN 00:00: DAILY Hospi ta XL) 150 MG 00 l 24 hr tablet nystatin Yes APPLY Methodi (MYCOSTATIN 4-[address] ) 100,000 00:00: TWICE A Hospi ta unit/gram 00 DAY l cream benzonatate Yes 100mg Q.[id number] Take 1 Methodi (TESSALON) 3-[id number] 100 MG 00:00: 3D (100 [...] 1-01 TABLET ity of tablet 00:00: DAILY [address] amLODIPine 2015-11 Yes TAKE 1 Unive rs 10 mg 1-01 TABLET ity of tablet 00:00: DAILY [address] amLODIPine 2015-11 Yes TAKE 1 Metho di (NORVASC) 1-[address] 10 MG 00:00: DAILY Hospita tablet 00 l pen needle, Yes [id number] Use once Methodi diabetic 31 08-[address] gauge x 00:00: lantus pen Hosp patti 04/12" 00 l needle lancets Yes [id number] BID Metho di misc 08-[address] 00:00: Hospita 00 l FREESTYLE Yes USE Method i FREEDOM 1-[address] LITE kit 00:00: TWICE A Hospit a DAY. l Lantus Lantus Yes Yao inject [address] [facility] Solo[facility]ics Gabapentin Gabapentin Yes Yao [address] [facility] Simvastatin Simvastatin Yes Yao [address] [facility] [facility] in the [facility] evening [facility] l [facility] ent [facility] Amlodipine Amlodipine Yes Yao [address] Besylate Besylate [facility]ics Trulicity Trulicity Yes Yao as [facility] directed [facility] Aspirin Aspirin Yes Yao [address] Adult Adult [facility] Gabapentin Gabapentin Yes Yao TAKE [address] [facility] [facility] CAPSULE [facility]ukes - TWICE A Memoria DAY l [facility]ics Metformin Metformin Yes Yao [address] HCl HCl [facility] with a [facility] - meal [facility] l [facility] ent Clinics [facility] Yes Yao 1 tablet [facility] t Allergy Allergy [facility]ics Valsartan Valsartan Yes Yao [address] [facility]ics Immunizations Ordered Filled Immunization Date Status Comments [facility] e Immunization Name Name Afluria single dose Afluria single dose 2019-08-[address] [facility] [facility] Influenza, 2015-08-27 Completed [facility] 00:00:00 Hospital Tdap 2011-11-28 Completed [facility] 00:00:00 Hospital Procedures This patient has no known procedures. Plan of Care Planned Activity Planned Date Details Comments Source Future Scheduled Test 65+ PNEUMOCOCCAL [facility] VACCINE (1 of 1 - PPSV23) [code = 65+ PNEUMOCOCCAL VACCINE (1 of 1 - PPSV23)] Future Scheduled Test INFLUENZA VACCINE [code [facility] = INFLUENZA VACCINE] Future Scheduled Test COVID-19 VACCINE (1) [facility] [code = COVID-19 VACCINE (1)] Future Scheduled Test Screening for malignant [facility] neoplasm of cervix (procedure) [code = 271240701] Future Scheduled Test COLONOSCOPY SCREENING [facility] [code = COLONOSCOPY SCREENING] Future Scheduled Test SHINGLES VACCINES (#1) [facility] [code = SHINGLES VACCINES (#1)] Future Scheduled Test BREAST CANCER SCREENING [facility] [code = BREAST CANCER SCREENING] Encounters Start End Encounter Admission Attending Care Care Encounter Source Date/Time Date/Time Type Type Clinicians Facility Department ID 2021-04-10 2021-04-10 Outpatient [facility] [id number] [facility] 2021-01-21 2021-01-21 Outpatient [facility] [id number] 2021-01-19 2021-01-19 Outpatient [facility] [id number] [facility] 2021-01-05 2021-01-05 Outpatient [facility] [id number] [facility] 2021-01-05 2021-01-05 Outpatient [facility] [id number] [facility] 2020-10-06 2020-10-06 Outpatient [facility] [id number] [facility] 2020-09-16 2020-09-16 Outpatient [facility] [id number] [facility] 2020-07-28 2020-07-28 [facility] [id number] 10:15:00 10:15:00 t [employer] [facility] Medicine l Medicine Outpati ent Clinics 2020-07-03 2020-07-03 [facility] [id number] 13:15:00 13:15:00 t [employer] [facility] l Medicine Outpati ent Clinics 2020-06-03 2020-06-03 [facility] [id number] 08:10:00 08:10:00 t [employer] [facility] Medicine Outpati ent Clinics 2020-04-02 2020-04-02 [facility] [id number] 14:30:00 14:30:00 t [employer] [facility] Medicine Outpati ent Clinics 2020-03-19 2020-03-19 [facility] [id number] 16:00:00 16:00:00 t [employer] [facility] Medicine Outpati ent Clinics 2020-03-18 2020-03-18 [facility] [id number] 10:06:00 10:06:00 t [employer] [facility] Medicine Medicine Outpati ent Clinics 2020-02-19 2020-02-19 [facility] [id number] 10:31:00 10:31:00 t [employer] [facility] Medicine Outpati ent Clinics 2020-02-14 2020-02-14 [facility] [id number] 11:00:00 11:00:00 [employer] [facility] Medicine Outpati ent Clinics 2020-02-14 2020-02-14 [facility] [id number] 09:52:00 09:52:00 [employer] [facility] [employer] [facility] Medicine Outpati ent Clinics 2020-01-25 2020-01-25 [facility] [id number] 10:49:00 10:49:00 t Panvidea s - Drive [facility] Medicine Outpati ent Clinics 2020-01-12 2020[facility]01-12 [facility] [id number] 00:00:00 00:00:00 Deandra Thompson [id number] Aure[place] [id number] Professio [phone] nal 220 Building 2020-01-12 2020-01-12 [facility] [id number] Univers 00:00:00 00:00:00 Deandra Thompson [id number] i ty of Aure[place] [id number] [place] Profess[place] [phone] Me dical nal 220 Branch Building 2019-12-25 2019-12-25 [facility] [id number] 09:30:00 09:30:00 t Kyaw [facility] 2019-11-30 2019-11-30 [facility] [id number] 08[facility]30:00 08:30:00 t Panv[employer] s - Drive [facility] Medicine Outpati ent Clinics 2019-11-16 2019-11-16 [facility] [id number] 15:35:00 15:35:00 t [place] [employer]cean s - Drive [facility] Medicine Outpati ent Clinics 2019-11-01 2019-11-01 [facility] [id number] 10:00:00 10:00:00 t [place] [employer] s - Drive [facility] Medicine Outpati ent Clinics 2019-10-31 2019-10-31 [facility] [id number] 09:59:00 09:59:00 t Panvidea s - Drive [facility] Medicine Outpati ent Clinics 2019-08-28 2019-08-28 [facility] [id number] 09:51:00 09:51:00 t [employer] [facility] Outpati ent Clinics 2019-08-27 2019-08-27 Outpatient Tosin Leahyt [id number] 09:46:00 09:46:00 t [employer] [facility] 2019-08-22 2019-08-22 Outpatient Tosin Leahyt [id number] [facility] [facility] St 08:15:00 08:15:00 t [employer] [facility] Clin[facility] Results This patient has no known results.
--- NOTE | 2021-10-28 17:45 | RAD REPORT ---
EXAM DESCRIPTION: CT - C Spine Wo Con - 10/28/2021 5:10 pm CLINICAL HISTORY: Neck pain COMPARISON: None. TECHNIQUE: Computed axial tomography of the cervical spine were obtained with sagittal and coronal r econstruction images generated and reviewed. All CT scans are performed using dose optimization technique as appropriate and may include automated exposure control or mA/KV adjustment according to patient size. FINDINGS: A cervical fracture is not seen. No dislocation No high-grade central/foraminal stenosis is noted. Possible small right posterolateral disc herniation C3-4. Prominent disc bulge and osteophytes C6-7. IMPRESSION: A cervical fracture is not seen. Possible small right posterolateral disc herniation C3-4. No high-grade central/foraminal stenosis is seen. If the patient continues have symptoms to suggest spinal cord/spinal canal pathology then MRI would b e recommended.
[2021-10-28] MEDS ORDERED: NA CHLORIDE 0.9% 1,000 ML ONE (17:49)
[2021-10-28] MEDS ORDERED: NA CHLORIDE 0.9% 100 ML ONE (17:50)
[2021-10-28] MEDS ORDERED: CEFTRIAXONE 1000 MG/VIAL ONE (17:50)
[2021-10-28] MEDS ORDERED: Levofloxacin 750mg IV 750 MG/150 ML BAG IV ONE (17:50)
[2021-10-28 18:15] LABS: Absolute Lymphocytes (CBC) 3.8 K/uL (0.7-4.9); Hematocrit 37.8 % (36.0-45.0); Lymphocytes % 24.9 % (15.3-44.8); MPV 7.6 fL (7.6-11.3)
[2021-10-28] MEDS ORDERED: D50W 25 GM/50 ML SYRINGE IV ONE (18:21)
[2021-10-28 18:35] LABS: ALT/SGPT 15 U/L (12-78); AST/SGOT 11 U/L (15-37); Albumin 3.2 g/dL (3.4-5.0); Alkaline Phosphatase 93 U/L (45-117); BUN Blood Urea Nitrogen 10 mg/dL (7-18); Bicarbonate 27 mmol/L (21-32); Bilirubin Total 0.2 mg/dL (0.2-1.0); Glucose Level 51 mg/dL (74-106); Potassium 3.6 mmol/L (3.5-5.1); Protein, Total 7.7 g/dL (6.4-8.2); Sodium Level 142 mmol/L (136-145)
[2021-10-28] MEDS ORDERED: DIAZEPAM 5 MG TABLET ONE (18:46)
[2021-10-28] MEDS ORDERED: dexAMETHasone 10 MG/ML VIAL ONE (18:47)
[2021-10-28] MEDS ORDERED: KETOROLAC 30 MG/ML INJ ONE (18:47)
--- NOTE | 2021-10-28 19:17 | RAD REPORT ---
EXAM DESCRIPTION: CT - Head Brain Wo Cont - 10/28/2021 7:01 pm CLINICAL HISTORY: Headache COMPARISON: None. TECHNIQUE: Computed axial tomography of the head was obtained. IV contrast was not requested. All CT scans are performed using dose optimization technique as appropriate and may include automated exposure control or mA/KV adjustment according to patient size. FINDINGS: An intracranial bleed is not seen . The ventricles are normal in caliber. No extra-axial fluid collection is noted. Fluid within the sinuses/ mastoids is not seen. IMPRESSION: No acute intracranial abnormality is seen. If patient's symptoms persist MRI of the bra in would be recommended.
[2021-10-28 19:42] LABS: Urine Blood Negative (Negative); Urine Glucose Negative (Negative); Urine Protein Negative (Negative); Urine Specific Gravity >=1.030 (1.005-1.030); Urine pH 5.5 (5.0-7.0)
--- NOTE | 2021-10-28 19:51 | RAD REPORT ---
EXAM DESCRIPTION: MRI - C Spine Wo Cont - 10/28/2021 7:25 pm CLINICAL HISTORY: Neck pain and radiculopathy COMPARISON: CT cervical spine October 28, 2021 TECHNIQUE: Magnetic resonance imaging of the cervical spine was obtained with coronal and sagittal r econstruction FINDINGS: C2-3 unremarkable Mild spondylosis C3-4. No disc herniation. Thecal sac measures 9 millimeters. Calcification of the right ligamentum flavum C4-5. This in combination with disc bulge and osteophyte s result in narrowing of the thecal sac to 7.5 millimeters. Mild narrowing of the right neural forami na Mild spondylosis C5-6. Disc bulge, osteophytes C6-7. Small left paracentral disc herniation. There is compression upon the l eft anterior aspect of the thecal sac. Thecal sac measures 6 millimeters. C7-T1 unremarkable Small vague area of increased signal within the lower cervical spinal cord probably artifact rather t mireles pathology. No significant abnormal signal within the bones IMPRESSION: Spondylosis and small left paracentral disc herniation C6-7 resulting in moderate centra l spinal stenosis Spondylosis C4-5 resulting in mild to moderate central spinal stenosis
--- NOTE | 2021-10-28 20:28 | EDPHYS ---
Physician Documentation [facility] Name: Jazlyn Granados Age: 66 yrs Sex: Female : 1955 Arrival Date: 10/28/2021 Time: 14:57 Bed 2 Private MD: Bubba Velez V ED Physician Bill Castro HPI: 10/28 18:41 This 66 yrs old Female presents to ER via Ambulatory with complaints of Stiff heladio Neck. 18:41 The patient or guardian complains of decreased range of motion, pain. The symptoms are heladio located at the C1 and C2. Onset: The symptoms/episode began/occurred 1 day(s) ago. Context: The problem was sustained at an unknown location. Associated signs and symptoms: Pertinent positives: headache. The pain does not radiate. Modifying factors: The symptoms are alleviated by nothing. Severity of symptoms: At their worst the symptoms were moderate, earlier today, in the emergency department the symptoms are unchanged. Historical: - Allergies: 15:57 Lisinopril; vg1 - Home Meds: 15:57 amlodipine 10 mg tab 1 tab once daily [Active]; bupropion HCl 150 mg Oral Tb24 1 tab vg1 once daily [Active]; glimepiride 4 mg Oral tab 1 tab once daily [Active]; Insulin Glargine Sub-Q [Active]; metformin 1,000 mg Oral tr24 1 tab twice a day [Active]; simvastatin 10 mg Oral tab 1 tab once daily [Active]; losartan oral [Active]; - PMHx: 15:57 Anxiety; Depression; Diabetes - IDDM; Hyperlipidemia; Hypertension; vg1 - PSHx: 15:57 Right hand; vg1 - Immunization history:: Client reports having NOT received the Covid vaccine. - Social history:: Smoking status: Patient denies any tobacco usage or history of. - Family history:: not pertinent. ROS: 18:41 Constitutional: Negative for fever, chills, and weight loss, Eyes: Negative for injury, heladio pain, redness, and discharge, ENT: Negative for injury, pain, and discharge, Cardiovascular: Negative for chest pain, palpitations, and edema, Respiratory: Negative for shortness of breath, cough, wheezing, and pleuritic chest pain, Abdomen/GI: Negative for abdominal pain, nausea, vomiting, diarrhea, and constipation, Back: Negative for injury and pain, : Negative for injury, bleeding, discharge, and swelling, MS/Extremity: Negative for injury and deformity, Skin: Negative for injury, rash, and discoloration, Neuro: Negative for headache, weakness, numbness, tingling, and seizure, Psych: Negative for depression, anxiety, suicide ideation, homicidal ideation, and hallucinations, Allergy/Immunology: Negative for hives, rash, and allergies, Endocrine: Negative for neck swelling, polydipsia, polyuria, polyphagia, and marked weight changes, Hematologic/Lymphatic: Negative for swollen nodes, abnormal bleeding, and unusual bruising. 18:41 Neck: Positive for pain with movement, pain at rest, stiffness, PAIN WITH LEFT AND RIGHT, LESS WITH FLEX AND EXTENTION. Exam: 18:41 Constitutional: This is a well developed, well nourished patient who is awake, alert, heladio and in no acute distress. Head/Face: Normocephalic, atraumatic. Eyes: Pupils equal round and reactive to light, extra-ocular motions intact. Lids and lashes normal. Conjunctiva and sclera are non-icteric and not injected. Cornea within normal limits. Periorbital areas with no swelling, redness, or edema. ENT: Nares patent. No nasal discharge, no septal abnormalities noted. Tympanic membranes are normal and external auditory canals are clear. Oropharynx with no redness, swelling, or masses, exudates, or evidence of obstruction, uvula midline. Mucous membranes moist. Chest/axilla: Normal chest wall appearance and motion. Nontender with no deformity. No lesions are appreciated. Cardiovascular: Regular rate and rhythm with a normal S1 and S2. No gallops, murmurs, or rubs. Normal PMI, no JVD. No pulse deficits. Respiratory: Lungs have equal breath sounds bilaterally, clear to auscultation and percussion. No rales, rhonchi or wheezes noted. No increased work of breathing, no retractions or nasal flaring. Abdomen/GI: Soft, non-tender, with normal bowel sounds. No distension or tympany. No guarding or rebound. No evidence of tenderness throughout. Back: No spinal tenderness. No costovertebral tenderness. Full range of motion. Female : Normal external genitalia. Skin: Warm, dry with normal turgor. Normal color with no rashes, no lesions, and no evidence of cellulitis. MS/ Extremity: Pulses equal, no cyanosis. Neurovascular intact. Full, normal range of motion. Neuro: Awake and alert, GCS 15, oriented to person, place, time, and situation. Cranial nerves II-XII grossly intact. Motor strength 5/5 in all extremities. Sensory grossly intact. Cerebellar exam normal. Normal gait. Psych: Awake, alert, with orientation to person, place and time. Behavior, mood, and affect are within normal limits. Vital Signs: 15:54 BP 120 / 74; Pulse 93; Resp 16; Temp 97.9; Pulse Ox 97% ; Weight 70.31 kg; Height 4 ft. vg1 11 in. (149.86 cm); Pain 10/10; 18:20 BP 138 / 58; Pulse 88; Resp 20; Pulse Ox 98% on R/A; jg9 19:56 BP 122 / 59; Pulse 81; Resp 18; Pulse Ox 94% on R/A; df1 15:54 Body Mass Index 31.31 (70.31 kg, 149.86 cm) vg1 MDM: 16:39 Patient medically screened. heladio 18:45 Differential diagnosis: arthritis, bacterial meningitis, Cervical Disc Herniation heladio Cervical Raiculopathy Cervical Spondylosis cervical strain, Degenerative Disc Disease Neck Contusion Osteoarthritis torticollis. Data reviewed: vital signs, nurses notes, lab test result(s), EKG, radiologic studies, CT scan. Data interpreted: cardiac monitor: rate is 88 beats/min, rhythm is regular, Pulse oximetry: on room air is 98 %. Test interpretation: by ED physician or midlevel provider: ECG. Counseling: I had a detailed discussion with the patient and/or guardian regarding: the historical points, exam findings, and any diagnostic results supporting the discharge/admit diagnosis, lab results, radiology results, the need for further work-up and treatment in the hospital. 20:08 ED course: MRI with some central herniation but no acute cord compression. Patient 8 remains hemodynamically stable. Mild pain with lateralization of her neck. No Kernig's or Brudzinski sign. No nuchal rigidity. Neck pain most likely that patient has been feeling is secondary to the spinal stenosis. We will have her follow-up with pain management.. 10/28 17:00 Order name: CBC with Diff; Complete Time: 18:30 [facility] 10/28 17:00 Order name: Comprehensive Metabolic Panel; Complete Time: 18:40 [facility] 10/28 18:30 Order name: Glucose, Ancillary Testing; Complete Time: 18:40 [facility] 10/28 18:41 Order name: Sed Rate; Complete Time: 20:33 [facility] 10/28 17:00 Order name: CT C Spine; Complete Time: 18:11 [facility] 10/28 18:40 Order name: CT Head Brain wo Cont; Complete Time: 19:29 [facility] 10/28 18:44 Order name: Urine Culture [facility] 10/28 18:45 Order name: Urine Culture [facility] 10/28 18:50 Order name: C Spine Wo Cont; Complete Time: 19:58 [facility] 10/28 18:53 Order name: Glucose, Ancillary Testing [facility] 10/28 19:42 Order name: Urine Dipstick-Ancillary; Complete Time: 19:58 [facility] 10/28 20:28 Order name: Glucose, Ancillary Testing; Complete Time: 20:33 [facility] 10/28 18:44 Order name: EKG; Complete Time: 18:45 [facility] 10/28 18:44 Order name: EKG - Nurse/Tech; Complete Time: 19:56 [facility] 10/28 18:44 Order name: Urine Dipstick-Ancillary (obtain specimen); Complete Time: 19:43 [facility] 10/28 18:45 Order name: EKG Electrocardiogram; Complete Time: 19:56 EDMS Administered Medications: 18:00 Drug: NS 0.9% 1000 ml Route: IV; Rate: 125 ml/hr; Site: right antecubital; bp 18:25 Drug: D50W 25 ml Route: IVP; Site: right antecubital; jg9 18:50 Drug: Decadron - Dexamethasone 10 mg Route: IVP; Site: left antecubital; jg9 18:51 Drug: Ketorolac 30 mg Route: IVP; Site: left antecubital; jg9 18:56 Drug: Valium (diazepam) 5 mg Route: PO; jg9 Disposition: 10/29 09:13 Co-signature as Attending Physician, Bill Castro MD I agree with the assessment and [facility] plan of care. Disposition Summary: 10/28/21 20:27 Discharge Ordered Location: Home jr8 Problem: new jr8 Symptoms: have improved jr8 Condition: Stable jr8 Diagnosis - Cervicalgia jr8 - Spinal stenosis, cervical region jr8 Followup: jr8 - With: Bubba Velez MD - When: 2 - 3 days - Reason: Recheck today's complaints, Continuance of care, Re-evaluation by your physician Discharge Instructions: - Discharge Summary Sheet jr8 - Musculoskeletal Pain jr8 - Spinal Stenosis jr8 Forms: - Medication Reconciliation Form jr8 - Thank You Letter jr8 - Antibiotic Education jr8 - Prescription Opioid Use jr8 Prescriptions: - Skelaxin 800 mg Oral Tablet - take 1 tablet by ORAL route every 8 hours As needed; 20 tablet; Refills: 0, jr8 Product Selection Permitted Signatures: Dispatcher [employer] EDMS Bill Castro MD MD cha Roszak, Josh, PA PA jr8 Mickey Holliday, RN RN Enma Palacio RN RN vg1 Kasey Gaspar jg9 Corrections: (The following items were deleted from the chart) 10/28 15:59 15:57 Home Meds: valsartan 320 mg Oral tab 1 tab once daily; vg1 vg1
--- NOTE | 2021-10-28 20:28 | ER ---
Nurse's Notes [facility] Name: Jazlyn Granados Age: 66 yrs Sex: Female : 1955 Arrival Date: 10/28/2021 Time: 14:57 Bed 2 Private MD: Bubba Velez V Diagnosis: Cervicalgia;Spinal stenosis, cervical region Presentation: 10/28 15:54 Chief complaint: Patient states: for the past 3 days has had JEET shoulder pain that vg1 radiates to neck and head. States is unable to rotate head to left or right. Denies injury to head. States nausea. Coronavirus screen: Vaccine status: Patient reports being unvaccinated. Ebola Screen: Patient negative for fever greater than or equal to 101.5 degrees Fahrenheit, and additional compatible Ebola Virus Disease symptoms. Initial Sepsis Screen: Does the patient meet any 2 criteria? No. Patient's initial sepsis screen is negative. Does the patient have a suspected source of infection? No. Patient's initial sepsis screen is negative. Risk Assessment: Do you want to hurt yourself or someone else? Patient reports no desire to harm self or others. Onset of symptoms was October 25, 2021. 15:54 Method Of Arrival: Ambulatory vg1 15:54 Acuity: KAELYN 3 vg1 20:19 Note BG 70. Pt given sandwich and fruit cup. Provider at bedside to discuss results. df1 Triage Assessment: 15:57 General: Appears in no apparent distress. uncomfortable, Behavior is calm, cooperative. vg1 Pain: Complains of pain in neck, shoulders and head. Neuro: Level of Consciousness is awake, alert, obeys commands, Oriented to person, place, time, situation, Reports headache. Historical: - Allergies: 15:57 Lisinopril; vg1 - Home Meds: 15:57 amlodipine 10 mg tab 1 tab once daily [Active]; bupropion HCl 150 mg Oral Tb24 1 tab vg1 once daily [Active]; glimepiride 4 mg Oral tab 1 tab once daily [Active]; Insulin Glargine Sub-Q [Active]; metformin 1,000 mg Oral tr24 1 tab twice a day [Active]; simvastatin 10 mg Oral tab 1 tab once daily [Active]; losartan oral [Active]; - PMHx: 15:57 Anxiety; Depression; Diabetes - IDDM; Hyperlipidemia; Hypertension; vg1 - PSHx: 15:57 Right hand; vg1 - Immunization history:: Client reports having NOT received the Covid vaccine. - Social history:: Smoking status: Patient denies any tobacco usage or history of. - Family history:: not pertinent. Screenin:31 Abuse screen: Denies threats or abuse. Nutritional screening: No deficits noted. tw2 Tuberculosis screening: No symptoms or risk factors identified. Fall Risk None identified. Assessment: 18:14 Reassessment: Patient pressed the call button when asked what she needed patient jg9 stated, I feel like my sugar is dropping. . Vital Signs: 15:54 BP 120 / 74; Pulse 93; Resp 16; Temp 97.9; Pulse Ox 97% ; Weight 70.31 kg; Height 4 ft. vg1 11 in. (149.86 cm); Pain 10/10; 18:20 BP 138 / 58; Pulse 88; Resp 20; Pulse Ox 98% on R/A; jg9 19:56 BP 122 / 59; Pulse 81; Resp 18; Pulse Ox 94% on R/A; df1 15:54 Body Mass Index 31.31 (70.31 kg, 149.86 cm) vg1 ED Course: 14:57 Patient arrived in ED. am2 14:57 Bubba Velez MD is Private Physician. am2 15:57 Triage completed. vg1 15:57 Arm band placed on. vg1 16:31 Fabby Richardson, RN is Primary Nurse. tw2 16:31 Patient placed in an exam room, on a stretcher. ll1 16:39 Bill Castro MD is Attending Physician. heladio 17:10 CT C Spine In Process Unspecified. EDMS 18:02 Inserted saline lock: 22 gauge in right antecubital area, using aseptic technique. bp Blood collected. 18:56 Patient Patient going to MRI. jg9 18:59 CT Head Brain wo Cont In Process Unspecified. EDMS 19:21 C Spine Wo Cont In Process Unspecified. EDMS 19:30 Andrew Vilchis PA is PHCP. jr8 19:43 Urine Culture Sent. df1 19:57 Patient has correct armband on for positive identification. Placed in gown. Bed in low df1 position. Call light in reach. Side rails up X 1. pvc monitor on. Pulse ox on. NIBP on. 19:57 No provider procedures requiring assistance completed. df1 20:27 Bubba Velez MD is Referral Physician. jr8 20:59 IV discontinued, intact, bleeding controlled, No redness/swelling at site. Pressure df1 dressing applied. Administered Medications: 18:00 Drug: NS 0.9% 1000 ml Route: IV; Rate: 125 ml/hr; Site: right antecubital; bp 18:25 Drug: D50W 25 ml Route: IVP; Site: right antecubital; jg9 18:50 Drug: Decadron - Dexamethasone 10 mg Route: IVP; Site: left antecubital; jg9 18:51 Drug: Ketorolac 30 mg Route: IVP; Site: left antecubital; jg9 18:56 Drug: Valium (diazepam) 5 mg Route: PO; jg9 Outcome: 20:27 Discharge ordered by MD. jr8 20:59 Discharged to home ambulatory. df1 20:59 Condition: stable 20:59 Discharge instructions given to patient, Instructed on discharge instructions, follow up and referral plans. medication usage, Demonstrated understanding of instructions, follow-up care, medications, Prescriptions given X 1. 20:59 Patient left the ED. df1 Signatures: Dispatcher [employer] EDMS Bill Castro MD MD cha Roszak, Josh, PA PA jr8 Fabby Richardson, RN RN tw2 Shabana Novak amMickey Del Angel RN RN Enma Palacio RN RN vg1 Gerson Monique RN RN Carolin Peterson df1 Kasey Gaspar jg9 Corrections: (The following items were deleted from the chart) 15:57 Home Meds: valsartan 320 mg Oral tab 1 tab once daily; vg1 vg1
[2021-10-28 21:07] VITALS: TEMP 97.9
[2021-10-28 21:09] VITALS: BP 122/59; O2SAT 94
== END 2021-10-28 20:59 | disposition home or self-care (01) ==
LOC: ER 14:56
DX: M48.02 Spinal stenosis, cervical region (principal); F41.8 Other specified anxiety disorders; E11.9 Type 2 diabetes mellitus without complications; E78.5 Hyperlipidemia, unspecified; I10 Essential (primary) hypertension
CPT/HCPCS: 93005; 87088; 85025; 87086; 36415; 82947 ×3; 85652; 81003; 80053; 70450; 72125; 72141; 99284; J1100; J7030

== ENCOUNTER 2022-01-24 09:39 | Emergency (ER) | payer OTHER ==
--- OUTSIDE RECORDS SUMMARY | 2022-01-24 09:42 | XMS REPORT | Continuity of Care Document ---
:1955 Author Organization [facility] t Address [address] [place] [address] Care Team Providers Name Role Phone Estefany Doty MD Primary Care Physician Oscar Attending Clinician Unavailable Alfreda KAUFMAN, Aurelio Attending Clinician Unavailable Payers Payer Name Policy Type Policy Number Effective Date Expiration Date S ource Problems Condition Condition Condition Status Onset Resolution Last Treating Co mments Source Name Details Category Date Date Treatment Clinician Date Vitamin D Vitamin D Disease Active Uni vers deficiency deficiency 1-02 it y of 00:00: [place] 00 [facility] Type 2 Type 2 Disease Active 2016-11 Univers diabetes diabetes 0-04 ity of mellitus mellitus 00:00: [place] without without 00 Medical complicati complicati Br anch on, with on, with long-term long-term current current use of use of insulin insulin Dyslipidem Dyslipidem Disease Active 2016-11 U nivers ia ia 0-04 ity of 00:00: [place] 00 [facility] Branch Essential Essential Disease Active 2016-11 Uni vers hypertensi hypertensi 0-04 it y of on on 00:00: [place] 00 [facility] Branch Osteoarthr Osteoarthr Disease Active M ethodi itis itis 2-10 st 00:00: Hospita 00 l Type 2 Type [...] Date Quantity Comments Source Sex Assigned At [facility] y of [facility] Alcohol intake 2017-01-24 2017-01-24 Current [facility] 00:00:00 00:00:00 non-drinker of alcohol (finding) Smoking Status Start Date Stop Date Source Unknown if ever smoked [facility] Never smoked tobacco [facility] ospital Medications Ordered Filled Start Stop Current Ordering [...] 2020- No Yao [address] [facility] 8 09-04 [facility] a [facility] - 00:00: 00:00 meal Memoria 00 :00 l [facility] Clinics Sure Sure Yes Yao [address] Comfort Pen Comfort Pen 07-04 [facility] Brickeys Brickeys 00:00: Memoria 00 l Outpati ent Clinics VALSARTAN Yes TAKE 1 Univer s 320 mg 4-15 TABLET ity of tablet 00:00: DAILY [place] [facility] VALSARTAN Yes TAKE 1 Univer s 320 mg 4-15 TABLET ity of tablet 00:00: DAILY [place] [facility] Branch METFORMIN Yes [id number] TAKE 1 U nivers 1,000 mg 3-11 TABLET ity of tablet 00:00: TWICE A [place] [facility] METFORMIN Yes [id number] TAKE 1 U nivers 1,000 mg 3-11 TABLET ity of tablet 00:00: TWICE A [place] [facility] TRULICITY Yes [id number] 1.5mg INJECT 1.5 Univers 1.5 mg/0.5 3-01 MG UNDER ity o f mL PnIj 00:00: THE SKIN [place] [facility] Medical Branch TRULICITY Yes [id number] 1.5mg INJECT 1.5 Univers 1.5 mg/0.5 3-01 MG UNDER ity o f mL PnIj 00:00: THE [facility] Medical Branch Insulin Yes [id number] 20U inject 20 Univers Glargine 2-04 Units ity of (LANTUS 00:00: under the [place] [address] skin Medical U-100 daily. Branch INSULIN) 100 unit/mL (3 mL) injection Insulin Yes [id number] 20U inject 20 Univers Glargine 2-04 Units ity of (LANTUS 00:00: under the [place] [address] skin Medical U-100 daily. Branch INSULIN) 100 unit/mL (3 mL) injection ergocalcife Yes Take by Un blaise macario, 1-02 mouth. ity of vitamin D2, 19:08: [place] (VITAMIN D 19 Medical ORAL) Branch ergocalcife Yes Take by Un blaiseanshul macario, 1-02 mouth. ity of vitamin D2, 19:08: [place] (VITAMIN D 19 Medical ORAL) Branch simvastatin 2019-0 Yes [id number] 10mg Take 1 Univers 10 mg 1-02 tablet by ity of tablet 00:00: mouth [place] 00 daily. Medical Branch azithromyci 2019-0 Yes [id number] 250mg Take 1 Univers n 1-02 tablet by ity of (ZITHROMAX 00:00: mouth [place] Z-MELANIE) 250 00 SEE-INSTRU Med ical mg tablet CTIONS. Branch Take 500 mg day 1, then 250 mg days 2 to 5. simvastatin 2019- Yes [id number] 10mg Take 1 Univers 10 mg 1-02 tablet by ity of tablet 00:00: mouth [place] 00 daily. Medical Branch azithromyci Yes [id number] 250mg Take 1 Univers n 1-02 tablet by ity of (ZITHROMAX 00:00: mouth [place] Z-MELANIE) 250 00 SEE-INSTRU Med ical mg tablet CTIONS. Branch Take 500 mg day 1, then 250 mg days 2 to 5. FREESTYLE 2018- Yes USE FOUR Univ ers LITE STRIPS 0-15 TIMES A ity o f strip 00:00: DAY [place] 00 DIRECTED Medical Branch FREESTYLE 2017- Yes USE FOUR Univ ers LITE STRIPS 0-15 TIMES A ity o f strip 00:00: DAY [place] 00 DIRECTED Medical Branch Insulin 2017-1 Yes [id number] Use as Uni vers Brickeys, 0-01 directed ity of Disposable, 00:00: [place] (MARK PEN 00 Medical NEEDLE) 32 Branch gauge x 5/32" Ndle Insulin 2017- Yes [id number] Use as Uni vers Brickeys, 0-01 directed ity of Disposable, 00:00: [place] (MARK PEN 00 Medical NEEDLE) 32 Branch gauge x 5/32" Ndle Blood-Gluco 2017-0 Yes Use as Univ ers se Meter 5-30 directed, ity of (BLOOD 00:00: QID, [place] GLUCOSE 00 DX:E11.9 Medical MONITORING) Branch Kit lancets 33 2017-0 Yes Use as Unive rs gauge Misc [...] [place] 00 QID Medical Branch ergocalcife Yes [id number] 44038J Take 1 Univers rol, 1-09 capsule by ity of vitamin d2, 00:00: mouth [place] (VITAMIN 00 weekly. Medical D2) 50,000 Branch unit capsule ergocalcife Yes [id number] 43935Z Take 1 Univers rol, 1-09 capsule by [...] 24 hr 00:00: DAILY [place] tablet 00 [facility] buPROPion Yes TAKE 1 Univer s XL 150 mg 4-25 TABLET ity of 24 hr 00:00: DAILY [place] tablet 00 [facility] buPROPion Yes [id number] TAKE 1 M ethodi XL 4-[address] (WELLBUTRIN 00:00: DAILY Hospi ta XL) 150 MG 00 l 24 hr tablet nystatin Yes APPLY Methodi (MYCOSTATIN 4-[address] ) 100,000 00:00: TWICE A Hospi ta unit/gram 00 DAY l cream benzonatate Yes 100mg Q.[id number] Take 1 Methodi (TESSALON) 3-[id number] 100 MG 00:00: 3D (100 [...] 10 2-[address] MG tablet 10:01: daily. Hospit a 19 l multivitami Yes 1{tbl} QD Take 1 Me thodi n 2-27 tablet by (THERAGRAN) 10:00: mouth Hospi ta tablet 22 daily. l CYANOCOBALA Yes 1{tbl} QD Take 1 Me thodi MIN, 2-27 tablet by VITAMIN 10:00: mouth Hospita B-12, 22 daily. l (VITAMIN B-12 ORAL) LACTOBACILL Yes 1{capsu QD Take 1 M ethodi US 2-27 le} capsule by ACIDOPHILUS 10:00: mouth Hospi ta (PROBIOTIC 22 daily. l ORAL) fexofenadin Yes 1{tbl} QD Take 1 Me thodi e-pseudoepH 2-27 tablet by EDrine 09:59: mouth Hospita (DAYLIN-D 07 daily. l 24) 180-240 mg per 24 hr tablet naproxen Yes 250mg Q.5D Take 250 Meth dany (NAPROSYN) 2-[address] 250 MG 09:59: mouth 2 Hospita tablet 07 (two) l times a day with meals. traMADol Yes 50mg Q6H Take 50 mg Met hodi (ULTRAM) 50 2-[address] mg tablet 09:34: every 6 Hospi ta 09 (six) l [...] 1-01 TABLET ity of tablet 00:00: DAILY [address] amLODIPine 2015-11 Yes TAKE 1 Unive rs 10 mg 1-01 TABLET ity of tablet 00:00: DAILY [address] amLODIPine 2015-11 Yes TAKE 1 Metho di (NORVASC) 1- TABLET st 10 MG 00:00: DAILY Hospita tablet 00 l pen needle, Yes [id number] Use once Methodi diabetic 31 - daily with st gauge x 00:00: lantus pen Hosp patti 04/12" 00 l needle lancets Yes [id number] BID Metho di misc 08-[address] 00:00: Hospita 00 l FREESTYLE Yes USE Method i FREEDOM 1-[address] LITE kit 00:00: TWICE A Hospit a DAY. l Lantus Lantus Yes Yao inject [address] SoloStar SoloStar [facility] units [facility] ent Clinics Gabapentin Gabapentin Yes Yao [address] [facility] Clinics Simvastatin Simvastatin Yes Yao [address] [facility] in the [facility] - evening Memoria l [facility] ent [facility] Amlodipine Amlodipine Yes Yao [address] Besylate Besylate [facility] ent Clinics Trulicity Trulicity Yes Yao as [facility] directed [facility] Clinics Aspirin Aspirin Yes Yao [address] Adult Adult [facility] Clinics Gabapentin Gabapentin Yes Yao TAKE [address] [facility] [facility] CAPSULE [facility]ukes - TWICE A Memoria DAY l [facility] ent Clinics Metformin Metformin Yes Yao [address] HCl HCl [facility] with a [facility] - meal Memoria l [facility] ent Clinics [facility] Yes Yao 1 tablet [facility] Allergy Allergy [facility] ent Clinics Valsartan Valsartan Yes Yao [address] [facility] Clinics Immunizations Ordered Filled Immunization Date Status Comments [facility] e Immunization Name Name Afluria single dose Afluria single dose 2019-08-[address] [facility] - 00:[facility]00 [facility] Influenza, 2015-08-27 Completed [facility] 00:00:00 Hospital Tdap 2011-11-28 Completed [facility] 00:00:00 Hospital Procedures This patient has no known procedures. Plan of Care Planned Activity Planned Date Details Comments Source Future Scheduled 2022-01-04 COVID-19 VACCINE (1) Met [facility] Test 18:24:49 [code = COVID-19 VACCINE (1)] Future Scheduled 2022-01-04 COLONOSCOPY SCREENING [facility] Test 18:24:49 [code = COLONOSCOPY SCREENING] Future Scheduled 2022-01-04 SHINGLES VACCINES (#1) M [facility] Test 18:24:49 [code = SHINGLES VACCINES (#1)] Future Scheduled 2022-01-04 BREAST CANCER [facility] Test 18:24:49 SCREENING [code = BREAST CANCER SCREENING] Future Scheduled 2022-01-04 65+ PNEUMOCOCCAL [facility] Test 18:24:49 VACCINE (1 of 1 - PPSV23) [code = 65+ PNEUMOCOCCAL VACCINE (1 of 1 - PPSV23)] Future Scheduled 2022-01-04 INFLUENZA VACCINE [facility] Test 18:24:49 [code = INFLUENZA VACCINE] Encounters Start End Encounter Admission Attending Care Care Encounter Source Date/Time Date/Time Type Type Clinicians Facility Department ID 2021-12-23 Outpatient Moore, [facility] [id number] [address] 11:18:59 Yao [id number] [facility] 2021-12-23 Outpatient Moore, [facility] [id number] 11:18:48 Yao [id number] [facility] 2021-12-23 Outpatient Moore, [facility] [id number] 11:16:49 Yao [id number] [facility] 2021-04-10 2021-04-10 Outpatient [facility] [id number] [facility] 2021-01-21 2021-01-21 Outpatient [facility] [id number] [facility] 2021-01-19 2021-01-19 Outpatient [facility] [id number] [facility] 2021-01-05 2021-01-05 Outpatient [facility] [id number] [facility] 2021-01-05 2021-01-05 Outpatient [facility] [id number] [facility] 2020-10-06 2020-10-06 Outpatient [facility] [id number] [facility] 2020-09-16 2020-09-16 Outpatient [facility] [id number] [facility] 2020-07-28 2020-07-28 [facility] [id number] 10:15:00 10:15:[address] Luke s - Drive [facility] l Medicine Outpati ent Clinics 2020-07-03 2020-07-03 [facility] [id number] 13:15:00 13:15:00 t [place] Luke s - Drive [facility] Family Medicine l Medicine Outpati ent Clinics 2020-06-03 2020-06-03 [facility] [id number] 08:10:00 08:10:00 t [place] Luke s - Drive [facility] Family Medicine l Medicine Outpati ent Clinics 2020-04-02 2020-04-02 [facility] [id number] 14:30:00 14:30:[address] Luke s - Drive [facility] Family Medicine l Medicine Outpati ent Clinics 2020-03-19 2020-03-19 [facility] [id number] 16:00:00 16:00:[address] Luke s - Drive [facility] Medicine l Medicine Outpati ent Clinics 2020-03-18 2020-03-18 [facility] [id number] 10:06:00 10:06:00 t [place] [employer] - Xenith [facility] Medicine Outpati ent Clinics 2020-02-19 2020-02-19 [facility] [id number] 10:31:00 10:31:00 t [employer] s - Drive [facility] Medicine Outpati ent Clinics 2020-02-14 2020-02-14 [facility] [id number] 11:00:00 11:00:00 [facility] Road [facility] Medicine Outpati ent Clinics 2020-02-14 2020-02-14 [facility] [id number] 09:52:00 09:52:00 [facility] s [facility] Medicine Outpati ent Clinics 2020-01-25 2020-01-25 [facility] [id number] 10:49:00 10:49:00 [employer] [facility] Medicine Outpati ent Clinics 2020-01-12 2020-01-12 [facility] [id number] Univers 00:00:00 00:00:00 Deandra Thompson [id number] i [place] [id number] Profess[place] [phone] Sc dical nal 220 [facility] 2020-01-12 2020-01-12 [facility] [id number] 00:00:00 00:00:00 Deandra Thompson [id number] [facility] [id number] Professio [phone] [facility] 220 [facility] 2019-12-25 2019-12-25 [facility] [id number] 09:30:00 09:30:00 corrine Kyaw Steiner Kyaw [facility] Medicine Medicine Outpati ent Clinics 2019-11-30 2019-11-30 [facility] [id number] 08:30:00 08:30:00 t [place] [employer] [facility] Medicine Outpati ent Clinics 2019-11-16 2019-11-16 [facility] [id number] 15:35:00 15:35:00 t [place] [employer] [employer] - Drive [facility] Medicine Outpati ent Clinics 2019-11-01 2019-11-01 [facility] [id number] 10:00:00 10:00:00 t [place] [employer] s - Drive [facility] Medicine Outpati ent Clinics 2019-10-31 2019-10-31 [facility] [id number] 09:59:00 09:59:00 t [place] [employer] - Drive [facility] Medicine Outpati ent Clinics 2019-08-28 2019-08-28 [facility] [id number] 09:51:00 09:51:00 t [place] [employer] - Xenith [facility] Medicine Outpati ent Clinics 2019-08-27 2019-08-27 [facility] [id number] 09:46:00 09:46:00 t [place] [employer] - Xenith [facility] Medicine Outpati ent Clinics 2019-08-22 2019-08-22 [facility] [id number] 08:15:00 08:15:00 t [employer] s - Drive [facility] Medicine Outpati ent Clinics Results This patient has no known results.
--- NOTE | 2022-01-24 10:39 | RAD REPORT ---
EXAM DESCRIPTION: RAD - Elbow Right 3 View - 01/24/2022 10:15 am CLINICAL HISTORY: PAIN COMPARISON: No comparisons FINDINGS: No acute fracture. No malalignment. Small ossific density adjacent to the lateral condyles may be related to degenerative changes. It is of doubtful acute clinical significance. IMPRESSION: No acute osseous abnormality involving the right elbow.
--- NOTE | 2022-01-24 11:06 | RAD REPORT ---
EXAM DESCRIPTION: US - UPPER EXTREMITY VENOUS UNILATE - 01/24/2022 10:48 am CLINICAL HISTORY: swelling, pain COMPARISON: UPPER EXTREMITY VENOUS UNILATE dated 07/20/2021 FINDINGS: Color Doppler, grayscale, and spectral analysis was performed. No venous thrombosis in the right IJ, subclavian, axillary, cephalic, brachial, basilic, radial, and ulnar veins. IMPRESSION: No venous thrombosis in the right upper extremity.
[2022-01-24 11:24] VITALS: TEMP 97.1
[2022-01-24 11:26] VITALS: BP 128/66; O2SAT 99
--- NOTE | 2022-01-25 11:21 | ER ---
Nurse's Notes [facility] Name: Jazlyn Granados Age: 66 yrs Sex: Female : 1955 Arrival Date: 01/24/2022 Time: 09:42 Bed 14 Private MD: Bubba Velez V Diagnosis: Lateral epicondylitis, right elbow Presentation: 01/24 10:02 Chief complaint: Patient states: R arm pain since Tuesday. No trauma or fever. ll1 Coronavirus screen: Vaccine status: Patient reports being unvaccinated. Client denies travel out of the [place] in the last 14 days. At this time, the client does not indicate any symptoms associated with coronavirus-19. Ebola Screen: Patient denies travel to an Ebola-affected area in the 21 days before illness onset. Initial Sepsis Screen: Does the patient meet any 2 criteria? No. Patient's initial sepsis screen is negative. Does the patient have a suspected source of infection? No. Patient's initial sepsis screen is negative. Risk Assessment: Do you want to hurt yourself or someone else? Patient reports no desire to harm self or others. Onset of symptoms was January 22, 2022. 10:02 Method Of Arrival: Ambulatory ll1 10:02 Acuity: KAELYN 3 ll1 Triage Assessment: 10:04 General: Appears uncomfortable, Behavior is calm, cooperative, appropriate for age. ll1 Pain: Complains of pain in R arm Quality of pain is described as aching. Musculoskeletal: Circulation, motion, and sensation intact. Capillary refill < 3 seconds, Reports pain in right arm. Historical: - Allergies: 10:02 Lisinopril; ll1 - PMHx: 10:02 Depression; Hypertension; Diabetes - IDDM; Anxiety; Hyperlipidemia; ll1 - PSHx: 10:02 right hand; ll1 - Immunization history:: Client reports having NOT received the Covid vaccine. - Social history:: Smoking status: Patient denies any tobacco usage or history of. Screenin:32 Abuse screen: Denies threats or abuse. Denies injuries from another. Nutritional ab2 screening: No deficits noted. Tuberculosis screening: No symptoms or risk factors identified. Fall Risk None identified. Assessment: 10:30 General: Appears in no apparent distress. comfortable, Behavior is calm, cooperative, ab2 appropriate for age. Pain: Complains of pain in right arm. Neuro: Level of Consciousness is awake, alert, obeys commands, Oriented to person, place, time, situation, Appropriate for age [employer] Work[employer] are equal bilaterally Moves all extremities. Gait is steady, Speech is normal. Cardiovascular: Denies chest pain, shortness of breath, Heart tones S1 S2 present Patient's skin is warm and dry. Respiratory: Airway is patent Respiratory effort is even, unlabored, Respiratory pattern is regular, symmetrical, Breath sounds are clear bilaterally. GI: No deficits noted. No signs and/or symptoms were reported involving the gastrointestinal system. Abdomen is round non-distended. : No deficits noted. No signs and/or symptoms were reported regarding the genitourinary system. EENT: No deficits noted. No signs and/or symptoms were reported regarding the EENT system. Derm: No deficits noted. No signs and/or symptoms reported regarding the dermatologic system. Skin is intact, is healthy with good turgor, Skin is pink, warm \T\ dry. Musculoskeletal: Range of motion: intact in all extremities, Reports pain in right arm. Vital Signs: 10:02 BP 138 / 57; Pulse 87; Resp 17; Temp 97.1; Pulse Ox 100% on R/A; Weight 68.04 kg; ll1 Height 4 ft. 11 in. (149.86 cm); Pain 7/10; 11:20 BP 128 / 66; Pulse 80; Resp 16; Pulse Ox 99% on R/A; ab2 10:02 Body Mass Index 30.30 (68.04 kg, 149.86 cm) ll1 ED Course: 09:42 Patient arrived in ED. mr 09:42 Bubba Velez MD is Private Physician. mr 09:46 [facility] jmm 09:46 Prashant Hall MD is Attending Physician. jmm 09:53 Arm band placed on Patient placed in an exam room, on a stretcher. ll1 10:04 Triage completed. ll1 10:15 Elbow Right 3 View XRAY In Process Unspecified. EDMS 10:30 Kevin Vela is Primary Nurse. ab2 10:32 Patient has correct armband on for positive identification. Bed in low position. Call ab2 light in reach. Side rails up X2. 10:32 No provider procedures requiring assistance completed. ab2 10:48 UPPER EXTREMITY VENOUS UNILATE In Process Unspecified. EDMS 11:08 Denzel Michael MD is Referral Physician. jmm 11:20 Patient did not have IV access during this emergency room visit. ab2 Administered Medications: No medications were administered Outcome: 11:08 Discharge ordered by . jmm 11:20 Discharged to home ambulatory. ab2 11:20 Condition: good 11:20 Discharge instructions given to patient, Instructed on discharge instructions, follow up and referral plans. medication usage, Demonstrated understanding of instructions, follow-up care, medications, Prescriptions given X 1. 11:20 Patient left the ED. ab2 Signatures: Dispatcher [employer] EDMS Casa Young PA PA jmm Rivera, Mary mr Gerson Monique, RN RN ll1 Kevin Vela ab2
--- NOTE | 2022-01-25 11:21 | EDPHYS ---
Physician Documentation [facility] Name: Jazlyn Granados Age: 66 yrs Sex: Female : 1955 Arrival Date: 01/24/2022 Time: 09:42 Bed 14 Private MD: Bubba Velez V ED Physician Prashant Hall HPI: 01/24 09:55 This 66 yrs old Female presents to ER via Ambulatory with complaints of Arm Pain. jmm 09:55 The patient or guardian complains of pain. Onset: The symptoms/episode began/occurred jm acutely, 5 day(s) ago. Treatment prior to arrival includes: no previous treatment. Modifying factors: The symptoms are alleviated by nothing. the symptoms are aggravated by movement, bending arm. Associated signs and symptoms: Pertinent positives: swelling, Pertinent negatives: fever. This is a 66-year-old female with history of depression, hypertension, diabetes mellitus, anxiety, hyperlipidemia that presents emerged part with complaints of right elbow pain which began approximately 3 to 4 days ago Gant to the patient. Patient states having some distal humeral swelling as well. States the pain radiates into the right wrist. States that she had a fall this past Tuesday and which may have caused the pain.. Historical: - Allergies: 10:02 Lisinopril; ll1 - PMHx: 10:02 Depression; Hypertension; Diabetes - IDDM; Anxiety; Hyperlipidemia; ll1 - PSHx: 10:02 right hand; ll1 - Immunization history:: Client reports having NOT received the Covid vaccine. - Social history:: Smoking status: Patient denies any tobacco usage or history of. ROS: 09:55 Constitutional: Negative for fever, chills, and weight loss, Cardiovascular: Negative jmm for chest pain, palpitations, and edema, Respiratory: Negative for shortness of breath, cough, wheezing, and pleuritic chest pain. 09:55 MS/extremity: Positive for pain. 09:55 All other systems are negative. Exam: 09:55 Constitutional: This is a well developed, well nourished patient who is awake, alert, jmm and in no acute distress. Head/Face: atraumatic. Eyes: EOMI, no conjunctival erythema appreciated ENT: Moist Mucus Membranes Neck: Trachea midline, Supple Chest/axilla: Normal chest wall appearance and motion. Cardiovascular: Regular rate and rhythm. No edema appreciated Respiratory: Normal respirations, no respiratory distress appreciated Abdomen/GI: Non distended, soft Back: Normal ROM Skin: General appearance color normal 09:55 Musculoskeletal/extremity: Full range of motion appreciated of the right elbow, pain on palpation of the lateral epicondyles, full radial pulse, full property and supply officer strength, sensation intact, compartments soft, neurovascular intact. 09:55 Skin: Appearance: Color: normal in color. 09:55 Neuro: Orientation: is normal, Mentation: is normal, Memory: is normal, Cranial nerves: 09:55 Psych: Behavior/mood is pleasant, cooperative. Vital Signs: 10:02 BP 138 / 57; Pulse 87; Resp 17; Temp 97.1; Pulse Ox 100% on R/A; Weight 68.04 kg; ll1 Height 4 ft. 11 in. (149.86 cm); Pain 7/10; 11:20 BP 128 / 66; Pulse 80; Resp 16; Pulse Ox 99% on R/A; ab2 10:02 Body Mass Index 30.30 (68.04 kg, 149.86 cm) ll1 MDM: 09:55 Patient medically screened. [facility] 11:07 Data reviewed: vital signs, nurses notes. Counseling: I had a detailed discussion with mayra the patient and/or guardian regarding: the historical points, exam findings, and any diagnostic results supporting the discharge/admit diagnosis, the need for outpatient follow up, to return to the emergency department if symptoms worsen or persist or if there are any questions or concerns that arise at home. 01/24 09:58 Order name: Elbow Right 3 View XRAY; Complete Time: 10:58 [facility] 01/24 10:48 Order name: UPPER EXTREMITY VENOUS UNILATE; Complete Time: 11:06 EDMS Administered Medications: No medications were administered Disposition: 01/25 09:07 Co-signature as Attending Physician, Prashant Hall MD I agree with the assessment and [facility] plan of care. Disposition Summary: 01/24/22 11:08 Discharge Ordered Location: Home [facility] Condition: Stable [facility] Diagnosis - Lateral epicondylitis, right elbow [facility] Followup: [facility] - With: Denzel Michael MD - When: 2 - 3 days - Reason: Recheck today's complaints, Continuance of care, Re-evaluation by your physician Discharge Instructions: - Discharge Summary Sheet jmm - Tennis Elbow jmm Forms: - Medication Reconciliation Form jmm - Thank You Letter jmm - Antibiotic Education jmm - Prescription Opioid Use jm Prescriptions: - orphenadrine citrate 100 mg Oral Tablet Sustained Release - take 1 tablet by ORAL route 2 times per day As needed; 20 tablet; Refills: 0, jmm Product Selection Permitted Signatures: Dispatcher [employer] EDMS Casa Young PA PA jmm Lewis, Lynsay, RN RN ll1 Prashant Hall MD MD [id number] Corrections: (The following items were deleted from the chart) 01/24 10:48 09:59 Extremity Venous [employer]+[email or web address] ordered. EDMS EDMS
== END 2022-01-24 11:20 | disposition home or self-care (01) ==
LOC: ER 09:39
DX: M77.11 Lateral epicondylitis, right elbow (principal); W19.XXXA Unspecified fall, initial encounter; I10 Essential (primary) hypertension; E11.9 Type 2 diabetes mellitus without complications; Z88.8 Allergy status to other drugs, medicaments and biological substances
CPT/HCPCS: 93971; 99283

== ENCOUNTER 2023-04-04 10:29 | Emergency (ER) | payer OTHER ==
--- OUTSIDE RECORDS SUMMARY | 2023-04-04 10:34 | XMS REPORT | Continuity of Care Document ---
:1955 [facility] t Address [address] [place] [address] [place] [id number] Care Team Providers Name Role Phone Lalitha KAUFMAN, Arielle Allison Primary Care Physician [phone] Yao Moore Attending Clinician Unavailable Alfreda KAUFMAN, Deandra Carey Attending Clinician Unavailable Payers Payer Name Policy Type Policy Number Effective Date Expiration Date S olegario [facility] C1 [id number] [facility] MEDICARE MB [id number] [facility] NOVITAS [facility] MEDICARE MB [id number] [facility] N[facility] - [facility] C1 [id number] [facility] - [facility] C1 [id number] [facility] MEDICARE MB [id number] [facility] NOVITAS - [facility] MEDICARE MB [id number] [facility] NOVITAS - [facility] C1 [id number] [facility] - [facility] C1 [id number] [facility] it [facility] MEDICARE MB [id number] [facility] NOVITAS [facility] C1 [id number] [facility] MEDICARE MB [id number] [facility] C1 [id number] [facility] COMPANY [facility] C1 [id number] [facility] Problems Condition Condition Condition Status Onset Resolution Last Treating Co mments Source Name Details Category Date Date Treatment Clinician Date Type 2 Type 2 Disease Active 2016-11 Univers diabetes diabetes 0-04 ity of mellitus mellitus 00:00: [place] without without 00 Medical complicati complicati Br anch on, with on, with long-term long-term current current use of use of insulin insulin Dyslipidem Dyslipidem Disease Active 2016-11 U nivers ia ia 0-04 ity of 00:00: [address] Essential Essential Disease Active 2016-11 Uni vers hypertensi hypertensi 0-04 it y of on on 00:00: [address] HLD HLD Disease Active Methodi (hyperlipi (hyperlipi [...] Neuropathy Neuropathy Disease Active M ethodi 01-07 st 00:00: Hospita 00 l Osteoarthr Osteoarthr Disease Active M ethodi itis itis 01-07 00:00: Hospita 00 l Type 2 Type 2 Disease Active Methodi diabetes diabetes 01-07 st mellitus mellitus 00:00: Hospit a 00 l [id number] Adult BMI Problem Active Com mon 33.0-33.9 Spirit kg/sq [facility] [id number] Mixed Problem Active Common hyperlipid [facility] [id number] Hypomagnes Problem Active Co mmon emia [facility] [id number] Vitamin D Problem Active Comm on deficiency [facility] [id number] steel heater Problem Active Com mon current Spirit use of - [facility] insulin [facility] [id number] Depression Problem Active Co mmon with Spirit anxiety [facility] [id number] Hypercalce Problem Active Com mon quincy [facility] [id number] Seasonal Problem Active Comm on allergies [facility] [id number] Current Problem Active Common moderate Spirit episode of [facility] major [facility] prior episode Allergies, Adverse Reactions, Alerts Allergy Allergy Status Severity Reaction(s) Onset Inactive Treating Comm ents Source Name Type Date Date Clinician Scotty Propensi Active Methodi Inhibito ty to 08-04 rs adverse 00:00: Hospita reaction 00 l s to drug Lisinopr Propensi Active Method i il ty to 08-04 st adverse 00:00: Hospita reaction 00 l s to drug Scotty Propensi Active Methodi Inhibito ty to 08-04 rs adverse 00:00: Hospita reaction 00 l s to drug Social History Social Habit Start Date Stop Date Quantity Comments Source History of Tobacco [facility] - Use [facility] Alcohol intake 2017-01-24 2017-01-24 Current [facility] 00:00:00 00:00:00 non-drinker of Hospital alcohol (finding) History of Social 2016-03-04 2016-03-[address] function 00:00:00 00:00:00 Hospital Sex Ass[birth year] At [birth year] [facility] 00:00:[facility]00 Hospital Smoking Status Start Date Stop Date Source Unknown if ever smoked [facility] Never Smoker Common [facility] Medications Ordered Filled Start Stop Current Ordering Indication Dosage Frequency Signature Comments Components Source Medication Medication Date Date Medication? Clinician (SIG) Name Name Bactrim DS Bactrim DS 2019- 2020- No Yao 1 tablet Common 07-28 [facility] Spirit 00:00: 00:00 - [facility] 00 :00 [facility] Pyridium Pyridium 2019- 2020- No Yao 1 tablet Common 07-28 [facility] after Spirit 00:00: 00:00 meals - CHI 00 :00 [facility] Wellbutrin Wellbutrin 2019-0 Yes Yao 1 tablet Common XL XL 07-03 [facility] in [facility] Spirit 00:00: morning - [facility]I 00 [facility] Wellbutrin Wellbutrin 2019-0 No 1{table QD Wellbutrin XL 300 MG XL 300 MG 07-03 t_in_th XL 300 MG 00:00: e_morni 00 ng} Magnesium Magnesium 2019- No Yao 1 tablet Common 07-02 09 [facility] with a Spirit 00:00: 00:00 meal - CHI 00 :00 [facility] Sure Sure 2019-0 Yes Yao 1 needle Common Comfort Pen Comfort Pen 8 [place] [facility] [place] 00:00: - [facility]I 00 [facility] Sure Sure 2019-0 No Sure Comfort Pen Comfort Pen 8-07 Comfort [place] 32G [place] 32G 00:00: Pen X 4 MM X 4 MM 00 [place] 32G X 4 MM Sure Sure 2019-0 No Sure Comfort Pen Comfort Pen 8-07 [place]fort [place] 32G [place] 32G 00:00: Pen X 4 MM X 4 MM 00 [place] 32G X 4 MM Sure Sure 2019-0 No Sure Comfort Pen Comfort Pen 8-07 Comfort [place] 32G [place] 32G 00:00: Pen X 4 MM X 4 MM 00 [place] 32G X 4 MM Sure Sure 2019-0 No Sure Comfort Pen Comfort Pen 8-07 Comfort [place] 32G [place] 32G 00:00: Pen X 4 MM X 4 MM 00 [place] 32G X 4 MM Sure Sure 2019-0 No Sure Comfort Pen Comfort Pen 8-07 Comfort [place] 32G [place] 32G 00:00: Pen X 4 MM X 4 MM 00 [place] 32G X 4 MM Sure Sure 2019-0 No Sure Comfort Pen Comfort Pen 8-07 Comfort [place] 32G [place] 32G 00:00: Pen X 4 MM X 4 MM 00 [place] 32G X 4 MM Sure Sure 2019-0 No Sure Comfort Pen Comfort Pen 8-07 Comfort [place] 32G [place] 32G 00:00: Pen X 4 MM X 4 MM 00 [place] 32G X 4 MM VALSARTAN 2018-0 Yes TAKE 1 Univer s 320 mg 4-15 TABLET ity of tablet 00:00: DAILY [address] VALSARTAN 2018-0 Yes TAKE 1 Univer s 320 mg 4-15 TABLET ity of tablet 00:00: DAILY [place] [facility] METFORMIN 2018- Yes [id number] TAKE 1 U nivers 1,000 mg 3-11 TABLET ity of tablet 00:00: TWICE A [place] DAY Medical Branch METFORMIN Yes [id number] TAKE 1 U nivers 1,000 mg 3-11 TABLET ity of tablet 00:00: TWICE A [place] [facility] TRULICITY Yes [id number] 1.5mg INJECT 1.5 Univers 1.5 mg/0.5 3-01 MG UNDER ity o f mL PnIj 00:00: THE [facility] Medical Branch TRULICITY Yes [id number] 1.5mg INJECT 1.5 Univers 1.5 mg/0.5 3-01 MG UNDER ity o f mL PnIj 00:00: THE [facility] Branch Insulin Yes [id number] 20U inject 20 Univers Glargine 2-04 Units ity of (LANTUS 00:00: under the [address] Medical U-100 daily. Anza INSULIN) 100 unit/mL (3 mL) injection Insulin Yes [id number] 20U inject 20 Univers Glargine 2-04 Units ity of (LANTUS 00:00: under the [place] [address] skin Medical U-100 daily. Anza INSULIN) 100 unit/mL (3 mL) injection ergocalcife Yes Take by Uni vers rol, 1-02 mouth. ity of vitamin D2, 19:08: [place] (VITAMIN D 19 Medical ORAL) Branch ergocalcife Yes Take by Uni vers rol, 1-02 mouth. ity of vitamin D2, 19:08: [place] (VITAMIN D 19 Medical ORAL) Anza azithromyci Yes [id number] 250mg Take 1 Univers n 1-02 tablet by ity of (ZITHROMAX 00:00: mouth [place] Z-MELANIE) 250 00 SEE-INSTRU Med ical mg tablet CTIONS. Branch Take 500 mg day 1, then 250 mg days 2 to 5. simvastatin Yes [id number] 10mg Take 1 Univers 10 mg 1-02 tablet by ity of tablet 00:00: mouth [place] daily. Medical Branch azithromyci Yes [id number] 250mg Take 1 Univers n 1-02 tablet by ity of (ZITHROMAX 00:00: mouth [place] Z-MELANIE) 250 00 SEE-INSTRU Med ical mg tablet CTIONS. Branch Take 500 mg day 1, then 250 mg days 2 to 5. simvastatin Yes [id number] 10mg Take 1 Univers 10 mg 1-02 tablet by ity of tablet 00:00: mouth [place] 00 daily. Medical Branch FREESTYLE 2017-11 Yes USE FOUR Univ ers LITE STRIPS 0-15 TIMES A ity o f strip 00:00: DAY [place] 00 DIRECTED Medical Branch FREESTYLE 2017-11 Yes USE FOUR Univ ers LITE STRIPS 0-15 TIMES A ity o f strip 00:00: DAY [place] 00 DIRECTED Medical Branch Insulin 2017-11 Yes [id number] Use as Uni vers [place], 0-01 directed ity of Disposable, 00:00: [place] (MARK PEN 00 Medical NEEDLE) 32 Branch gauge x 5/32" Ndle Insulin 2017-11 Yes [id number] Use as Uni vers [place], 0-01 directed ity of Disposable, 00:00: [place] (MARK PEN 00 Medical NEEDLE) 32 Branch gauge x 5/32" Ndle Blood-Gluco Yes Use as Univ ers se Meter 5-30 directed, ity of (BLOOD 00:00: [facility], [place] GLUCOSE 00 DX:E11.9 Medical MONITORING) Branch Kit lancets 33 Yes Use as Unive rs gauge Misc 5-30 directed, ity of 00:00: Dx:E11.9, [place] 00 QID Medical Branch Blood-Gluco Yes Use as Univ ers se Meter 5-30 directed, ity of (BLOOD 00:00: QID, [place] GLUCOSE 00 DX:E11.9 Medical MONITORING) Branch Kit lancets 33 Yes Use as Unive rs gauge Misc 5-30 directed, ity of 00:00: Dx:E11.9, [place] 00 QID Medical Branch ergocalcife Yes [id number] Take 1 Univers rol, 1-09 capsule by ity of vitamin d2, 00:00: mouth [place] (VITAMIN 00 weekly. Medical D2) 50,000 Branch unit capsule ergocalcife Yes [id number] Take 1 Univers rol, 1-09 capsule by ity of vitamin d2, 00:00: mouth [place] (VITAMIN 00 weekly. Medical D2) 50,000 Branch unit capsule simvastatin Yes TAKE 1 Meth dany (ZOCOR) 10 6-[address] MG tablet 00:00: DAILY Hospita l simvastatin Yes TAKE 1 Meth dany (ZOCOR) 10 6-[address] MG tablet 00:00: DAILY Hospita l simvastatin Yes TAKE 1 Meth dany (ZOCOR) 10 6-[address] MG tablet 00:00: DAILY Hospita l simvastatin Yes TAKE 1 Meth dany (ZOCOR) 10 6-[address] MG tablet 00:00: DAILY Hospita l glimepiride Yes TAKE 1 Meth dany (AMARYL) 4 5-[address] MG tablet 00:00: DAILY Hospita glimepiride Yes TAKE 1 Meth dany (AMARYL) 4 5-[address] MG tablet 00:00: DAILY Hospita glimepiride Yes TAKE 1 Meth dany (AMARYL) 4 5-[address] MG tablet 00:00: DAILY Hospita glimepiride Yes TAKE 1 Meth dany (AMARYL) 4 5-[address] MG tablet 00:00: DAILY Hospita JARDIANCE Yes TAKE 1 Method i 25 mg 5-[address] tablet 00:00: DAILY Hospita JARDIANCE Yes TAKE 1 Method i 25 mg 5-[address] tablet 00:00: DAILY Hospita JARDIANCE Yes TAKE 1 Method i 25 mg 5-[address] tablet 00:00: DAILY Hospita JARDIANCE Yes TAKE 1 Method i 25 mg 5-[address] tablet 00:00: DAILY Hospita buPROPion Yes TAKE 1 Univer s XL 150 mg 4-25 TABLET ity of 24 hr 00:00: DAILY [place] tablet [facility] buPROPion Yes TAKE 1 Univer s XL 150 mg 4-25 TABLET ity of 24 hr 00:00: DAILY [place] tablet [facility] buPROPion Yes [id number] TAKE 1 M ethodi XL 4-[address] (WELLBUTRIN 00:00: DAILY Hospi ta XL) 150 MG 00 l 24 hr tablet nystatin Yes APPLY Methodi (MYCOSTATIN 4-[address] ) 100,000 00:00: TWICE A Hospi ta unit/gram 00 DAY l cream buPROPion Yes [id number] TAKE 1 M ethodi XL 4-[address] (WELLBUTRIN 00:00: DAILY Hospi ta XL) 150 MG 00 l 24 hr tablet nystatin Yes APPLY Methodi (MYCOSTATIN 4-[address] ) 100,000 00:00: TWICE A Hospi ta unit/gram 00 DAY l cream buPROPion Yes [id number] TAKE 1 M ethodi XL 4-[address] (WELLBUTRIN 00:00: DAILY Hospi ta XL) 150 MG 00 l 24 hr tablet nystatin Yes APPLY Methodi (MYCOSTATIN 4-[address] ) 100,000 00:00: TWICE A Hospi ta unit/gram 00 DAY l cream buPROPion Yes [id number] TAKE 1 M ethodi XL 4-[address] (WELLBUTRIN 00:00: DAILY Hospi ta XL) 150 MG 00 l 24 hr tablet nystatin Yes APPLY Methodi (MYCOSTATIN 4-[address] ) 100,000 00:00: TWICE A Hospi ta unit/gram 00 DAY l cream benzonatate Yes 100mg Q.[id number] Take 1 Methodi (TESSALON) 3-[id number] 100 MG 00:00: 3D (100 mg Hospita capsule 00 total) by l mouth 3 (three) times a day as needed for cough. benzonatate 0 Yes 100mg Q.[id number] Take 1 Methodi (TESSALON) 3-[id number] 100 MG 00:00: 3D (100 mg Hospita capsule 00 total) by l mouth 3 (three) times a day as needed for cough. benzonatate 0 Yes 100mg Q.[id number] Take 1 Methodi (TESSALON) 3-[id number] 100 MG 00:00: 3D (100 mg Hospita capsule 00 total) by l mouth 3 (three) times a day as needed for cough. benzonatate 2017-0 Yes 100mg Q.[id number] Take 1 Methodi (TESSALON) 3-[id number] 100 MG 00:00: 3D (100 [...] mg 00:00: TWICE A Hosp patti tablet DAY l FREESTYLE Yes USE TO Method i LITE STRIPS 3-[address] strip test 00:00: A DAY Hospit a strips 00 l metFORMIN Yes TAKE 1 Method i (GLUCOPHAGE 3-[address] ) 1,000 mg 00:00: TWICE A Hosp patti tablet DAY l FREESTYLE Yes USE TO Method [...] TAKE 1 Method i (GLUCOPHAGE 3-03 TABLET ) 1,000 mg 00:00: TWICE A Hosp [...] 180-240 mg per 24 hr tablet naproxen 2017-0 Yes 250mg Q.5D Take 250 Meth dany (NAPROSYN) 2-[address] 250 MG 15:59: mouth 2 Hospita tablet 07 (two) l times a day with meals. fexofenadin 2017-0 Yes 1{tbl} QD Take 1 Me thodi e-pseudoepH 2-[address] EDrine 15:59: mouth Hospita (DAYLIN-D 07 daily. l 24) 180-240 mg per 24 hr tablet naproxen 2017-0 Yes 250mg Q.5D Take 250 Meth dany (NAPROSYN) 2-[address] 250 MG 15:59: mouth 2 Hospita tablet 07 (two) l times a day with meals. traMADol 2017-0 Yes 50mg Q6H Take 50 mg Met hodi (ULTRAM) 50 2-[address] mg tablet 15:34: every 6 Hospi ta 09 (six) l hours as needed for moderate pain. traMADol 2017-0 Yes 50mg Q6H Take 50 mg Met hodi (ULTRAM) 50 2-[address] mg tablet 15:34: every 6 Hospi ta 09 (six) l hours as needed for moderate pain. cetirizine [id number] Yes 10mg QD Take 10 mg M ethodi (ZyrTEC) 10 2-[address] MG tablet 10:01: daily. Hospit a 19 l cetirizine [id number] Yes 10mg QD Take 10 mg M ethodi (ZyrTEC) 10 2-[address] MG tablet 10:01: daily. Hospit a 19 l multivitami 2017-0 Yes 1{tbl} QD Take 1 Me thodi n 2-[address] (THERAGRAN) 10:00: mouth Hospi ta tablet 22 daily. l CYANOCOBALA 2017-0 Yes 1{tbl} QD Take 1 Me thodi MIN, 2-[address] VITAMIN 10:00: mouth Hospita B-12, 22 daily. l (VITAMIN B-12 ORAL) LACTOBACILL 2017-0 Yes 1{capsu QD Take 1 M ethodi US 2-27 le} capsule by st ACIDOPHILUS 10:00: mouth Hospi ta (PROBIOTIC 22 daily. l ORAL) multivitami 2017-0 Yes 1{tbl} QD Take 1 Me thodi n 2-[address] (THERAGRAN) 10:00: mouth Hospi ta tablet 22 daily. l CYANOCOBALA 2017-0 Yes 1{tbl} QD Take 1 Me thodi MIN, 2-[address] VITAMIN 10:00: mouth Hospita B-12, 22 daily. l (VITAMIN B-12 ORAL) LACTOBACILL 2017-0 Yes 1{capsu QD Take 1 M ethodi US 2-27 le} capsule by st ACIDOPHILUS 10:00: mouth Hospi ta (PROBIOTIC 22 daily. l ORAL) fexofenadin 2017-0 Yes 1{tbl} QD Take 1 Me thodi e-pseudoepH 2-[address] EDrine 09:59: mouth Hospita (DAYLIN-D 07 daily. l 24) 180-240 mg per 24 hr tablet naproxen 2017-0 Yes 250mg Q.5D Take 250 Meth dany (NAPROSYN) 2-[address] 250 MG 09:59: mouth 2 Hospita tablet 07 (two) l times a day with meals. fexofenadin 2017- Yes 1{tbl} QD Take 1 Me thodi e-pseudoepH 2-[address] EDrine 09:59: mouth Hospita (DAYLIN-D 07 daily. l 24) 180-240 mg per 24 hr tablet naproxen 2017-0 Yes 250mg Q.5D Take 250 Meth dany (NAPROSYN) 2-[address] 250 MG 09:59: mouth 2 Hospita tablet 07 (two) l times a day with meals. traMADol 2017-0 Yes 50mg Q6H Take 50 mg Met hodi (ULTRAM) 50 2-[address] mg tablet 09:34: every 6 Hospi ta 09 (six) l hours as needed for moderate pain. traMADol 2017-0 Yes 50mg Q6H Take 50 mg Met [...] 10 MG 00:00: DAILY Hospita tablet 00 amLODIPine 2015-11 Yes TAKE 1 Metho di (NORVASC) 1-[address] 10 MG 00:00: DAILY Hospita tablet 00 amLODIPine 2015-11 Yes TAKE 1 Metho di (NORVASC) 1-[address] 10 MG 00:00: DAILY Hospita tablet 00 amLODIPine 2015-11 Yes TAKE 1 Unive rs 10 mg 1- TABLET ity of tablet 00:00: DAILY [address] amLODIPine 2015-11 Yes TAKE 1 Unive rs 10 mg 1- TABLET ity of tablet 00:00: DAILY [address] amLODIPine 2015-11 Yes TAKE 1 Metho di (NORVASC) 1-[address] 10 MG 00:00: DAILY Hospita tablet 00 l pen needle, 2015-0 Yes [id number] Use once Methodi diabetic 31 9-[address] gauge x 00:00: lantus pen Hosp patti l needle pen needle, 2015-0 Yes [id number] Use once Methodi diabetic 31 9-[address] gauge x 00:00: lantus pen Hosp patti l needle pen needle, 2015- Yes [id number] Use once Methodi diabetic 31 9-[address] gauge x 00:00: lantus pen Hosp patti l needle pen needle, Yes [id number] Use once Methodi diabetic 31 9-[address] gauge x 00:00: lantus pen Hosp patti l needle lancets 2015- Yes [id number] BID Metho di misc 9-[address] 00:00: Hospita 00 l lancets 2015-0 Yes [id number] BID Metho di misc 9-[address] 00:00: Hospita 00 l lancets 2015-0 Yes [id number] BID Metho di misc 9-[address] 00:00: Hospita 00 l lancets 2016-0 Yes [id number] BID Metho di misc 9-[address] 00:00: Hospita 00 l FREESTYLE 2016-0 Yes USE Method i FREEDOM 1-[address] LITE kit 00:00: TWICE A Hospit a 00 DAY. l FREESTYLE 2015-0 Yes USE Method i FREEDOM 1-[address] LITE kit 00:00: TWICE A Hospit a 00 DAY. l FREESTYLE 2016-0 Yes USE Method i FREEDOM 1-[address] LITE kit 00:00: TWICE A Hospit a 00 DAY. l FREESTYLE 2016-0 Yes USE Method i FREEDOM 1-[address] LITE kit 00:00: TWICE A Hospit a 00 DAY. l Lantus Lantus Yes Yao inject 66 Comm on SoloStar SoloStar Moore units Spiri t [facility] Gabapentin Gabapentin Yes Yao 1 capsule Common [facility] Simvastatin Simvastatin Yes Yao 1 tablet Common [facility] evening [facility] Amlodipine Amlodipine Yes Yao 1 tablet Common Besylate Besylate Moore [facility] Trulicity Trulicity Yes Yao as Com mon [facility] directed [facility] Aspirin Aspirin Yes Yao 1 tablet Com mon Adult Adult Moore [facility] Gabapentin Gabapentin Yes Yao TAKE 1 Common [facility] CAPSULE Spirit TWICE A - CHI DAY [facility] Metformin Metformin Yes Yao 1 tablet Common HCl HCl Moore with a Spirit [facility] Zyrtec Zyrtec Yes Yao 1 tablet Commo n Allergy Allergy Moore [facility] Valsartan Valsartan Yes Yao 1 tablet Common Moore [facility] Metformin Metformin No 1{table BID Metformin HCl 1000 MG HCl 1000 MG t_with_ HCl 1000 a_meal} MG Lantus Lantus No Lantus SoloStar SoloStar SoloStar 100 UNIT/ML 100 UNIT/ML 100 UNIT/ML Gabapentin Gabapentin No Gabapentin 300 MG 300 MG 300 MG Lantus Lantus No Lantus SoloStar SoloStar SoloStar 100 UNIT/ML 100 UNIT/ML 100 UNIT/ML Simvastatin Simvastatin No 1{table QD Simvastati 20 MG 20 MG t_in_th n 20 MG e_eveni ng} Valsartan Valsartan No 1{table QD Valsartan 320 MG 320 MG t} 320 MG Zyrtec Zyrtec No 1{table QD Zyrtec Allergy 10 Allergy 10 t} Allergy 10 MG MG MG Aspirin Aspirin No 1{table QD Aspirin Adult 325 Adult 325 t} Adult 325 MG MG MG Gabapentin Gabapentin No 1{capsu BID Gabapentin 300 MG 300 MG le} 300 MG Trulicity Trulicity No Trulicity 1.5 1.5 1.5 MG/0.5ML MG/0.5ML MG/0.5ML Wellbutrin Wellbutrin No 1{table QD Wellbutrin XL 300 MG XL 300 MG t_in_th XL 300 MG e_morni ng} Amlodipine Amlodipine No 1{table QD Amlodipine Besylate 10 Besylate 10 t} Besylate MG MG 10 MG Metformin Metformin No 1{table BID Metformin HCl 1000 MG HCl 1000 MG t_with_ HCl 1000 a_meal} MG Aspirin Aspirin No 1{table QD Aspirin Adult 325 Adult 325 t} Adult 325 MG MG MG Gabapentin Gabapentin No Gabapentin 300 MG 300 MG 300 MG Lantus Lantus No Lantus SoloStar SoloStar SoloStar 100 UNIT/ML 100 UNIT/ML 100 UNIT/ML Simvastatin Simvastatin No 1{table QD Simvastati 20 MG 20 MG t_in_th n 20 MG e_eveni ng} Valsartan Valsartan No 1{table QD Valsartan 320 MG 320 MG t} 320 MG Wellbutrin Wellbutrin No 1{table QD Wellbutrin XL 300 MG XL 300 MG t_in_th XL 300 MG e_morni ng} Zyrtec Zyrtec No 1{table QD Zyrtec Allergy 10 Allergy 10 t} Allergy 10 MG MG MG Lantus Lantus No Lantus SoloStar SoloStar SoloStar 100 UNIT/ML 100 UNIT/ML 100 UNIT/ML Trulicity Trulicity No Trulicity 1.5 1.5 1.5 MG/0.5ML MG/0.5ML MG/0.5ML Gabapentin Gabapentin No 1{capsu BID Gabapentin 300 MG 300 MG le} 300 MG Amlodipine Amlodipine No 1{table QD Amlodipine Besylate 10 Besylate 10 t} Besylate MG MG 10 MG Metformin Metformin No 1{table BID Metformin HCl 1000 MG HCl 1000 MG t_with_ HCl 1000 a_meal} MG Aspirin Aspirin No 1{table QD Aspirin Adult 325 Adult 325 t} Adult 325 MG MG MG Simvastatin Simvastatin No 1{table QD Simvastati 20 MG 20 MG t_in_th n 20 MG e_eveni ng} Valsartan Valsartan No 1{table QD Valsartan 320 MG 320 MG t} 320 MG Lantus Lantus No Lantus SoloStar SoloStar SoloStar 100 UNIT/ML 100 UNIT/ML 100 UNIT/ML Amlodipine Amlodipine No 1{table QD Amlodipine Besylate 10 Besylate 10 t} Besylate MG MG 10 MG Wellbutrin Wellbutrin No 1{table QD Wellbutrin XL 300 MG XL 300 MG t_in_th XL 300 MG e_morni ng} Zyrtec Zyrtec No 1{table QD Zyrtec Allergy 10 Allergy 10 t} Allergy 10 MG MG MG Gabapentin Gabapentin No Gabapentin 300 MG 300 MG 300 MG Lantus Lantus No Lantus SoloStar SoloStar SoloStar 100 UNIT/ML 100 UNIT/ML 100 UNIT/ML Trulicity Trulicity No Trulicity 1.5 1.5 1.5 MG/0.5ML MG/0.5ML MG/0.5ML Gabapentin Gabapentin No 1{capsu BID Gabapentin 300 MG 300 MG le} 300 MG Metformin Metformin No 1{table BID Metformin HCl 1000 MG HCl 1000 MG t_with_ HCl 1000 a_meal} MG Zyrtec Zyrtec No 1{table QD Zyrtec Allergy 10 Allergy 10 t} Allergy 10 MG MG MG Gabapentin Gabapentin No Gabapentin 300 MG 300 MG 300 MG Valsartan Valsartan No 1{table QD Valsartan 320 MG 320 MG t} 320 MG Lantus Lantus No Lantus SoloStar SoloStar SoloStar 100 UNIT/ML 100 UNIT/ML 100 UNIT/ML Amlodipine Amlodipine No 1{table QD Amlodipine Besylate 10 Besylate 10 t} Besylate MG MG 10 MG Gabapentin Gabapentin No 1{capsu BID Gabapentin 300 MG 300 MG le} 300 MG Wellbutrin Wellbutrin No 1{table QD Wellbutrin XL 300 MG XL 300 MG t_in_th XL 300 MG e_morni ng} Metformin Metformin No 1{table BID Metformin HCl 1000 MG HCl 1000 MG t_with_ HCl 1000 a_meal} MG Simvastatin Simvastatin No Simvastati 20 mg 20 mg n 20 mg Aspirin Aspirin No 1{table QD Aspirin Adult 325 Adult 325 t} Adult 325 MG MG MG Lantus Lantus No Lantus SoloStar SoloStar SoloStar 100 UNIT/ML 100 UNIT/ML 100 UNIT/ML Trulicity Trulicity No Trulicity 1.5 1.5 1.5 MG/0.5ML MG/0.5ML MG/0.5ML Amlodipine Amlodipine No 1{table QD Amlodipine Besylate 10 Besylate 10 t} Besylate MG MG 10 MG Trulicity Trulicity No Trulicity 1.5 1.5 1.5 MG/0.5ML MG/0.5ML MG/0.5ML Lantus Lantus No Lantus SoloStar SoloStar SoloStar 100 UNIT/ML 100 UNIT/ML 100 UNIT/ML Aspirin Aspirin No 1{table QD Aspirin Adult 325 Adult 325 t} Adult 325 MG MG MG Zyrtec Zyrtec No 1{table QD Zyrtec Allergy 10 Allergy 10 t} Allergy 10 MG MG MG Valsartan Valsartan No 1{table QD Valsartan 320 MG 320 MG t} 320 MG Gabapentin Gabapentin No 1{capsu BID Gabapentin 300 MG 300 MG le} 300 MG Simvastatin Simvastatin No 1{table QD Simvastati 20 MG 20 MG t_in_th n 20 MG e_eveni ng} Metformin Metformin No 1{table BID Metformin HCl 1000 MG HCl 1000 MG t_with_ HCl 1000 a_meal} MG Gabapentin Gabapentin No Gabapentin 300 MG 300 MG 300 MG Simvastatin Simvastatin No 1{table QD Simvastati 20 MG 20 MG t_in_th n 20 MG e_eveni ng} Gabapentin Gabapentin No Gabapentin 300 MG 300 MG 300 MG Valsartan Valsartan No 1{table QD Valsartan 320 MG 320 MG t} 320 MG Zyrtec Zyrtec No 1{table QD Zyrtec Allergy 10 Allergy 10 t} Allergy 10 MG MG MG Metformin Metformin No 1{table BID Metformin HCl 1000 MG HCl 1000 MG t_with_ HCl 1000 a_meal} MG Wellbutrin Wellbutrin No 1{table QD Wellbutrin XL 300 MG XL 300 MG t_in_th XL 300 MG e_morni ng} Gabapentin Gabapentin No 1{capsu BID Gabapentin 300 MG 300 MG le} 300 MG Aspirin Aspirin No 1{table QD Aspirin Adult 325 Adult 325 t} Adult 325 MG MG MG Trulicity Trulicity No Trulicity 1.5 1.5 1.5 MG/0.5ML MG/0.5ML MG/0.5ML Lantus Lantus No Lantus SoloStar SoloStar SoloStar 100 UNIT/ML 100 UNIT/ML 100 UNIT/ML Lantus Lantus No Lantus SoloStar SoloStar SoloStar 100 UNIT/ML 100 UNIT/ML 100 UNIT/ML Amlodipine Amlodipine No 1{table QD Amlodipine Besylate 10 Besylate 10 t} Besylate MG MG 10 MG Lantus Lantus No Lantus SoloStar SoloStar SoloStar 100 UNIT/ML 100 UNIT/ML 100 UNIT/ML Gabapentin Gabapentin No Gabapentin 300 MG 300 MG 300 MG Lantus Lantus No Lantus SoloStar SoloStar SoloStar 100 UNIT/ML 100 UNIT/ML 100 UNIT/ML Simvastatin Simvastatin No 1{table QD Simvastati 20 MG 20 MG t_in_th n 20 MG e_eveni ng} Valsartan Valsartan No 1{table QD Valsartan 320 MG 320 MG t} 320 MG Zyrtec Zyrtec No 1{table QD Zyrtec Allergy 10 Allergy 10 t} Allergy 10 MG MG MG Aspirin Aspirin No 1{table QD Aspirin Adult 325 Adult 325 t} Adult 325 MG MG MG Gabapentin Gabapentin No 1{capsu BID Gabapentin 300 MG 300 MG le} 300 MG Trulicity Trulicity No Trulicity 1.5 1.5 1.5 MG/0.5ML MG/0.5ML MG/0.5ML Wellbutrin Wellbutrin No 1{table QD Wellbutrin XL 300 MG XL 300 MG t_in_th XL 300 MG e_morni ng} Amlodipine Amlodipine No 1{table QD Amlodipine Besylate 10 Besylate 10 t} Besylate MG MG 10 MG Immunizations Ordered Immunization Filled Immunization Date Status Commen ts Source Name Name Afluria single dose Afluria single dose 2019-08-22 Completed [facility] 08:[facility]:00 [facility] Afluria single dose Afluria single dose 2019-08-22 Completed [facility] - 08:40:00 [facility] Afluria single dose Afluria single dose 2019-08-22 Completed [facility] - 08:40:00 [facility] Afluria single dose Afluria single dose 2019-08-22 Completed [facility] - 08:40:00 [facility] Afluria single dose Afluria single dose 2019-08-22 Completed [facility] - 08:40:00 [facility] Afluria single dose Afluria single dose 2019-08-22 Completed [facility] 08:40:00 [facility] Afluria single dose Afluria single dose 2019-08-22 Completed [facility] - 08:40:00 [facility] Afluria single dose Afluria single dose 2019-08-22 Completed [facility] 00:[facility]:00 [facility] Influenza, 2015-08-27 [facility]pleted [facility] Influenza, 2015-08-27 [facility] Influenza, 2015-08-27 Completed [facility] Influenza, 2015-08-27 Completed [facility] Vital Signs Vital Name Observation Time Observation Value Comments Source height 2021-01-05 10:40:00 59.5 [in_i] [facility] weight 2021-01-05 10:40:00 176.3 [lb_av] [facility] temperature 2021-01-05 10:40:00 97.3 [degF] [facility] bmi 2021-01-05 10:40:00 35.01 kg/m2 [facility] oximetry 2021-01-05 10:40:00 95 % [facility] respiratory rate 2021-01-05 10:40:00 17 /min Comm on [facility] blood pressure 2021-01-05 10:40:00 135 mm[Hg] [facility] - systolic [facility] blood pressure 2021-01-05 10:40:00 60 mm[Hg] [facility] - diastolic [facility] height 2021-01-05 11:00:00 59.5 [in_i] [facility] weight 2021-01-05 11:00:00 176.3 [lb_av] [facility] temperature 2021-01-05 11:00:00 97.3 [degF] [facility] bmi 2021-01-05 11:00:00 35.01 kg/m2 [facility] oximetry 2021-01-05 11:00:00 95 % [facility] blood pressure 2021-01-05 11:00:00 135 mm[Hg] [facility] - systolic [facility] blood pressure 2021-01-05 11:00:00 60 mm[Hg] [facility] diastolic [facility] height 2020-10-06 13:00:00 59.5 [in_i] [facility] weight 2020-10-06 13:00:00 173.3 [lb_av] [facility] temperature 2020-10-06 13:00:00 97.2 [degF] [facility] bmi 2020-10-06 13:00:00 34.41 kg/m2 [facility] oximetry 2020-10-06 13:00:00 97 % [facility] respiratory rate 2020-10-06 13:00:00 19 /min Comm on [facility] blood pressure 2020-10-06 13:00:00 132 mm[Hg] [facility] systolic [facility] blood pressure 2020-10-06 13:00:00 62 mm[Hg] [facility] diastolic [facility] Procedures This patient has no known procedures. Plan of Care Planned Activity Planned Date Details Comments Source Future Scheduled 2023-03-02 COVID-19 VACCINE (#1) [facility] Test 19:06:15 [code = COVID-19 VACCINE (#1)] Future Scheduled 2023-03-02 COLONOSCOPY SCREENING [facility] Test 19:06:15 [code = COLONOSCOPY SCREENING] Future Scheduled 2023-03-02 SHINGLES VACCINES (1 Met [facility] Test 19:06:15 of 2) [code = SHINGLES VACCINES (1 of 2)] Future Scheduled 2023-03-02 BREAST CANCER [facility] Test 19:06:15 SCREENING [code = BREAST CANCER SCREENING] Future Scheduled 2023-03-02 65+ PNEUMOCOCCAL [facility] Test 19:06:15 VACCINE (1 - PCV) [code = 65+ PNEUMOCOCCAL VACCINE (1 - PCV)] Future Scheduled 2023-03-02 INFLUENZA VACCINE Method [facility] Test 19:06:15 [code = INFLUENZA VACCINE] Future Scheduled 2022-01-04 COVID-19 VACCINE (1) [facility] 18:24:49 [code = COVID-19 VACCINE (1)] Future Scheduled 2022-01-04 [facility]ING [facility] Test 18:24:49 [code = COLONOSCOPY SCREENING] Future Scheduled 2022-01-04 SHINGLES VACCINES (#[facility]) [facility] 18:24:49 [code = SHINGLES VACCINES (#1)] Future Scheduled 2022-01-04 [facility] Test 18:24:49 SCREENING [code = BREAST CANCER SCREENING] Future Scheduled 2022-01-04 65+ [facility] [facility] Test 18:24:49 VACCINE (1 of 1 - PPSV23) [code = 65+ PNEUMOCOCCAL VACCINE (1 of 1 - PPSV23)] Future Scheduled 2022-01-04 [facility]UENZA VACCINE [facility] Test 18:24:49 [code = INFLUENZA VACCINE] Future Scheduled COVID[facility]19 [facility] (1[facility] [code = COVID-19 VACCINE (1)] Future Scheduled Scre[facility] for [facility] Test malignant neoplasm of cervix (procedure) [code = 143775507] Future [facility] [code = COLONOSCOPY SCREENING] Future Scheduled SHINGLES VACCINES (#1) [facility] [code = SHINGLES VACCINES (#1)] Future Scheduled BREAST CANCER [facility] Test SCREENING [code = BREAST CANCER SCREENING] Future Scheduled 65+ [facility]OCOCCAL [facility] Test VACCINE (1 of 1 - PPSV23) [code = 65+ PNEUMOCOCCAL VACCINE (1 of 1 - PPSV23)] Future Scheduled INFLUENZA VACCINE [facility] Test [code = INFLUENZA VACCINE] Future Scheduled COVID-19 [facility]ACCINE (1) [facility] [code = COVID-19 VACCINE (1)] Future Scheduled Screening for [facility] Test malignant neoplasm of cervix (procedure) [code = 509288927] Future Scheduled COLONOSCOPY SCREENING [facility] Test [code = COLONOSCOPY SCREENING] Future Scheduled SHINGLES VACCINES (#1) [facility] Test [code = SHINGLES VACCINES (#1)] Future Scheduled BREAST CANCER [facility] Test SCREENING [code = BREAST CANCER SCREENING] Future Scheduled 65+ [facility]OCOCCAL [facility] Test VACCINE (1 of 1 - PPSV23) [code = 65+ PNEUMOCOCCAL VACCINE (1 of - PPSV23)] Future Scheduled INFLUENZA VACCINE [facility] Test [code = INFLUENZA VACCINE] Encounters Start End Encounter Admission Attending Care Care Encounter Source Date/Time Date/Time Type Type Clinicians Facility Department ID 2021-12-23 Outpatient Moore, STLMLC STLMLC [id number] Common 11:18:59 Yao [id number] [facility] 2021-12-23 Outpatient Moore, STLMLC STLMLC [id number] Common 11:18:48 Yao [id number] [facility] 2021-12-23 Outpatient Moore, STLMLC STLMLC [id number] Common 11:16:49 Yao [id number] [facility] 2021-04-10 2021-04-10 (TEL) STLMLC STLMLC [id number] [facility] 00:00:00 00:00:00 [facility] 2021-01-21 2021-01-21 (TEL) STLMLC STLMLC [id number] [facility] 00:00:00 00:00:00 [facility] 2021-01-19 2021-01-19 (TEL) STLMLC STLMLC [id number] Co mmon 00:00:00 00:00:00 [facility] 2021-01-05 2021-01-05 OFFICE STLMLC STLMLC [id number] Co mmon 00:00:00 00:00:00 VISIT [facility] ESTAB PT - CHI LEVEL 4 [facility] 2021-01-05 2021-01-05 (MCR WELL) STLMLC STLMLC [id number] Common 00:00:00 00:00:00 Medicare Spiri t Wellness [facility] 2020-10-06 2020-10-06 OFFICE STLMLC STLMLC [id number] Co mmon 00:00:00 00:00:00 VISIT [facility] ESTAB PT - CHI LEVEL 4 [facility] 2020-09-16 2020-09-16 (TEL) STLMLC STLMLC [id number] Co mmon 00:00:00 00:00:00 [facility] 2020-07-28 2020-07-28 [id number] Common 10:15:00 10:15:[address] [facility] 2020-07-03 2020-07-03 [facility] [id number] Common 13:15:00 13:15:[address] [facility] 2020-06-03 2020-06-03 [facility] [id number] Common 08:10:00 08:10:[address] [facility] 2020-04-02 2020-04-02 [facility] [id number] Common 14:30:00 14:30:[address] [facility] 2020-03-19 2020-03-19 [facility] [id number] Common 16:00:00 16:00:[address] [facility] 2020-03-18 2020-03-18 [facility] [id number] Common 10:06:00 10:06:[address] [facility] 2020-02-19 2020-02-19 [facility] [id number] Common 10:31:00 10:31:[address] [facility] 2020-02-14 2020-02-14 [facility] [id number] Common 11:00:00 11:00:[address] [facility] 2020-02-14 2020-02-14 [facility] [id number] Common 09:52:00 09:52:[address] [facility] 2020-01-25 2020-01-25 [facility] [id number] Common 10:49:00 10:49:[address] [facility] 2020-01-12 2020-01-12 Emmett Gant [facility] [id number] [facility] 00:00:00 00:00:00 Deandra Thompson [id number] i ty of [place] [id number] [phone] Me dical nal [address] 2020-01-12 2020-01-12 ABDIRASHID [place] [id number] 00:00:00 00:00:00 Deandra Thompson [id number] Careymal[place] Suh [id number] Professio [phone] n[address] 2019-12-25 2019-12-25 [facility] [id number] Common 09:30:00 09:30:00 [place] [facility] 2019-11-30 2019-11-30 [facility] [id number] Common 08:30:00 08:30:[address] [facility] 2019-11-16 2019-11-16 [facility] [id number] Common 15:35:00 15:35:[address] [facility] 2019-11-01 2019-11-01 [facility] [id number] Common 10:00:00 10:00:[address] [facility] 2019-10-31 2019-10-31 [facility] [id number] Common 09:59:00 09:59:[address] [facility] 2019-08-28 2019-08-28 [facility] [id number] Common 09:51:00 09:51:[address] [facility] 2019-08-27 2019-08-27 [facility] [id number] Common 09:46:00 09:46:[address] [facility] 2019-08-22 2019-08-22 [facility] [id number] Common 08:15:00 08:15:00 t [employer] [facility] Out-Patient [address] [facility] Results This patient has no known results.
[2023-04-04] MEDS ORDERED: ONDANSETRON 4 MG/2 ML VIAL ONE (11:26)
[2023-04-04] MEDS ORDERED: MORPHINE 4 MG/ML SYR ONE (11:26)
[2023-04-04 11:38] LABS: Absolute Lymphocytes (CBC) 1.5 K/uL (0.7-4.9); MCV 81.9 fL (80-100); MPV 7.8 fL (7.6-11.3); RBC Red Blood Cell Count 4.27 M/uL (3.86-4.86)
--- NOTE | 2023-04-04 11:45 | RAD REPORT ---
EXAM DESCRIPTION: CT - Stone Protocol - 04/04/2023 11:33 am CLINICAL HISTORY: Flank pain. left flank pain COMPARISON: Abdomen Pelvis W Contrast dated 08/17/2017 TECHNIQUE: Axial images were obtained without oral or IV contrast. Lack of contrast limits solid org an and vascular assessment. The [id number] spans the entirety of the system partially obscuring uppermost abdomen and lung bases. Coronal reformatted images were obtained and reviewed. All CT scans are performed using dose optimization technique as appropriate and may include automated exposure control or mA/KV adjustment according to patient size. FINDINGS: The lower lung salvador are clear. Small hiatal hernia. Imaged portions of the liver and spleen show no suspicious findings on non-contrast imaging. The panc reas and adrenal glands are normal. No pathologic lymphadenopathy in the abdomen or pelvis. No urinary tract stones or obstructive uropathy. No bowel obstruction, free air, free fluid or abscess. Nonvisualized appendix. Lumbar degenerative changes are present, mild with mild dextroscoliosis. IMPRESSION: No urinary tract stones or obstructive uropathy.
[2023-04-04 11:58] LABS: Potassium 4.2 mEq/L (3.5-5.1)
[2023-04-04 11:59] LABS: Albumin 3.3 g/dL (3.4-5.0); Bilirubin Total 0.5 mg/dL (0.2-1.0); Protein, Total 7.8 g/dL (6.4-8.2)
--- NOTE | 2023-04-04 12:24 | RAD REPORT ---
EXAM DESCRIPTION: CTAbdomen Pelvis W Contrast - 04/04/2023 12:12 pm CLINICAL HISTORY: Abdominal pain. left sided abdominal pain COMPARISON: Abdomen Pelvis W Contrast dated 08/17/2017; Stone Protocol dated 04/04/2023 TECHNIQUE: Biphasic CT imaging of the abdomen and pelvis was performed with 100 ml non-ionic IV cont rast. All CT scans are performed using dose optimization technique as appropriate and may include automated exposure control or mA/KV adjustment according to patient size. FINDINGS: The lung bases are clear. The liver, spleen, pancreas, adrenal glands and kidneys are within normal limits. Mild gallbladder di stention. No bowel obstruction, free air, free fluid or abscess. Significant stool retained throughout the col on. Calcified scar lesion seen periumbilical subcutaneous fat. Nonvisualized appendix. No evidence of significant lymphadenopathy. No suspicious bony findings. IMPRESSION: No acute intra-abdominal or pelvic finding. Significant fecal retention. Nonspecific gallbladder distention.
[2023-04-04 14:21] LABS: Urine Bacteria <20 /HPF (<20); Urine Bilirubin NEGATIVE (Negative); Urine Blood Negative (Negative); Urine Clarity Clear (Clear); Urine Color Yellow (Yellow); Urine Glucose NEGATIVE (Negative); Urine Mucus 1+ /HPF (None Seen); Urine Protein 1+ (Negative); Urine Urobilinogen Normal (Normal); Urine pH 6.5 (5.0-7.0)
[2023-04-04 14:42] LABS: Specific Gravity > 1.030 (1.005-1.030)
--- NOTE | 2023-04-04 15:01 | EDPHYS ---
Physician Documentation [facility] Name: Jazlyn Granados Age: 67 yrs Sex: Female : 1955 Arrival Date: 04/04/2023 Time: 10:29 Bed 4 Private MD: Bubba Velez V ED Physician Bill Castro HPI: 04/04 11:20 This 67 yrs old Female presents to ER via Ambulatory with complaints of Back Pain, jmm Abdominal Pain. 11:20 The patient presents with pain that is acute. The symptoms are located in the left [facility] flank. Onset: The symptoms/episode began/occurred gradually, 3 day(s) ago. The pain radiates to the abdomen. Associated signs and symptoms: Pertinent positives: dysuria. Modifying factors: The patient symptoms are alleviated by nothing, the patient symptoms are aggravated by nothing. Historical: - Allergies: 11:12 Lisinopril; ap3 - PMHx: 11:12 Anxiety; Depression; Diabetes - IDDM; Hyperlipidemia; Hypertension; ap3 - Immunization history:: Client reports having NOT received the Covid vaccine. - Social history:: Smoking status: Patient denies any tobacco usage or history of. ROS: 11:20 Cardiovascular: Negative for chest pain, palpitations, and edema, Respiratory: Negative jmm for shortness of breath, cough, wheezing, and pleuritic chest pain. 11:20 Constitutional: Positive for body aches. 11:20 Abdomen/GI: Positive for abdominal pain. 11:20 Back: Positive for pain with movement. 11:20 : Positive for urinary symptoms. 11:20 All other systems are negative. Exam: 11:20 Constitutional: This is a well developed, well nourished patient who is awake, alert, jmm and in no acute distress. Head/Face: atraumatic. Eyes: EOMI, no conjunctival erythema appreciated ENT: Moist Mucus Membranes Neck: Trachea midline, Supple Chest/axilla: Normal chest wall appearance and motion. Cardiovascular: Regular rate and rhythm. No edema appreciated Respiratory: Normal respirations, no respiratory distress appreciated Abdomen/GI: Non distended 11:20 Skin: General appearance color normal MS/ Extremity: Moves all extremities, no obvious deformities appreciated, no edema noted to the lower extremities Neuro: Awake and alert Psych: Behavior is normal, Mood is normal, Patient is cooperative and pleasant 11:20 Abdomen/GI: Inspection: abdomen appears normal, Bowel sounds: normal, Palpation: soft, mild abdominal tenderness, in the left lower quadrant. 11:20 Back: CVA tenderness, that is moderate, is noted on the left. Vital Signs: 11:11 BP 127 / 73; Pulse 95; Resp 17; Temp 98.3; Pulse Ox 95% ; Weight 65.77 kg; Height 4 ft. ap3 11 in. ; Pain 10/10; 14:33 BP 137 / 67; Pulse 88; Resp 16; Pulse Ox 95% ; bp 15:26 BP 116 / 73; Pulse 93; Resp 16; Pulse Ox 98% ; bp 11:11 Body Mass Index 29.29 (65.77 kg, 149.86 cm) ap3 11:11 Pain Scale: Adult ap3 MDM: 11:27 Patient medically screened. [facility] 14:58 Differential diagnosis: Spasm, pyelonephritis, urinary tract infection, [facility] ureterolithiasis, diverticulitis. Data reviewed: vital signs, nurses notes, lab test result(s), radiologic studies, CT scan. Consideration of Admission/Observation. I considered the following discharge prescriptions or medication management in the emergency department Medications were administered in the Emergency Department. See MAR. Care significantly affected by the following chronic conditions: Diabetes, Hypertension. Counseling: I had a detailed discussion with the patient and/or guardian regarding: the historical points, exam findings, and any diagnostic results supporting the discharge/admit diagnosis, lab results, radiology results, the need for outpatient follow up, to return to the emergency department if symptoms worsen or persist or if there are any questions or concerns that arise at home. ED course: Pain is decreased. Patient advised follow-up PCP and otherwise given strict return precautions. Patient understood agrees plan of care.. 05 11:16 Order name: CBC with Diff; Complete Time: 11:50 [facility] 04/04 11:16 Order name: CMP; Complete Time: 11:59 [facility] 04/04 11:16 Order name: Lipase; Complete Time: 11:59 [facility] 04/04 11:16 Order name: Urinalysis w/ reflexes; Complete Time: 14:45 [facility] 04/04 11:16 Order name: CT Stone Protocol; Complete Time: 11:50 [facility] 04/04 11:51 Order name: CT Abd/Pelvis - IV Contrast Only; Complete Time: 12:30 [facility] 04/04 11:16 Order name: IV Saline Lock; Complete Time: 11: [facility] 04/04 11:16 Order name: Labs collected and sent; Complete Time: [facility] Administered Medications: 11: Drug: Ondansetron IVP 4 mg Route: IVP; Site: right antecubital; ap3 15:27 Follow up: Response: No adverse reaction bp 11:32 Drug: morphine IVP or IV 4 mg Route: IVP; Infused Over: 4 mins; Site: right antecubital;ap3 15:28 Follow up: Response: No adverse reaction bp Disposition Summary: 04/04/23 15:00 Discharge Ordered Location: Home [facility] Condition: Stable [facility] Diagnosis - Low back pain jmm - Other abdominal pain jmm - Dysuria [facility] Followup: [facility] - With: Bubba Velez MD - When: 2 - 3 days - Reason: Recheck today's complaints, Continuance of care, Re-evaluation by your physician Discharge Instructions: - Discharge Summary Sheet jmm - Abdominal Pain, Adult jmm - Acute Back Pain, Adult jmm - Dysuria [facility] Forms: - Medication Reconciliation Form [facility] - Thank You Letter [facility] - Antibiotic Education m - Prescription Opioid Use [facility] Prescriptions: - acetaminophen-codeine 300-15 mg Oral tablet - take 1 tablet by ORAL route every 8 hours As needed as needed for pain; 20 jmm tablet; Refills: 0, Product Selection Permitted Signatures: Dispatcher [employer] [place] PA PA jm Shabana Mcpherson RN RN ap3 Mickey Holliday RN bp
--- NOTE | 2023-04-04 15:01 | ER ---
Nurse's Notes [facility] Name: Jazlyn Granados Age: 67 yrs Sex: Female : 1955 Arrival Date: 04/04/2023 Time: 10:29 Bed 4 Private MD: Bubba Velez V Diagnosis: Low back pain;Other abdominal pain;Dysuria Presentation: 04/04 11:11 Chief complaint: Patient states: she is having left sided lower back pain that radiates ap3 to the front lower left quadrant of her abdomen. patient reports no difficulty urinating at this time. Coronavirus screen: At this time, the client does not indicate any symptoms associated with coronavirus-19. Ebola Screen: No symptoms or risks identified at this time. Initial Sepsis Screen: Does the patient meet any 2 criteria? No. Patient's initial sepsis screen is negative. Does the patient have a suspected source of infection? No. Patient's initial sepsis screen is negative. Risk Assessment: Do you want to hurt yourself or someone else? Patient reports no desire to harm self or others. Onset of symptoms was April 02, 2023. 11:11 Method Of Arrival: Ambulatory ap3 11:11 Acuity: KAELYN 3 ap3 Triage Assessment: 11:13 General: Appears uncomfortable, Behavior is calm, cooperative, appropriate for age. ap3 Pain: Complains of pain in left low back Pain radiates to left lower quadrant Pain currently is 10 out of 10 on a pain scale. Neuro: Level of Consciousness is awake, alert, obeys commands, Oriented to person, place, time, situation. Cardiovascular: Patient's skin is warm and dry. Respiratory: Airway is patent Respiratory effort is even, unlabored, Respiratory pattern is regular, symmetrical. Musculoskeletal: Range of motion: intact in all extremities. Historical: - Allergies: 11:12 Lisinopril; ap3 - PMHx: 11:12 Anxiety; Depression; Diabetes - IDDM; Hyperlipidemia; Hypertension; ap3 - Immunization history:: Client reports having NOT received the Covid vaccine. - Social history:: Smoking status: Patient denies any tobacco usage or history of. Screenin:14 [facility] ED Fall Risk Assessment (Adult) History of falling in the last 3 months, ap3 including since admission No falls in past 3 months (0 pts). Abuse screen: Denies threats or abuse. Nutritional screening: No deficits noted. Tuberculosis screening: No symptoms or risk factors identified. Assessment: 14:30 Reassessment: Patient appears in no apparent distress at this time. Patient is alert, bp oriented x 3, equal unlabored respirations, skin warm/dry/pink. 15:26 General: [facility]. Neuro: Level of Consciousness is awake, alert, obeys bp commands, Oriented to Appropriate for age. Vital Signs: 11:11 BP 127 / 73; Pulse 95; Resp 17; Temp 98.3; Pulse Ox 95% ; Weight 65.77 kg; Height 4 ft. ap3 11 in. ; Pain 10/10; 14:33 BP 137 / 67; Pulse 88; Resp 16; Pulse Ox 95% ; bp 15:26 BP 116 / 73; Pulse 93; Resp 16; Pulse Ox 98% ; bp 11:11 Body Mass Index 29.29 (65.77 kg, 149.86 cm) ap3 11:11 Pain Scale: Adult ap3 ED Course: 10:32 Patient arrived in ED. mr 10:32 Bubba Velez MD is Private Physician. mr 11:12 Triage completed. ap3 11:14 Arm band placed on left wrist. ap3 11:15 Casa Young PA is PHCP. jmm 11:15 Bill Castro MD is Attending Physician. jmm 11:31 Inserted saline lock: 22 gauge in right antecubital area, using aseptic technique. ap3 Blood collected. 11:33 CT Stone Protocol In Process Unspecified. EDMS 12:14 CT Abd/Pelvis - IV Contrast Only In Process Unspecified. EDMS 13:49 Mickey Holliday, NETO is Primary Nurse. bp 13:58 Urinalysis w/ reflexes Sent. zm 15:00 Bubba Velez MD is Referral Physician. jmm 15:27 No provider procedures requiring assistance completed. IV discontinued, intact, bp bleeding controlled, No redness/swelling at site. Pressure dressing applied. Administered Medications: 11:31 Drug: Ondansetron IVP 4 mg Route: IVP; Site: right antecubital; ap3 15:27 Follow up: Response: No adverse reaction bp 11:32 Drug: morphine IVP or IV 4 mg Route: IVP; Infused Over: 4 mins; Site: right antecubital;ap3 15:28 Follow up: Response: No adverse reaction bp Outcome: 15:00 Discharge ordered by MD. nunez 15:26 Patient left the ED. piper 15:27 Discharged to home ambulatory. bp 15:27 Condition: stable 15:27 Discharge instructions given to patient, Instructed on discharge instructions, follow up and referral plans. medication usage, Demonstrated understanding of instructions, follow-up care, medications, Prescriptions given X 1. Signatures: Dispatcher [employer] EDMS Casa Young PA PA jmm Rivera, Mary mr Peltier, Brian, RN RN Shabana Gonzalez RN RN ap3 Lexy Stockton
[2023-04-04 15:43] VITALS: TEMP 98.3; O2SAT 95
[2023-04-04 15:49] VITALS: BP 137/67
== END 2023-04-04 15:26 | disposition home or self-care (01) ==
LOC: ER 10:29
DX: M54.50 Low back pain, unspecified (principal); R10.32 Left lower quadrant pain; R30.0 Dysuria; Z88.8 Allergy status to other drugs, medicaments and biological substances
CPT/HCPCS: 85025; 81001; 36415; 83690; 80053; 76377; 74176; 74177; 96375; 96374; 99284; Q9967; J2405

== ENCOUNTER 2023-04-07 19:00 | Emergency (ER) | payer OTHER ==
--- OUTSIDE RECORDS SUMMARY | 2023-04-07 19:05 | XMS REPORT | Continuity of Care Document ---
:1955 Author Organization [facility] t Address [address] [place] [address] [place] [id number] Care Team Providers Name Role Phone Lalitha KAUFMAN, Arielle Allison Primary Care Physician [phone] Yao Moore Attending Clinician Unavailable Alfreda KAUFMAN, Deandra Carey Attending Clinician Unavailable Payers Payer Name Policy Type Policy Number Effective Date Expiration Date S olegario [facility] C1 [id number] [facility] MEDICARE MB [id number] [facility] NOVITAS - [facility] MEDICARE MB [id number] [facility] NOVITAS - [facility] C1 [id number] [facility] - [facility] C1 [id number] [facility] - [facility] MEDICARE MB [id number] [facility] NOVITAS - [facility] MEDICARE MB [id number] [facility] NOVITAS - [facility] C1 [id number] [facility] - [facility] C1 [id number] [facility] it [facility] MEDICARE MB [id number] [facility] NOVITAS [facility] C1 [id number] [facility] MEDICARE MB [id number] [facility] & C1 [id number] [facility] COMPANY [facility] C1 [id number] [facility] Problems Condition Condition Condition Status Onset Resolution [...] nivers ia ia 0-04 ity of 00:00: [address] Essential Essential Disease Active 2016-11 Uni vers hypertensi hypertensi 0-04 it y of on on 00:00: [address] HLD HLD Disease Active Methodi (hyperlipi [...] mellitus mellitus 00:00: Hospit a 00 l [id number] Adult BMI Problem Active Com mon 33.0-33.9 Spirit kg/sq [facility] [id number] Mixed Problem Active Common hyperlipid [facility] [id number] Hypomagnes Problem Active Co mmon emia [facility] [id number] Vitamin D Problem Active Comm on deficiency [facility] [id number] 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 insulin [facility] [id number] Depression Problem Active Co mmon with Spirit anxiety [facility] [id number] Hypercalce Problem Active Com mon [place] Spirit [facility] [id number] Seasonal Problem Active Comm on allergies [facility] [id number] Current Problem Active Common moderate Spirit episode of [facility] major [facility] prior episode Allergies, Adverse Reactions, [...] History of Tobacco [facility] - Use [facility] Gender [facility] Alcohol intake 2017-01-24 2017-01-24 Current [facility] 00[facility]00:00 00:00:00 non-drinker of Hospital alcohol (finding) History of Social 2016-03-04 2016-03-[address] function 00:00:00 00:00:00 Hospital Sex Ass[birth year] At [birth year] [facility] 00[facility]00 Hospital Smoking Status Start Date Stop Date Source Unknown if ever smoked [facility] Never Smoker Common [facility] Medications Ordered Filled Start Stop Current Ordering Indication Dosage Frequency Signature Comments Components Source Medication Medication Date Date Medication? Clinician (SIG) Name Name Bactrim DS Bactrim DS 2019- 2020- No Yao 1 tablet Common 07-28 [facility] Spirit 00:00: 00:00 - CHI 00 :00 [facility] Pyridium Pyridium 2019- 2020- No Yao 1 tablet Common 07-28 Moore after Spirit 00:00: 00:00 meals - CHI 00 :00 [facility] Wellbutrin Wellbutrin 2019-0 Yes Yao 1 tablet Common XL XL 07-03 Moore in the Spirit 00:00: morning - CHI 00 [facility] Wellbutrin Wellbutrin 2019-0 No 1{table QD Wellbutrin XL 300 MG XL 300 MG 07-03 t_in_th XL 300 MG 00:00: e_morni 00 ng} Magnesium Magnesium 2019- No Yao 1 tablet Common 07-02 09 Moore with a Spirit 00:00: 00:00 meal - CHI 00 :00 [facility] Sure Sure 2019-0 Yes Yao 1 needle Common Comfort Pen Comfort Pen 8 [facility] [place] 00:00: - CHI 00 [facility] Sure Sure 2019-0 No Sure Comfort Pen Comfort Pen 8-07 Comfort [place] 32G [place] 32G 00:00: Pen X 4 MM X 4 MM 00 [place] 32G X 4 MM Sure Sure 2019-0 No Sure Comfort Pen Comfort Pen 8-07 Comfort [place] 32G [place] 32G 00:00: Pen X 4 MM X 4 MM 00 [place] 32G X 4 MM Sure Sure 2019-0 No Sure Comfort Pen Comfort Pen 8-07 Comfort [place] 32G [place] 32G 00:00: Pen X 4 MM X 4 MM 00 [place] 32G X 4 MM Sure Sure 2019-0 No Sure Comfort Pen Comfort Pen 8-07 Comfort [place] 32G [place] 32G 00:00: Pen X 4 MM X 4 MM 00 [place] 32G X 4 MM Sure Sure 2019-0 No Sure Comfort Pen Comfort Pen 8-07 Comfort [place] 32G [place] 32G 00:00: Pen X 4 MM X 4 MM 00 [place] 32G X 4 MM Sure Sure 2019-0 No Sure Comfort Pen Comfort Pen 8-07 Comfort [place] 32G [place] 32G 00:00: Pen X 4 MM X 4 MM 00 [place] 32G X 4 MM Sure Sure 2019-0 No Sure Comfort Pen Comfort Pen 8-07 Comfort [place] 32G [place] 32G 00:00: Pen X 4 MM X 4 MM 00 [place] 32G X 4 MM VALSARTAN 2018-0 Yes TAKE 1 Univer s 320 mg 4-15 TABLET ity of tablet 00:00: DAILY [address] VALSARTAN 2018-0 Yes TAKE 1 Univer s 320 mg 4-15 TABLET ity of tablet 00:00: DAILY [place] [facility] [place] METFORMIN 2018- Yes [id number] TAKE 1 U nivers 1,000 mg 3-11 TABLET ity of tablet 00:00: TWICE A [place] DAY Medical Branch METFORMIN Yes [id number] TAKE 1 U nivers 1,000 mg 3-11 TABLET ity of tablet 00:00: TWICE A [place] [facility] TRULICITY Yes [id number] 1.5mg INJECT 1.5 Univers 1.5 mg/0.5 3-01 MG UNDER ity o f mL PnIj 00:00: THE [facility] Medical Branch TRULICITY Yes [id number] 1.5mg INJECT 1.5 Univers 1.5 mg/0.5 3-01 MG UNDER ity o f mL PnIj 00:00: THE [facility] Branch Insulin Yes [id number] 20U inject 20 Univers Glargine 2-04 Units ity of (LANTUS 00:00: under the [address] Medical U-100 daily. [place] INSULIN) 100 unit/mL (3 mL) injection Insulin Yes [id number] 20U inject 20 Univers Glargine 2-04 Units ity of (LANTUS 00:00: under the [place] [address] skin Medical U-100 daily. [place] INSULIN) 100 unit/mL (3 mL) injection ergocalcife Yes Take by Uni vers rol, 1-02 mouth. ity of vitamin D2, 19:08: [place] (VITAMIN D 19 Medical ORAL) Branch ergocalcife Yes Take by Uni vers rol, 1-02 mouth. ity of vitamin D2, 19:08: [place] (VITAMIN D 19 Medical ORAL) [place] azithromyci Yes [id number] 250mg Take 1 Univers n 1-02 tablet by ity of (ZITHROMAX 00:00: mouth [place] Z-MELANIE) 250 00 SEE-INSTRU Med ical mg tablet CTIONS. Branch Take 500 mg day 1, then 250 mg days 2 to 5. simvastatin Yes [id number] 10mg Take 1 Univers 10 mg 1-02 tablet by ity of tablet 00:00: mouth [place] daily. Medical Branch azithromyci Yes [id number] 250mg Take 1 Univers n 1-02 tablet by ity of (ZITHROMAX 00:00: mouth [place] Z-MELANIE) 250 00 SEE-INSTRU Med ical mg tablet CTIONS. Branch Take 500 mg day 1, then 250 mg days 2 to 5. simvastatin Yes [id number] 10mg Take 1 Univers 10 mg 1-02 tablet by ity of tablet 00:00: mouth [place] 00 daily. Medical Branch FREESTYLE 2017-11 Yes USE FOUR Univ ers LITE STRIPS 0-15 TIMES A ity o f strip 00:00: DAY [place] 00 DIRECTED Medical Branch FREESTYLE 2017-11 Yes USE FOUR Univ ers LITE STRIPS 0-15 TIMES A ity o f strip 00:00: DAY [place] 00 DIRECTED Medical Branch Insulin 2017-11 Yes [id number] Use as Uni vers [place], 0-01 directed ity of Disposable, 00:00: [place] (MARK PEN 00 Medical NEEDLE) 32 Branch gauge x 5/32" Ndle Insulin 2017-11 Yes [id number] Use as Uni vers [place], 0-01 directed ity of Disposable, 00:00: [place] (MARK PEN 00 Medical NEEDLE) 32 Branch gauge x 5/32" Ndle Blood-Gluco Yes Use as Univ ers se Meter 5-30 directed, ity of (BLOOD 00:00: [facility], [place] GLUCOSE 00 DX:E11.9 Medical MONITORING) Branch Kit lancets 33 Yes Use as Unive rs gauge Misc 5-30 directed, ity of 00:00: Dx:E11.9, [place] 00 QID Medical Branch Blood-Gluco Yes Use as Univ ers se Meter 5-30 directed, ity of (BLOOD 00:00: QID, [place] GLUCOSE 00 DX:E11.9 Medical MONITORING) Branch Kit lancets 33 Yes Use as Unive rs gauge Misc 5-30 directed, ity of 00:00: Dx:E11.9, [place] 00 QID Medical Branch ergocalcife Yes [id number] 26110B Take 1 Univers rol, 1-09 capsule by ity of vitamin d2, 00:00: mouth [place] (VITAMIN 00 weekly. Medical D2) 50,000 Branch unit capsule ergocalcife Yes [id number] 42465O Take 1 Univers rol, 1-09 capsule by [...] 24 hr 00:00: DAILY [place] tablet 00 Medical Branch buPROPion Yes TAKE 1 Univer s XL 150 mg 4-25 TABLET ity of 24 hr 00:00: DAILY [place] tablet 00 Medical Branch buPROPion Yes [id number] TAKE 1 M ethodi XL 4-[address] (WELLBUTRIN 00:00: DAILY Hospi ta XL) 150 MG 00 l 24 hr tablet nystatin Yes APPLY Methodi (MYCOSTATIN 4-[address] ) 100,000 00:00: TWICE A Hospi ta unit/gram 00 DAY l cream buPROPion Yes [id number] TAKE 1 M ethodi XL 4-[address] (WELLBUTRIN 00:00: DAILY Hospi ta XL) 150 MG 00 l 24 hr tablet nystatin Yes APPLY Methodi (MYCOSTATIN 4-[address] ) 100,000 00:00: TWICE A Hospi ta unit/gram 00 DAY l cream buPROPion Yes [id number] TAKE 1 M ethodi XL 4-[address] (WELLBUTRIN 00:00: DAILY Hospi ta XL) 150 MG 00 l 24 hr tablet nystatin Yes APPLY Methodi (MYCOSTATIN 4-[address] ) 100,000 00:00: TWICE A Hospi ta unit/gram 00 DAY l cream buPROPion Yes [id number] TAKE 1 M ethodi XL 4-[address] (WELLBUTRIN 00:00: DAILY Hospi ta XL) 150 MG 00 l 24 hr tablet nystatin Yes APPLY Methodi (MYCOSTATIN 4-[address] ) 100,000 00:00: TWICE A Hospi ta unit/gram 00 DAY l cream buPROPion Yes [id number] TAKE 1 M ethodi XL 4-[address] (WELLBUTRIN 00:00: DAILY Hospi ta XL) 150 MG 00 l 24 hr tablet nystatin Yes APPLY Methodi (MYCOSTATIN 4-[address] ) 100,000 00:00: TWICE A Hospi ta unit/gram 00 DAY l cream benzonatate Yes 100mg Q.[id number] Take 1 Methodi (TESSALON) 3-[id number] 100 MG 00:00: 3D (100 mg Hospita capsule 00 total) by l mouth 3 (three) times a day as needed for cough. benzonatate 2016-0 Yes 100mg Q.[id number] Take 1 Methodi (TESSALON) 3-[id number] 100 MG 00:00: 3D (100 mg Hospita capsule 00 total) by l mouth 3 (three) times a day as needed for cough. benzonatate Yes 100mg Q.[id number] Take 1 Methodi (TESSALON) 3-[id number] 100 MG 00:00: 3D (100 mg Hospita capsule 00 total) by l mouth 3 (three) times a day as needed for cough. benzonatate 0 Yes 100mg Q.[id number] Take 1 Methodi (TESSALON) 3-[id number] 100 MG 00:00: 3D (100 mg Hospita capsule 00 total) by l mouth 3 (three) times a day as needed for cough. benzonatate Yes 100mg Q.[id number] Take 1 Methodi (TESSALON) 3-[id number] 100 MG 00:00: 3D (100 [...] 31 00:00: Hospita gauge x 00 l 316" needle valsartan Yes TAKE 1 Method i (DIOVAN) 3-[address] 320 MG 00:00: DAILY Hospita tablet 00 l BD INSULIN Yes USE Metho di PEN NEEDLE 3-[address] [facility] MINI 31 00:00: Hospita gauge x 00 l 316" needle valsartan Yes TAKE 1 Method i [...] mg 00:00: TWICE A Hosp patti tablet l FREESTYLE Yes USE TO Method i LITE STRIPS 3-[address] strip test 00:00: A DAY Hospit a strips l metFORMIN Yes TAKE 1 Method i (GLUCOPHAGE 3-[address] ) 1,000 mg 00:00: TWICE A Hosp patti tablet l FREESTYLE Yes USE TO Method i LITE STRIPS 3-[address] strip test 00:00: A DAY Hospit a strips l metFORMIN Yes TAKE 1 Method i (GLUCOPHAGE 3-[address] ) 1,000 mg 00:00: TWICE A Hosp patti tablet DAY l FREESTYLE Yes USE TO Method i LITE STRIPS 3-[address] strip test 00:00: A DAY Hospit a strips l metFORMIN Yes TAKE 1 Method i [...] 2017-0 Yes 250mg Q.5D Take 250 Meth adny (NAPROSYN) 2-[address] 250 MG [...] hours as needed for moderate pain. cetirizine 2017-0 Yes 10mg QD Take 10 mg M ethodi (ZyrTEC) 10 2-[address] MG tablet 10:01: daily. Hospit a 19 l cetirizine 0 Yes 10mg QD Take 10 mg M ethodi (ZyrTEC) 10 2-[address] MG tablet 10:01: daily. Hospit a 19 l cetirizine 20170 Yes 10mg QD Take 10 mg M ethodi (ZyrTEC) 10 2-[address] MG tablet 10:01: daily. Hospit a 19 l multivitami 0 Yes 1{tbl} QD Take 1 Me thodi n 2-[address] (THERAGRAN) 10:00: mouth Hospi ta tablet 22 daily. l CYANOCOBALA Yes 1{tbl} QD Take 1 Me thodi MIN, 2-[address] VITAMIN 10:00: mouth Hospita B-12, 22 daily. l (VITAMIN B-12 ORAL) LACTOBACILL 2016-0 Yes 1{capsu QD Take 1 M ethodi US 2-27 le} capsule by st ACIDOPHILUS 10:00: mouth Hospi ta (PROBIOTIC 22 daily. l ORAL) multivitami 2016-0 Yes 1{tbl} QD Take 1 Me thodi n 2-[address] (THERAGRAN) 10:00: mouth Hospi ta tablet 22 daily. l CYANOCOBALA 2016- Yes 1{tbl} QD Take 1 Me thodi [...] 180-240 mg per 24 hr tablet naproxen 2016-0 Yes 250mg Q.5D Take 250 Meth dany (NAPROSYN) 2-[address] 250 MG 09:59: mouth 2 Hospita tablet 07 (two) l times a day with meals. fexofenadin 0 Yes 1{tbl} QD Take 1 Me thodi e-pseudoepH 2-[address] EDrine 09:59: mouth Hospita (DAYLIN-D 07 daily. l 24) 180-240 mg per 24 hr tablet naproxen 2016-0 Yes 250mg Q.5D Take 250 Meth dany (NAPROSYN) 2-[address] 250 MG 09:59: mouth 2 Hospita tablet 07 (two) l times a day with meals. traMADol Yes 50mg Q6H Take 50 mg Met hodi (ULTRAM) 50 2-[address] mg tablet 09:34: every 6 Hospi ta 09 (six) l hours as needed for moderate pain. traMADol Yes 50mg Q6H Take 50 mg Met hodi (ULTRAM) 50 2-[address] mg tablet 09:34: every 6 Hospi ta 09 (six) l hours as needed for moderate pain. traMADol Yes 50mg Q6H Take 50 mg [...] 1-01 TABLET ity of tablet 00:00: DAILY [address] amLODIPine 2015-11 Yes TAKE 1 Unive rs 10 mg 1-01 TABLET ity of tablet 00:00: DAILY [address] amLODIPine 2015-11 Yes TAKE 1 Metho [...] Hospita tablet 00 l pen needle, Yes [id number] Use once Methodi diabetic 31 9-[address] gauge x 00:00: lantus pen Hosp patti 16" 00 l needle pen needle, Yes [id number] Use once Methodi diabetic 31 9-[address] gauge x 00:00: lantus pen Hosp patti 16" l needle pen needle, Yes [id number] Use once Methodi diabetic 31 9-[address] gauge x 00:00: lantus pen Hosp patti 16" 00 l needle pen needle, Yes [id number] Use once Methodi diabetic 31 9-[address] gauge x 00:00: lantus pen Hosp patti 04/12" 00 l needle pen needle, 2016-0 Yes [id number] Use once Methodi diabetic 31 9-[address] gauge x 00:00: lantus pen Hosp patti 04/12" 00 l needle lancets 2015-0 Yes [id number] BID Metho di misc - testing st 00:00: Hospita 00 l lancets 2016-0 Yes [id number] BID Metho di misc 08-[address] 00:00: Hospita 00 l lancets 2016-0 Yes [id number] BID Metho di misc 08-[address] 00:00: Hospita 00 l lancets 2016-0 Yes [id number] BID Metho di misc 08-[address] 00:00: Hospita 00 l lancets 2016-0 Yes [id number] BID Metho di misc 08-[address] [...] on SoloStar SoloStar Moore units Spiri t [facility] Gabapentin Gabapentin Yes Yao 1 capsule Common Moore [facility] Simvastatin Simvastatin Yes Yao 1 tablet Common [facility] in the [facility] evening [facility] Amlodipine Amlodipine Yes Yao 1 tablet Common Besylate Besylate Moore [facility] Trulicity Trulicity Yes Yao as Com mon Moore directed [facility] Aspirin Aspirin Yes Yao 1 tablet Com mon Adult Adult [facility] Gabapentin Gabapentin Yes Yao TAKE 1 Common Moore CAPSULE Spirit TWICE A - CHI DAY [facility] Metformin Metformin Yes Yao 1 tablet Common HCl HCl Moore with a Spirit meal [facility] Zyrtec Zyrtec Yes Yao 1 tablet Commo n Allergy Allergy [facility] Valsartan Valsartan Yes Yao 1 tablet Common [facility] Metformin Metformin No 1{table BID Metformin [...] dose 2019-08-22 Completed [facility] - 08:40:00 [facility] Afluria single dose Afluria single dose 2019-08-22 Completed [facility] - 08:40:00 [facility] Afluria single dose Afluria single dose 2019-08-22 Completed [facility] - 08:40:00 [facility] Afluria single dose Afluria single dose 2019-08-22 Completed [facility] - 08:40:00 [facility] Afluria single dose Afluria single dose 2019-08-22 Completed [facility] - 08:40:00 [facility] Afluria single dose Afluria single dose 2019-08-22 Completed [facility] - 08:40:00 [facility] Afluria single dose Afluria single dose 2019-08-22 Completed [facility] - 08:40:00 [facility] Afluria single dose Afluria single dose 2019-08-22 Completed [facility] - 00:00:00 [facility] Influenza, 2015-08-27 Completed [facility] 00[facility]:00 [facility] Influenza, 2015-08-27 Completed [facility] 00:00:00 Hospital Influenza, 2015-08-27 Completed [facility] 00:00:00 Hospital Influenza, 2015-08-27 Completed [facility] 00:00:00 Hospital Influenza, 2015-08-27 Completed [facility] 00:00:00 [facility] 2011-11-28 Completed [facility] 00:00:00 [facility] 2011-11-28 Completed [facility] 00:00:00 [facility] 2011-11-28 Completed [facility] 00:00:00 [facility] 2011-11-28 Completed [facility] 00:00:00 [facility] 2011-11-28 Completed [facility] 00:[facility]00 Hospital Vital Signs Vital Name Observation Time Observation Value Comments Source height 2021-01-05 10:40:00 59.5 [in_i] [facility] weight 2021-01-05 10:40:00 176.3 [lb_av] [facility] temperature 2021-01-05 10:40:00 97.3 [degF] [facility] bmi 2021-01-05 10:40:00 35.01 kg/m2 [facility] oximetry 2021-01-05 10:40:00 95 % [facility] respiratory rate 2021-01-05 10:40:00 17 /min Comm on [facility] blood pressure 2021-01-05 10:40:00 135 mm[Hg] [facility] systolic [facility] blood pressure 2021-01-05 10:40:00 60 mm[Hg] [facility] - diastolic [facility] height 2021-01-05 11:00:00 59.5 [in_i] [facility] weight 2021-01-05 11:00:00 176.3 [lb_av] [facility] temperature 2021-01-05 11:00:00 97.3 [degF] [facility] bmi 2021-01-05 11:00:00 35.01 kg/m2 [facility] oximetry 2021-01-05 11:00:00 95 % [facility] blood pressure 2021-01-05 11:00:00 135 mm[Hg] Common [facility] - systolic [facility] blood pressure 2021-01-05 11:00:00 60 mm[Hg] Common [facility] - diastolic [facility] height 2020-10-06 13:00:00 59.5 [in_i] Common [facility] weight 2020-10-06 13:00:00 173.3 [lb_av] [facility] temperature 2020-10-06 13:00:00 97.2 [degF] Common [facility] bmi 2020-10-06 13:00:00 34.41 kg/m2 [facility] oximetry 2020-10-06 13:00:00 97 % [facility] respiratory rate 2020-10-06 13:00:00 19 /min Comm on [facility] blood pressure 2020-10-06 13:00:00 132 mm[Hg] [facility] - systolic [facility] blood pressure 2020-10-06 13:00:00 62 mm[Hg] [facility] diastolic [facility] Procedures This patient has no known procedures. Plan of Care Planned Activity Planned Date Details Comments Source Future Scheduled 2023-03-02 COVID-19 VACCINE (#1) [facility] Test 19:06:15 [code = COVID-19 VACCINE (#1)] Future Scheduled 2023-03-02 COLONOSCOPY SCREENING [facility] Test 19:06:15 [code = COLONOSCOPY SCREENING] Future Scheduled 2023-03-02 SHINGLES VACCINES (1 Met [facility] Test 19:06:15 of 2) [code = SHINGLES VACCINES (1 of 2)] Future Scheduled 2023-03-02 BREAST CANCER [facility] Test 19:06:15 SCREENING [code = BREAST CANCER SCREENING] Future Scheduled 2023-03-02 65+ PNEUMOCOCCAL [facility] Test 19:06:15 VACCINE (1 - PCV) [code = 65+ PNEUMOCOCCAL VACCINE (1 - PCV)] Future Scheduled 2023-03-02 INFLUENZA VACCINE Method [facility] Test 19:06:15 [code = INFLUENZA VACCINE] Future Scheduled 2023-03-02 COVID-19 VACCINE (#1) [facility] Test 19:06:15 [code = COVID-19 VACCINE (#1)] Future Scheduled 2023-03-02 COLONOSCOPY SCREENING [facility] Test 19:06:15 [code = COLONOSCOPY SCREENING] Future Scheduled 2023-03-02 SHINGLES VACCINES (1 Met [facility] Test 19:06:15 of 2) [code = SHINGLES VACCINES (1 of 2)] Future Scheduled 2023-03-02 BREAST CANCER [facility] Test 19:06:15 SCREENING [code = BREAST CANCER SCREENING] Future Scheduled 2023-03-02 65+ PNEUMOCOCCAL [facility] Hospital Test 19:06:15 VACCINE (1 - PCV) [code = 65+ PNEUMOCOCCAL VACCINE (1 - PCV)] Future Scheduled 2023-03-02 INFLUENZA VACCINE Method [facility] Hospital Test 19:06:15 [code = INFLUENZA VACCINE] Future Scheduled 2022-01-04 COVID-19 VACCINE (1) Met [facility] Test 18:24:49 [code = COVID-19 VACCINE (1)] Future Scheduled 2022-01-04 COLONOSCOPY SCREENING [facility] Test 18:24:49 [code = COLONOSCOPY SCREENING] Future Scheduled 2022-01-04 SHINGLES VACCINES (#1) M [facility] Test 18:24:49 [code = SHINGLES VACCINES (#1)] Future Scheduled 2022-01-04 BREAST CANCER [facility] Test 18:24:49 SCREENING [code = BREAST CANCER SCREENING] Future Scheduled 2022-01-04 65+ [facility] 18:24:49 VACCINE (1 of 1 - PPSV23) [code = 65+ PNEUMOCOCCAL VACCINE (1 of 1 - PPSV23)] Future Scheduled 2022-01-04 INFLUENZA VACCINE Method is Hospital Test 18:24:49 [code = INFLUENZA VACCINE] Future Scheduled COVID-19 VACCINE (1) Met [facility] Test [code = COVID-19 VACCINE (1)] Future Scheduled Scre[facility] Test malignant neoplasm of cervix (procedure) [code = 494025640] Future Scheduled COLONOSCOPY SCREENING [facility] Test [code = COLONOSCOPY SCREENING] Future Scheduled [facility]INES (#[facility] [code = SHINGLES VACCINES (#1)] Future Scheduled BREAST CANCER [facility] Test SCREENING [code = BREAST CANCER SCREENING] Future Scheduled 65+ PNEUMOCOCCAL [facility] Test VACCINE (1 of 1 - PPSV23) [code = 65+ PNEUMOCOCCAL VACCINE (1 of 1 - PPSV23)] Future Scheduled INFLUENZA VACCINE [facility] Test [code = INFLUENZA VACCINE] Future Scheduled COVID-19 VACCINE (1) [facility] Test [code = COVID-19 VACCINE (1)] Future Scheduled [facility] Test malignant neoplasm of cervix (procedure) [code = 128009648] Future Scheduled COLONOSCOPY SCREENING [facility] Test [code = COLONOSCOPY SCREENING] Future Scheduled SHINGLES VACCINES (#1) [facility] Test [code = SHINGLES VACCINES (#1)] Future Scheduled BREAST CANCER [facility] Test SCREENING [code = BREAST CANCER [...] Department ID 2021-12-23 Outpatient Moore, STLMLC STLMLC [id number] Common 11:18:59 Yoa [id number] [facility] 2021-12-23 Outpatient Moore, STLMLC STLMLC [id number] Common 11:18:48 Yao [id number] [facility] 2021-12-23 Outpatient Moore, STLMLC STLMLC [id number] Common 11:16:49 Yao [id number] [facility] 2021-04-10 2021-04-10 (TEL) STLMLC STLMLC [id number] Co mmon 00:00:00 00:00:00 [facility] 2021-01-21 2021-01-21 (TEL) STLMLC STLMLC [id number] Co mmon 00:00:00 00:00:00 [facility] 2021-01-19 2021-01-19 (TEL) STLMLC STLMLC [id number] Co mmon 00:00:00 00:00:00 [facility] 2021-01-05 2021-01-05 OFFICE STLMLC STLMLC [id number] Co mmon 00:00:00 00:00:00 VISIT Spirit ESTAB PT - CHI LEVEL 4 [facility] 2021-01-05 2021-01-05 (MCR WELL) STLMLC STLMLC [id number] Common 00:00:00 00:00:00 Medicare Spiri t Wellness - CHI [facility] 2020-10-06 2020-10-06 OFFICE STLMLC STLMLC [id number] Co mmon 00:00:00 00:00:00 VISIT Spirit ESTAB PT - CHI LEVEL 4 [facility] 2020-09-16 2020-09-16 (TEL) STLMLC STLMLC [id number] Co mmon 00:00:00 00:00:00 Spirit - [facility] 2020-07-28 2020-07-28 [facility] [id number] Common 10:15:00 10:15:[address] Family [facility] 2020-07-03 2020-07-03 [facility] [id number] Common 13:15:00 13:15:[address] Family [facility] 2020-06-03 2020-06-03 [facility] [id number] Common 08:10:00 08:10:[address] Family [facility] 2020-04-02 2020-04-02 [facility] [id number] Common 14:30:00 14:30:[address] Family - [facility] 2020-03-19 2020-03-19 [facility] [id number] Common 16:00:00 16:00:[address] Family - [facility] 2020-03-18 2020-03-18 [facility] [id number] Common 10:06:00 10:06:[address] Family - [facility] 2020-02-19 2020-02-19 [facility] [id number] Common 10:31:00 10:31:[address] Family - [facility] 2020-02-14 2020-02-14 [facility] [id number] Common 11:00:00 11:00:00 t [facility] [address] [facility] 2020-02-14 2020-02-14 [facility] [id number] Common 09:52:00 09:52:00 t [facility] [address] [facility] 2020-01-25 2020-01-25 [facility] [id number] Common 10:49:00 10:49:[address] [facility] 2020-01-12 2020-01-12 [facility] [id number] 00:00:00 00:00:00 [place] [id number] Aure[place] [id number] Professio [id number] [address] 2020-01-12 2020-01-12 [facility] [id number] [facility] 00:00:00 00:00:00 [facility] [id number] [facility] [place] [id number] [id number] [facility] 220 [facility] 2019-12-25 2019-12-25 [facility] [id number] Common 09:30:00 09:30:00 t Bibb Spiri t Bibb [facility] 2019-11-30 2019-11-30 [facility] [id number] Common 08:30:00 08:30:[address] [facility] 2019-11-16 2019-11-16 [facility] [id number] Common 15:35:00 15:35:[address] [facility] 2019-11-01 2019-11-01 [facility] [id number] Common 10:00:00 10:00:[address] [facility] 2019-10-31 2019-10-31 [facility] [id number] Common 09:59:00 09:59:[address] [facility] 2019-08-28 2019-08-28 [facility] [id number] Common 09:51:00 09:51:[address] [facility] 2019-08-27 2019-08-27 [facility] [id number] Common 09:46:00 09:46:[address] [facility] 2019-08-22 2019-08-22 [facility] [id number] Common 08:15:00 08:15:[address] [facility] Results This patient has no known results.
[2023-04-07] MEDS ORDERED: HYDROCODONE/APAP 5/325 MG TAB ONE (20:51)
--- NOTE | 2023-04-07 21:14 | RAD REPORT ---
EXAM DESCRIPTION: RAD - Knee Left 3 View - 04/07/2023 8:51 pm CLINICAL HISTORY: Pain;Swelling COMPARISON: Humerus Right dated 04/07/2023 FINDINGS/IMPRESSION: No acute fracture. No malalignment. Chondrocalcinosis mediolateral compartments . 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 .
--- NOTE | 2023-04-07 21:14 | RAD REPORT ---
EXAM DESCRIPTION: RAD - Humerus Right - 04/07/2023 8:51 pm CLINICAL HISTORY: PAIN COMPARISON: No comparisons FINDINGS/IMPRESSION: No acute fracture. No malalignment. No significant focal degenerative changes.
--- NOTE | 2023-04-07 21:26 | ER ---
Nurse's Notes [facility] Name: Jazlyn Granados Age: 67 yrs Sex: Female : 1955 Arrival Date: 04/07/2023 Time: 19:00 Bed 19 Private MD: Diagnosis: Pain in right upper arm-from fall;Pain in left knee Presentation: 04/07 19:28 Chief complaint: Patient states: I was getting up off of the toilet about an hour ago kd3 and my left knee gave out from under me and i fell and tried to catch myself with my right arm and hit my right shoulder on the ground. I am not on any blood thinners. Coronavirus screen: Vaccine status:. Coronavirus screen: Vaccine status: Patient reports being unvaccinated. Ebola Screen: No symptoms or risks identified at this time. Initial Sepsis Screen: Does the patient meet any 2 criteria? No. Patient's initial sepsis screen is negative. Does the patient have a suspected source of infection? No. Patient's initial sepsis screen is negative. Risk Assessment: Do you want to hurt yourself or someone else? Patient reports no desire to harm self or others. Onset of symptoms was April 07, 2023. 19:28 Method Of Arrival: Wheelchair kd3 19:28 Acuity: KAELYN 3 kd3 Triage Assessment: 19:31 General: Appears uncomfortable, Behavior is calm, cooperative. Pain: Complains of pain kd3 in right arm and left leg. Historical: - Allergies: 19:31 Lisinopril; kd3 - PMHx: 19:31 Anxiety; Hyperlipidemia; Diabetes - IDDM; Depression; Hypertension; kd3 - PSHx: 19:31 right hand; kd3 - Immunization history:: Adult Immunizations up to date. - Social history:: Smoking status: Patient denies any tobacco usage or history of. Screenin:32 [facility] ED Fall Risk Assessment (Adult) History of falling in the last 3 months, ha1 including since admission Yes- single mechanical fall (1 pt) Confusion or Disorientation No (0 pts) Intoxicated or Sedated No (0 pts) Impaired Gait Yes (1 pt) Mobility Assist Device Used Yes (1 pt) Altered Elimination No (0 pt) Score/Fall Risk Level 3 or more points = High Risk Oriented to surroundings, Maintained a safe environment, Educated pt \T\ family on fall prevention, incl call for assistance when getting out of bed, Hourly rounding (assess needs \T\ fall precautionary measures) done. 22:22 Abuse screen: Denies threats or abuse. Denies injuries from another. Nutritional ha1 screening: No deficits noted. Tuberculosis screening: No symptoms or risk factors identified. Assessment: 20:58 General: Appears uncomfortable, Behavior is calm, cooperative. Pain: Complains of pain ha1 in right arm and right shoulder Pain does not radiate. Pain currently is 9 out of 10 on a pain scale. Quality of pain is described as. 21:40 Reassessment: Patient and/or family updated on plan of care and expected duration. Pain ha1 level reassessed. Patient is alert, oriented x 3, equal unlabored respirations, skin warm/dry/pink. Patient states feeling better. Patient states symptoms have improved. Neuro: Level of Consciousness is awake, alert, obeys commands, Oriented to person, place, time, situation. Respiratory: Airway is patent Respiratory effort is even, unlabored, Respiratory pattern is regular, symmetrical. 22:00 Reassessment: Patient and/or family updated on plan of care and expected duration. Pain ha1 level reassessed. Patient is alert, oriented x 3, equal unlabored respirations, skin warm/dry/pink. awaiting on family to pick her up. Vital Signs: 19:27 BP 123 / 67; Pulse 81; Resp 19; Temp 97.7(TE); Pulse Ox 96% ; Weight 65.77 kg; Height 4 ha1 ft. 10 in. ; 20:30 BP 140 / 61; Pulse 89; Resp 18; Pulse Ox 98% on R/A; ha1 21:45 BP 135 / 62; Pulse 85; Resp 18 S; Pulse Ox 97% on R/A; ha1 22:00 BP 139 / 63; Pulse 83; Resp 18 S; Pulse Ox 98% on R/A; ha1 19:27 Body Mass Index 30.30 (65.77 kg, 147.32 cm) ha1 ED Course: 19:03 Patient arrived in ED. mr 19:30 Triage completed. kd3 19:31 Arm band placed on left wrist. kd3 19:32 Patient has correct armband on for positive identification. Placed in gown. Bed in low ha1 position. Call light in reach. Side rails up X 1. 19:35 Bill Dash PA is PHCP. cp 19:35 Royal Ross MD is Attending Physician. cp 20:29 Hodan Shoemaker, NETO is Primary Nurse. ha1 20:53 XRAY Knee LEFT 3 view In Process Unspecified. EDMS 20:53 XRAY Humerus RIGHT In Process Unspecified. EDMS 22:22 No provider procedures requiring assistance completed. Patient did not have IV access ha1 during this emergency room visit. Administered Medications: 20:51 Drug: HYDROcodone-acetaminophen PO 5 mg-325 mg 1 tabs Route: PO; ha1 21:20 Follow up: Response: No adverse reaction; Pain is decreased; RASS: Alert and Calm (0) ha1 Medication: 22:23 VIS not applicable for this client. ha1 Outcome: 21:25 Discharge ordered by . cp 22:22 Discharged to home via wheelchair, with family. ha1 22:22 Condition: stable 22:22 Discharge instructions given to patient, family, Instructed on discharge instructions, follow up and referral plans. medication usage, Demonstrated understanding of instructions, follow-up care, medications, Prescriptions given X 1. 22:25 Patient left the ED. ha1 Signatures: Dispatcher [employer] [facility] Nahomy Lowe mr Bill Dash PA PA Lyn Murillo, RN RN kd3 Hodan Shoemaker, RN RN ha1 Corrections: (The following items were deleted from the chart) 21:45 19:27 BP 123 / 67; Pulse 18bpm; Resp 19bpm; Pulse Ox 96%; Temp 97.7F Temporal; 65.77 ha1 kg; Height 4 ft. 10 in.; BMI: 30.3; kd3
--- NOTE | 2023-04-07 21:26 | EDPHYS ---
Physician Documentation [facility] Name: Jazlyn Granados Age: 67 yrs Sex: Female : 1955 Arrival Date: 04/07/2023 Time: 19:00 Bed 19 Private MD: ED Physician Royal Ross HPI: 04/07 20:20 This 67 yrs old Female presents to ER via Wheelchair with complaints of Fall Injury, cp Knee Injury, Arm Injury. 20:20 Details of fall: The patient fell from an upright position, while standing. cp 20:20 Onset: The symptoms/episode began/occurred today. Associated injuries: The patient cp sustained right upper arm. Patient reports she has been having left knee pain and swelling for past several days and left knee gave out causing her to fall and land on right upper arm. Denies hitting head. No LOC. No syncope. Denies head, neck and/or back pain. Historical: - Allergies: 19:31 Lisinopril; kd3 - PMHx: 19:31 Anxiety; Hyperlipidemia; Diabetes - IDDM; Depression; Hypertension; kd3 - PSHx: 19:31 right hand; kd3 - Immunization history:: Adult Immunizations up to date. - Social history:: Smoking status: Patient denies any tobacco usage or history of. ROS: 20:30 Constitutional: Negative for body aches, chills, fever, poor PO intake. cp 20:30 Eyes: Negative for injury, pain, redness, and discharge. cp 20:30 Neck: Negative for pain with movement, pain at rest, stiffness. 20:30 Cardiovascular: Negative for chest pain, palpitations. 20:30 Respiratory: Negative for cough, shortness of breath, wheezing. 20:30 Abdomen/GI: Negative for abdominal pain, nausea, vomiting, and diarrhea. 20:30 Back: Negative for pain at rest, pain with movement. 20:30 : Negative for urinary symptoms. 20:30 MS/extremity: Positive for pain, of the left knee and right upper arm, Negative for deformity, paresthesias. 20:30 Neuro: Negative for altered mental status, dizziness, headache, loss of consciousness, syncope, weakness. 20:30 All other systems are negative. Exam: 20:33 Constitutional: The patient appears in no acute distress, alert, awake, non-toxic, well cp developed, well nourished, uncomfortable. 20:33 Head/Face: Normocephalic, atraumatic. cp 20:33 Eyes: Periorbital structures: appear normal, Pupils: equal, round, and reactive to light and accomodation, Extraocular movements: intact throughout, Conjunctiva: normal, no exudate, no injection, Sclera: no appreciated abnormality, Lids and lashes: appear normal, bilaterally. 20:33 ENT: External ear(s): are unremarkable, Nose: is normal, Mouth: Lips: moist, Oral mucosa: moist, Posterior pharynx: Airway: no evidence of obstruction, patent. 20:33 Neck: C-spine: vertebral tenderness, is not appreciated, crepitus, is not appreciated, ROM/movement: is normal, is supple, without pain, no range of motions limitations, no nuchal rigidity. 20:33 Chest/axilla: Inspection: normal. 20:33 Cardiovascular: Rate: normal. 20:33 Respiratory: the patient does not display signs of respiratory distress, Respirations: normal, no use of accessory muscles, no retractions. 20:33 Abdomen/GI: Inspection: abdomen appears normal, Palpation: abdomen is soft and non-tender, in all quadrants. 20:33 Back: pain, is absent, ROM is normal. 20:33 Musculoskeletal/extremity: Extremities: grossly normal except: noted in the right upper arm: tenderness, pain with palpation and ROM right shoulder and right elbow, There is no evidence of decreased ROM, deformity, noted in the left knee: pain, swelling, tenderness, no evidence of decreased ROM, deformity. 20:33 Skin: cellulitis, is not appreciated. 20:33 Neuro: Orientation: to person, place \T\ time. Mentation: is normal, Motor: moves all fours, strength is normal. Vital Signs: 19:27 BP 123 / 67; Pulse 81; Resp 19; Temp 97.7(TE); Pulse Ox 96% ; Weight 65.77 kg; Height 4 ha1 ft. 10 in. ; 20:30 BP 140 / 61; Pulse 89; Resp 18; Pulse Ox 98% on R/A; ha1 21:45 BP 135 / 62; Pulse 85; Resp 18 S; Pulse Ox 97% on R/A; ha1 22:00 BP 139 / 63; Pulse 83; Resp 18 S; Pulse Ox 98% on R/A; ha1 19:27 Body Mass Index 30.30 (65.77 kg, 147.32 cm) ha1 MDM: 19:35 Patient medically screened. cp 21:25 Data reviewed: vital signs, nurses notes, radiologic studies, plain films. cp 21:25 Differential diagnosis: closed head injury, contusion, fracture, multiple trauma. cp Consideration of Admission/Observation Escalation of care including admission/observation considered. I considered the following discharge prescriptions or medication management in the emergency department Medications were administered in the Emergency Department. See MAR. Test considered but Not performed: CT: head/c-spine, traumagram. Care significantly affected by the following chronic conditions: Diabetes, Hypertension. Counseling: I had a detailed discussion with the patient and/or guardian regarding: the historical points, exam findings, and any diagnostic results supporting the discharge/admit diagnosis, radiology results, the need for outpatient follow up, a orthopedic surgeon, for knee pain, to return to the emergency department if symptoms worsen or persist or if there are any questions or concerns that arise at home. Response to treatment: the patient's symptoms have markedly improved after treatment, and as a result, I will discharge patient. 04/07 20:13 Order name: XRAY Knee LEFT 3 view; Complete Time: 21:20 cp 04/07 21:20 Interpretation: Report reviewed. cp 04/07 20:13 Order name: XRAY Humerus RIGHT; Complete Time: 21:20 cp 04/07 21:20 Interpretation: Report reviewed. cp 04/07 22:00 Order name: Scotty wrap-joint; Complete Time: 22:21 cp 04/07 22:00 Order name: Sling; Complete Time: 22:21 cp Administered Medications: 20:51 Drug: HYDROcodone-acetaminophen PO 5 mg-325 mg 1 tabs Route: PO; ha1 21:20 Follow up: Response: No adverse reaction; Pain is decreased; RASS: Alert and Calm (0) ha1 Disposition: 04/08 16:37 Co-signature as Attending Physician, Royal Ross MD. rt Disposition Summary: 04/07/23 21:25 Discharge Ordered Location: Home cp Problem: new cp Symptoms: have improved cp Condition: Stable cp Diagnosis - Pain in right upper arm - from fall cp - Pain in left knee cp Followup: cp - With: Private Physician - When: 2 - 3 days - Reason: Recheck today's complaints Discharge Instructions: - Discharge Summary Sheet cp - Elastic Bandage and RICE Therapy cp - How to Use a Knee Brace cp - Shoulder Pain cp - Acute Knee Pain, Adult cp - Shoulder Exercises-SportsMed cp Forms: - Medication Reconciliation Form cp - Thank You Letter cp - Antibiotic Education cp - Prescription Opioid Use cp Prescriptions: - Mobic 7.5 mg Oral Tablet - take 1 tablet by ORAL route once daily take with food; 20 tablet; Refills: 0, cp Product Selection Permitted Signatures: Dispatcher [employer] EDBill Goyal PA PA cp Lyn Gonzalez RN RN kd3 Hodan Shoemaker RN RN ha1 Royal Ross MD MD rt
[2023-04-07 22:29] VITALS: TEMP 97.7
[2023-04-07 22:33] VITALS: BP 139/63; O2SAT 98
== END 2023-04-07 22:25 | disposition home or self-care (01) ==
LOC: ER 19:00
DX: M79.621 Pain in right upper arm (principal); M25.562 Pain in left knee; W19.XXXA Unspecified fall, initial encounter; I10 Essential (primary) hypertension; Z88.8 Allergy status to other drugs, medicaments and biological substances
CPT/HCPCS: 99284

== ENCOUNTER 2025-02-08 08:15 | Emergency (ER) | payer OTHER ==
--- NOTE | 2025-02-08 09:16 | RAD REPORT ---
EXAMINATION: XR LEFT KNEE CLINICAL INDICATION: PAIN TECHNIQUE: Multiple projections of the left knee were obtained. COMPARISON: 04/07/2023 FINDINGS: No acute fracture or dislocation seen. Chondrocalcinosis is present of the menisci. There i s [id number] tricompartmental osteoarthritis. Soft tissue swelling noted superior to the patella.
--- NOTE | 2025-02-08 09:44 | ER ---
Nurse's Notes [facility] Name: Jazlyn Granados Age: 69 yrs Sex: Female : 1955 Arrival Date: 02/08/2025 Time: 08:15 Bed 7 Private MD: Diagnosis: Pain in left knee Presentation: 02/08 08:30 Chief complaint: Patient states: L knee pain after hitting it on dining table a few ph weeks ago, states, " Then about a week ago I stepped over a baby gate and it got worse." Swelling noted to L knee, pt ambulatory upon arrival. Coronavirus screen: Vaccine status: Patient reports being unvaccinated. Ebola Screen: No symptoms or risks identified at this time. Initial Sepsis Screen: Does the patient meet any 2 criteria? No. Patient's initial sepsis screen is negative. Does the patient have a suspected source of infection? No. Patient's initial sepsis screen is negative. Risk Assessment: Do you want to hurt yourself or someone else? Patient reports no desire to harm self or others. Onset of symptoms was February 08, 2025. 08:30 Method Of Arrival: Ambulatory ph 08:30 Acuity: KAELYN 4 ph Triage Assessment: 09:22 General: Appears in no apparent distress. comfortable, Behavior is calm, cooperative. ph Pain: Complains of pain in left knee. Neuro: Level of Consciousness is awake, alert, obeys commands, Oriented to person, place, time, situation. Derm: Skin is pink, warm \\T\\ dry. Musculoskeletal: Circulation, motion, and sensation intact. Range of motion: intact in all extremities, Swelling present in left knee. Historical: - Allergies: 09:21 Lisinopril; ph - PMHx: :21 Anxiety; Depression; Diabetes - IDDM; Hyperlipidemia; Hypertension; ph - PSHx: : right hand; ph - Immunization history:: Adult Immunizations unknown. - Infectious Disease History:: Denies. - Social history:: Smoking status: Patient denies any tobacco usage or history of. - Family history:: not pertinent. Screenin:23 [facility] ED Fall Risk Assessment (Adult) History of falling in the last 3 months, ph including since admission No falls in past 3 months (0 pts) Confusion or Disorientation No (0 pts) Intoxicated or Sedated No (0 pts) Impaired Gait No (0 pts) Mobility Assist Device Used No (0 pt) Altered Elimination No (0 pt) Score/Fall Risk Level 0 - 2 = Low Risk Oriented to surroundings, Maintained a safe environment, Hourly rounding (assess needs \\T\\ fall precautionary measures) done. Abuse screen: Denies threats or abuse. Denies injuries from another. Nutritional screening: No deficits noted. Tuberculosis screening: No symptoms or risk factors identified. Assessment: 09:22 General: Appears in no apparent distress. uncomfortable, Behavior is calm, cooperative, bp appropriate for age. 09:50 Reassessment: Patient appears in no apparent distress at this time. Patient is alert, bp oriented x 3, equal unlabored respirations, skin warm/dry/pink. Vital Signs: 08:30 BP 148 / 83; Pulse 67; Resp 18; Temp 97.8; Pulse Ox 99% on R/A; Weight 61.23 kg; Height ph 4 ft. 11 in. ; 09:50 BP 135 / 79; Pulse 75; Resp 16; Pulse Ox 99% ; bp 08:30 Body Mass Index 27.27 (61.23 kg, 149.86 cm) ph ED Course: 08:19 Patient arrived in ED. mr 08:19 Royal Ross MD is Attending Physician. rt 08:29 Mickey Holliday, NETO is Primary Nurse. bp 09:03 XRAY Knee LEFT 3 view In Process Unspecified. EDMS 09:21 Triage completed. ph 09:23 Arm band placed on Patient placed in an exam room, on a stretcher. ph 09:23 Patient has correct armband on for positive identification. Bed in low position. Call ph light in reach. Side rails up X 1. Pulse ox on. NIBP on. Door closed. Noise minimized. Warm blanket given. 09:23 No provider procedures requiring assistance completed. Patient did not have IV access ph during this emergency room visit. Administered Medications: No medications were administered Medication: 09:23 VIS not applicable for this client. ph Outcome: 09:43 Discharge ordered by MD. rt 09:51 Discharged to home ambulatory, bp 09:51 Condition: stable 09:51 Discharge instructions given to patient, Instructed on discharge instructions, follow up and referral plans. Demonstrated understanding of instructions, follow-up care, 09:52 Patient left the ED. bp Signatures: Dispatcher [employer] [facility] Nahomy Lowe [facility] Reg mr Zayra Weinstein, NETO RN ph Mickey Holliday RN RN bp Royal Ross MD MD rt
--- NOTE | 2025-02-08 09:44 | EDPHYS ---
Physician Documentation [facility] Name: Jazlyn Granados Age: 69 yrs Sex: Female : 1955 Arrival Date: 02/08/2025 Time: 08:15 Bed 7 Private MD: ED Physician Royal Ross HPI: 02/08 13:08 This 69 yrs old Female presents to ER via Ambulatory with complaints of Leg Pain, Left. rt 13:08 Several weeks ago, the patient reports hitting her left knee causing some pain at that rt time which is since improved. Patient states that yesterday, she was stepping over a baby gate, afterwards had worsening pain to the left knee. Denies swelling, other injury, acute complaints, symptoms are aching nature, nonradiating, no other aggravating alleviating factors.. Historical: - Allergies: :21 Lisinopril; ph - PMHx: 09:21 Anxiety; Depression; Diabetes - IDDM; Hyperlipidemia; Hypertension; ph - PSHx: 09:21 right hand; ph - Immunization history:: Adult Immunizations unknown. - Infectious Disease History:: Denies. - Social history:: Smoking status: Patient denies any tobacco usage or history of. - Family history:: not pertinent. ROS: 13:08 Constitutional: Negative for fever, chills, and weight loss, Cardiovascular: Negative rt for chest pain, palpitations, and edema, Respiratory: Negative for shortness of breath, cough, wheezing, and pleuritic chest pain, Skin: Negative for injury, rash, and discoloration, Neuro: Negative for headache, weakness, numbness, tingling, and seizure, 13:08 MS/extremity: Positive for pain, Negative for injury or acute deformity, Exam: 13:25 Constitutional: This is a well developed, well nourished patient who is awake, alert, rt and in no acute distress. Head/Face: Normocephalic, atraumatic. Chest/axilla: Normal chest wall appearance and motion. Nontender with no deformity. No lesions are appreciated. Cardiovascular: Regular rate and rhythm with a normal S1 and S2. No gallops, murmurs, or rubs. Normal PMI, no JVD. No pulse deficits. Respiratory: Lungs have equal breath sounds bilaterally, clear to auscultation and percussion. No rales, rhonchi or wheezes noted. No increased work of breathing, no retractions or nasal flaring. Abdomen/GI: Soft, non-tender, with normal bowel sounds. No distension or tympany. No guarding or rebound. No evidence of tenderness throughout. 13:25 Musculoskeletal/extremity: Mild tenderness to the medial aspect of the knee, no swelling noted, pulses, motor, sensation intact. Vital Signs: 08:30 BP 148 / 83; Pulse 67; Resp 18; Temp 97.8; Pulse Ox 99% on R/A; Weight 61.23 kg; Height ph 4 ft. 11 in. ; 09:50 BP 135 / 79; Pulse 75; Resp 16; Pulse Ox 99% ; bp 08:30 Body Mass Index 27.27 (61.23 kg, 149.86 cm) ph MDM: 09:09 Medical Screening Exam initiated rt 13:25 Differential diagnosis: Fracture, contusion. Data reviewed: vital signs, nurses notes, rt radiologic studies. Independent interpretation of the following test(s) in the Emergency Department X-Ray: My interpretation is No fracture seen on interpretation of x-ray images. Care significantly affected by the following chronic conditions: Hypertension. Counseling: I had a detailed discussion with the patient and/or guardian regarding the historical points, exam findings, and any diagnostic results supporting the discharge/admit diagnosis, radiology results, the need for outpatient follow up. 02/08 08:37 Order name: XRAY Knee LEFT 3 view; Complete Time: 09:16 ph Administered Medications: No medications were administered Disposition Summary: 02/08/25 09:43 Discharge Ordered Notes: Location: Home rt Problem: an ongoing problem rt Symptoms: have improved rt Condition: Stable rt Diagnosis - Pain in left knee rt Followup: rt - With: Private Physician - When: 5 - 6 days - Reason: Discharge Instructions: - Discharge Summary Sheet rt - Acute Knee Pain, Adult rt Forms: - Medication Reconciliation Form rt - Antibiotic Education rt - Prescription Opioid Use rt - Patient Portal Instructions rt - Leadership Thank You Letter rt Signatures: Dispatcher MedHoZayra Stratton RN RN ph Royal Ross MD MD rt
[2025-02-08 10:01] VITALS: TEMP 97.8; O2SAT 99
[2025-02-08 10:02] VITALS: BP 135/79
== END 2025-02-08 09:52 | disposition home or self-care (01) ==
LOC: ER 08:15
DX: M25.562 Pain in left knee (principal)
CPT/HCPCS: 99283